=== PATIENT | male | born 1950 | race Caucasian/White ===

== ENCOUNTER 2019-10-18 08:29 | Outpatient (CLI) | payer OTHER, SELFPAY ==
[2019-10-18 09:00] LABS: Potassium 3.7 mmol/L (3.4-5.0)
[2019-10-18 09:04] LABS: Alanine Aminotransferase 17 U/L (4-50); Albumin Level 4.3 g/dL (3.5-5.1); Alkaline Phosphatase 91 U/L (38-126); Aspartate Amino Transferase 21 U/L (17-59); Bilirubin,Total 1.2 mg/dL (0.2-1.3); Blood Urea Nitrogen 16 mg/dL (9-20); Calcium 8.5 mg/dL (8.4-10.2); Carbon Dioxide 26 mmol/L (22-30); Chloride 108 mmol/L (98-107); Cholesterol 84 mg/dL (0-200); Estimated Glomerular Filt Rate > 60; Glucose 114 mg/dL (75-110); HDL Direct 27 mg/dL; Sodium 141 mmol/L (137-145); Triglycerides 66 mg/dL (<150)
[2019-10-18 09:11] LABS: LDL Cholesterol Direct 41 mg/dL
== END 2019-10-18 08:30 | disposition home or self-care (01) ==
PROVIDERS: PCP Emergency Medicine; Visit Provider Emergency Medicine
DX: E78.5 Hyperlipidemia, unspecified (principal)
CPT/HCPCS: 36415; 80053; 80061

== ENCOUNTER 2020-02-10 09:22 | Outpatient (CLI) | payer OTHER, SELFPAY ==
[2020-02-10 10:07] LABS: Alanine Aminotransferase 13 U/L (4-50); Albumin Level 4.3 g/dL (3.5-5.1); Alkaline Phosphatase 81 U/L (38-126); Anion Gap 7 mmol/L (8-16); Aspartate Amino Transferase 20 U/L (17-59); Bilirubin,Total 1.1 mg/dL (0.2-1.3); Blood Urea Nitrogen 20 mg/dL (9-20); Carbon Dioxide 28 mmol/L (22-30); Chloride 106 mmol/L (98-107); Cholesterol 96 mg/dL (0-200); Estimated Glomerular Filt Rate 60; Glucose 108 mg/dL (75-110); HDL Direct 34 mg/dL; Potassium 4.3 mmol/L (3.4-5.0); Sodium 141 mmol/L (137-145); Triglycerides 85 mg/dL (<150)
[2020-02-10 10:18] LABS: LDL Cholesterol Direct 47 mg/dL
== END 2020-02-10 09:23 | disposition home or self-care (01) ==
PROVIDERS: PCP Emergency Medicine; Visit Provider Emergency Medicine
DX: E78.5 Hyperlipidemia, unspecified (principal)
CPT/HCPCS: 36415; 80053; 80061

== ENCOUNTER 2020-05-11 09:25 | Outpatient (CLI) | payer OTHER, SELFPAY ==
[2020-05-11 09:54] LABS: Alanine Aminotransferase 14 U/L (4-50); Albumin Level 4.2 g/dL (3.5-5.1); Alkaline Phosphatase 73 U/L (38-126); Anion Gap 7 mmol/L (8-16); Aspartate Amino Transferase 18 U/L (17-59); Bilirubin,Total 0.8 mg/dL (0.2-1.3); Blood Urea Nitrogen 15 mg/dL (9-20); Calcium 8.7 mg/dL (8.4-10.2); Carbon Dioxide 30 mmol/L (22-30); Chloride 108 mmol/L (98-107); Cholesterol 78 mg/dL (0-200); Estimated Glomerular Filt Rate 60; Glucose 135 mg/dL (75-110); HDL Direct 35 mg/dL; Sodium 145 mmol/L (137-145); Triglycerides 64 mg/dL (<150)
[2020-05-11 10:31] LABS: LDL Cholesterol Direct < 30 mg/dL
== END 2020-05-11 09:26 | disposition home or self-care (01) ==
PROVIDERS: PCP Emergency Medicine; Visit Provider Emergency Medicine
DX: E78.5 Hyperlipidemia, unspecified (principal)
CPT/HCPCS: 36415; 80053; 80061

== ENCOUNTER 2020-07-20 07:28 | Outpatient (CLI) | payer OTHER, SELFPAY ==
[2020-07-20 07:52] LABS: Alanine Aminotransferase 13 U/L (4-50); Albumin Level 4.3 g/dL (3.5-5.1); Alkaline Phosphatase 73 U/L (38-126); Anion Gap 8 mmol/L (8-16); Aspartate Amino Transferase 18 U/L (17-59); Bilirubin,Total 1.2 mg/dL (0.2-1.3); Blood Urea Nitrogen 18 mg/dL (9-20); Calcium 8.8 mg/dL (8.4-10.2); Carbon Dioxide 27 mmol/L (22-30); Chloride 109 mmol/L (98-107); Cholesterol 68 mg/dL (0-200); Estimated Glomerular Filt Rate > 60; Glucose 147 mg/dL (75-110); HDL Direct 30 mg/dL; Sodium 144 mmol/L (137-145); Triglycerides 58 mg/dL (<150)
[2020-07-20 08:22] LABS: Prostate Specific Antigen 0.3 ng/mL (< OR = 4.0)
[2020-07-20 08:42] LABS: LDL Cholesterol Direct < 30 mg/dL
== END 2020-07-20 07:29 | disposition home or self-care (01) ==
PROVIDERS: PCP Emergency Medicine; Visit Provider Emergency Medicine
DX: Z12.5 Encounter for screening for malignant neoplasm of prostate (principal); E78.5 Hyperlipidemia, unspecified
CPT/HCPCS: 36415; 80053; 80061; 84153; G0103

== ENCOUNTER 2020-08-30 14:23 | Outpatient (CLI) | payer OTHER, SELFPAY ==
[2020-08-30 14:44] LABS: Hematocrit 30.7 % (42.0-52.0); Hemoglobin 10.2 g/dL (14.0-18.0); Immature Reticulocyte Fraction 3.7 % (3.0-15.9); Lymphocytes Absolute Auto 0.59 K/mm3 (0.9-3.2); Lymphocytes Percent Auto 31.7 % (18.3-44.2); Mean Corpuscular HGB Conc 33.2 g/dl (32-36); Mean Corpuscular Hemoglobin 28.3 pg (26-34); Mean Platelet Volume 10.3 fl (7.4-10.4); Monocytes Absolute Auto 0.1 K/mm3 (0.1-0.6); Monocytes Percent Auto 5.9 % (2.6-8.5); Neutrophils Absolute Auto 1.2 K/mm3 (1.3-6.7); Neutrophils Percent Auto 62.4 % (45.5-73.1); Platelet Count Result 185 k/mm3 (150-375); Red Blood Count 3.61 M/mm3 (4.6-6.20); Red Cell Distribution Width 16.5 % (11.5-14.5); Reticulocyte Hemoglobin Conten 33.7 pg (28.2-35.7); Reticulocyte Percent 0.28 % (0.7-4.3); Reticulocytes Absolute 0.01 B/L (32.2-175.7)
[2020-08-30 14:49] LABS: White Blood Count 1.9 K/mm3 (4.5-10.0)
[2020-08-30 16:48] LABS: Iron 145 ug/dL (49-181)
[2020-08-30 16:58] LABS: Percent Iron Saturation 83 % (20-50)
[2020-08-31 07:58] LABS: Alanine Aminotransferase 21 U/L (4-50); Albumin Level 4.2 g/dL (3.5-5.1); Alkaline Phosphatase 75 U/L (38-126); Anion Gap 11 mmol/L (8-16); Aspartate Amino Transferase 18 U/L (17-59); Bilirubin,Total 2.5 mg/dL (0.2-1.3); Blood Urea Nitrogen 34 mg/dL (9-20); Calcium 9.1 mg/dL (8.4-10.2); Carbon Dioxide 30 mmol/L (22-30); Chloride 103 mmol/L (98-107); Estimated Glomerular Filt Rate 55; Glucose 115 mg/dL (75-110); Lactate Dehydrogenase 372 U/L (313-618); Sodium 144 mmol/L (137-145)
[2020-08-31 08:12] LABS: Potassium 4.4 mmol/L (3.4-5.0)
[2020-08-31 09:01] LABS: Folic Acid 12.5 ng/mL (2.76->20); Vitamin B12 > 1000.0 pg/mL (239-931)
[2020-09-02 19:20] LABS: Erythropoietin (EPO) 410.8 mIU/mL (2.6-18.5)
== END 2020-08-30 14:24 | disposition home or self-care (01) ==
LOC: ANHLAB 14:25
PROVIDERS: PCP Emergency Medicine; Visit Provider Internal Medicine Hematology & Oncology
DX: D64.9 Anemia, unspecified (principal)
CPT/HCPCS: 36415; 80053; 82607; 82668; 82728; 82746; 83540; 83550; 83615; 85025; 85046

== ENCOUNTER → 2020-08-31 02:35 | Outpatient (CLI) | payer OTHER, SELFPAY ==
[2020-08-31 22:46] LABS: SARS-CoV-2 RNA PCR Negative
== END ==
PROVIDERS: PCP Emergency Medicine; Visit Provider Internal Medicine Hematology & Oncology
DX: Z01.812 Encounter for preprocedural laboratory examination (principal); Z20.822 Contact with and (suspected) exposure to COVID-19
CPT/HCPCS: C9803; U0003; U0005

== ENCOUNTER 2020-09-03 01:48 | Day surgery (SDC) | payer OTHER, SELFPAY ==
[2020-09-02 16:56] VITALS: BMI 43.4
--- NOTE | ~2020-09-03 | BM_ITS ---
EXAMINATION: CCL bone marrow asp w bx diag DATE: 09/03/2020 09:46 INDICATION: Chronic anemia. TECHNIQUE: A time-out was performed to verify the patient's name, date of , and procedure to b e performed. The procedure including the risks, benefits, and alternatives was discussed with the pat ient. Risks discussed included bleeding and infection. The patient understood the risks and agreed to proceed. The skin overlying the left ilium was prepped and draped in usual sterile fashion. Anesth etic was administered with 1% lidocaine subcutaneously. 50 mcg fentanyl IV was given for pain control . An 11 gauge needle was inserted into the ilium with fluoroscopic guidance. Bone marrow was aspirat ed. An 8 gauge needle was then inserted into the ilium with fluoroscopic guidance. A core bone marrow biopsy was obtained. There were no immediate complications. Fluoroscopy exposure time was 0.0 minute s. The total number of images was 19. FINDINGS: Real-time fluoroscopy demonstrates a marker overlying the left posterior superior iliac spi ne. IMPRESSION: 1. Fluoro-guided bone marrow aspiration. 2. Fluoro-guided bone marrow core biopsy. Reviewed, dictated and finalized at location A. [employer]
[2020-09-03 08:05] LABS: Hematocrit 25.8 % (42.0-52.0); Hemoglobin 8.6 g/dL (14.0-18.0); Mean Corpuscular HGB Conc 33.3 g/dl (32-36); Mean Corpuscular Hemoglobin 28.2 pg (26-34); Mean Corpuscular Volume 84.6 fl (80-100); Mean Platelet Volume 9.5 fl (7.4-10.4); Platelet Count Result 207 k/mm3 (150-375); Red Blood Count 3.05 M/mm3 (4.6-6.20); Red Cell Distribution Width 16.3 % (11.5-14.5)
[2020-09-03 08:09] LABS: White Blood Count 1.7 K/mm3 (4.5-10.0)
[2020-09-03 08:16] LABS: INR 1.2; Prothrombin Time 15.5 Seconds (11.1-14.7)
[2020-09-03 08:49] VITALS: BP 125/56; PULSE 69; RESP 18; TEMP 36.3; O2SAT 98; BMI 43.5
[2020-09-03 09:55] VITALS: BP 127/59; PULSE 65; RESP 15; O2SAT 98
[2020-09-03 10:10] VITALS: BP 123/61; PULSE 65; RESP 16; O2SAT 100
[2020-09-03 10:25] VITALS: BP 120/55; PULSE 68; RESP 15; O2SAT 100
--- NOTE | 2020-09-03 10:36 | SUR.PHASEII ---
Drsg remains clean dry and intact to left posterior hip. Taking po fluids without nausea or vomiting. IV d/c'd from left forearm, catheter intact. Discharge instructions reviewed with patient with stated understanding. Discharge via wheelchair to sister's car.
== END 2020-09-03 11:00 | disposition home or self-care (01) ==
PROVIDERS: PCP Emergency Medicine; Referring Provider Internal Medicine Hematology & Oncology; Visit Provider Radiology Diagnostic Radiology
DX: D64.9 Anemia, unspecified (principal); D47.09 Other mast cell neoplasms of uncertain behavior
CPT/HCPCS: 36415; 38222; 85027; 85610; 88184; 88185; 88305; 88311; 88313; 88342; 88360; 88364; 88365; C9803; J3010; J7040; U0003; U0005

== ENCOUNTER 2020-09-08 21:13 | Observation (INO) | payer OTHER, SELFPAY ==
--- NOTE | ~2020-09-08 | XR_ITS ---
XR chest 1V portable DATE: 09/08/2020 22:12 INDICATION: Dyspnea. History of hypertension. TECHNIQUE: Portable AP chest on 09/08/2020 at 2211 hours COMPARISON: 12/04/2017 two-view chest FINDINGS: Status post sternotomy. Cardiomegaly. There is pulmonary vascular congestion. There is mild prominence of the minor fissure suggesting possible subpleural edema. No pleural effusion or pneumot horax is evident. Diffuse osteopenia. IMPRESSION: Status post sternotomy Cardiomegaly Mild pulmonary vascular congestion, suggesting mild congestive heart failure Reviewed, dictated and finalized at location A.
[2020-09-08 21:16] VITALS: BP 135/54; PULSE 84; RESP 26; TEMP 37.7; O2SAT 95
[2020-09-08 21:24] VITALS: BP 135/54; PULSE 86; RESP 24; TEMP 37.7; O2SAT 96
--- NOTE | 2020-09-08 21:24 | PC.NURSE ---
Pt presents to ED from home via EMS with complaints of sob for the past 1.5 hours. Pt noted with O2 saturation of 97% on room air at this time. 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 Pt denies hx of respiratory issues. Pt admits to hx of frequent blood transfusion with the last being one week ago with an administration of 3 units. Skin and mucous membranes noted to be pale, warm and intact. Pt admits to diarrhea and denies fever. States sob increases with activity. No edema noted to extremities or face. Pt alert and oriented x4. Pt also complaining of palpitations and no cough.
[2020-09-08 21:44] LABS: Alveolar/Arterial O2 Gradient 32.2 mmHg; Base Excess ABG -0.5 mEq/l (+/-2.0); Fractional Inspired Oxygen 21 %; HCO3 ABG 23.3 mEq/l (22.0-26.0); Oxygen Content ABG 8.9 %vol (16.0-22.0); Oxygen Saturation ABG 96.1 % (95.0-100.0); Oxyhemoglobin 92.8 % THb (90.0-100.0); PCO2 ABG 33.7 mmHg (35.0-45.0); PO2 ABG 77.2 mmHg (80.0-100.0); PO2 FiO2 Ratio Arterial Blood 3.68 %; pH ABG 7.457 (7.350-7.450)
[2020-09-08 21:45] LABS: Device ROOM AIR; Site Drawn LEFT BRACHIAL; Total Hemoglobin 6.7 g/dL (12.0-18.0)
--- NOTE | 2020-09-08 21:49 | PC.NURSE ---
Pt resting on cart with call button and personal items within reach. RT completed ABG at bedside. Pt aware of need for UA and provided urinal for specimen. Lab draws completed and sent to lab. Pt remains on room at with O2 saturation of 96%. Pt sob with manipulation in bed. Advised to press call button for assistance.
[2020-09-08 22:01] LABS: Mean Corpuscular Hemoglobin 27.8 pg (26-34); Mean Corpuscular Volume 84.3 fl (80-100); Mean Platelet Volume 9.7 fl (7.4-10.4); Platelet Count Result 190 k/mm3 (150-375); Red Blood Count 2.23 M/mm3 (4.6-6.20); Red Cell Distribution Width 15.9 % (11.5-14.5)
--- NOTE | 2020-09-08 22:06 | PC.NURSE ---
CXR completed at bedside.
[2020-09-08 22:12] LABS: INR 1.2; Prothrombin Time 15.8 Seconds (11.1-14.7)
[2020-09-08 22:13] LABS: Partial Thromboplastin Time 45.6 SECONDS (22.3-36.8)
[2020-09-08 22:15] LABS: Magnesium 1.8 mg/dL (1.6-2.3)
[2020-09-08 22:16] LABS: Alanine Aminotransferase 21 U/L (4-50); Albumin Level 3.4 g/dL (3.5-5.1); Alkaline Phosphatase 62 U/L (38-126); Anion Gap 7 mmol/L (8-16); Aspartate Amino Transferase 17 U/L (17-59); Bilirubin,Total 1.5 mg/dL (0.2-1.3); Blood Urea Nitrogen 18 mg/dL (9-20); Calcium 8.2 mg/dL (8.4-10.2); Carbon Dioxide 25 mmol/L (22-30); Chloride 110 mmol/L (98-107); Estimated Glomerular Filt Rate > 60; Glucose 188 mg/dL (75-110); Hemoglobin 6.2 g/dL (14.0-18.0); Potassium 3.3 mmol/L (3.4-5.0); Sodium 142 mmol/L (137-145)
[2020-09-08 22:17] LABS: Hematocrit 18.8 % (42.0-52.0)
[2020-09-08 22:23] LABS: Lymphocytes Absolute Manual 0.26 K/mm3 (1.1-4.5); Monocytes Absolute Manual 0.02 K/mm3 (0.1-0.90); Monocytes Percent Manual 2 % (3-9); Neutrophils Percent Manual 72 % (46-73); Platelet Estimate Adequate (Adequate); Total Cells Counted 100
[2020-09-08 22:24] LABS: Anisocytosis 2+ (NORMAL); Hypochromasia 1+ (NORMAL)
[2020-09-08 22:28] LABS: NT Pro B Type Natriuretic Pept 2370 PG/ML (5-100); Troponin I < 0.012 ng/mL (0.000-0.034)
[2020-09-08 22:30] VITALS: BP 152/57; PULSE 80; RESP 31; O2SAT 96
--- NOTE | 2020-09-08 22:43 | ED.GENADULT ---
HPI - General Adult General Chief complaint: Shortness of Breath/Dyspnea Stated complaint: sob Time Seen by Provider: 09/08/20 21:22 History of Present Illness HPI narrative: Patient is a 70-year-old gentleman who presents the emergency department with chief complaint of shortness of breath. The patient reports that he has history of anemia and has required blood transfusions every couple of weeks patient states that those were done at [facility] and she just had a bone marrow biopsy done at our facility as an outpatient. The patient states that since being home he has gotten progressively weaker and progressively more short of breath. Patient states it feels as though his hemoglobin is down again Related Data Home Medications Medication Instructions Recorded Confirmed B-complex with vitamin C 1 tablet PO DAILY 06/30/19 09/02/20 cholecalciferol (vitamin D3) 50 2,000 unit PO DAILY 06/30/19 09/02/20 mcg (2,000 unit) tablet ferrous sulfate 324 mg PO DAILY 09/02/20 09/02/20 levofloxacin 500 mg PO DAILY 09/02/20 09/02/20 loratadine [Allergy Relief 10 mg PO DAILY 09/02/20 09/02/20 (loratadine)] Allergies Allergy/AdvReac Type Severity Reaction Status Date / Time Penicillins Allergy Unknown Unknown Verified 09/02/20 17:03 shellfish derived Allergy Unknown Verified 09/02/20 17:03 Review of Systems Review of Systems: Narrative: A 10 system review of systems was completed on the patient and is negative except for what is stated in the HPI. Nursing and ancillary documentation was reviewed. [facility] Past Medical History Medical History (Updated 09/08/20 @ 22:48 by Raji Ko MD) BPH (benign prostatic hyperplasia) Vitamin D deficiency disease Family History Family History Sibling Diabetes mellitus Family history of cardiovascular disease Family history of sleep apnea Familial primary pulmonary hypertension Family history of chronic obstructive pulmonary disease Father Family history of cardiovascular disease, Onset Age: 65 Family history of coronary artery disease Mother Family history of malignant neoplasm, Onset Age: 72 Diabetes mellitus Family history of liver disease Social History Social History Smoking packs per day: 0.5 Smoking cigarettes per day: 10.0 Years smoked: 40 Smoking pack-years: 20.00 Smoking status: Former smoker Tobacco type: cigarettes Second hand tobacco smoke exposure: Yes Smoking end date: 06/25/07 Alcohol intake: current Substance use: current Substance use type: marijuana Spiritual care concerns: No Exam Narrative: Exam Narrative: GENERAL: Well-appearing, well-nourished, and in no acute distress. HEAD: Normocephalic, atraumatic. EYES: PERRLA and EOMI. ENT: Nares clear, no rhinorrhea or epistaxis. Mucous membranes moist. NECK: Supple. CHEST: Clear to auscultation. No respiratory distress. HEART: Regular rate and rhythm. No murmur heard. Normal peripheral pulses. ABDOMEN: Soft, nontender, nondistended, normal active bowel sounds. EXTREMITIES: Normal range of motion. No edema. SKIN: Warm, dry, no rash. NEURO: No focal deficits. Alert and oriented x3. PSYCH: Normal mood and affect. Course Vital Signs Vital signs: Vital Signs Temperature 37.7 C H 09/08/20 21:16 Pulse Rate 84 09/08/20 21:16 Respiratory Rate 26 H 09/08/20 21:16 Blood Pressure 135/54 L 09/08/20 21:16 Pulse Oximetry 95 09/08/20 21:16 Temperature 37.7 C H 09/08/20 21:24 Pulse Rate 86 09/08/20 21:24 Respiratory Rate 24 H 09/08/20 21:24 Blood Pressure 135/54 L 09/08/20 21:24 Pulse Oximetry 96 09/08/20 21:24 Medical Decision Making Vital Signs Vital Signs: Vital Signs Temperature 37.7 C H 09/08/20 21:16 Pulse Rate 84 09/08/20 21:16 Respiratory Rate 26 H 09/08/20 21:16 Blood P
[2020-09-08 23:30] VITALS: BP 149/58; PULSE 77; RESP 32; O2SAT 98
--- NOTE | 2020-09-08 23:51 | PC.NURSE ---
Pt resting on cart in its lowest position with call button and personal items within reach. Vitals remain stable and pt is alert and oriented X4. Pt is still unable to urinated at this time. Pt advised to press call button for assistance. Pt resquesting ice water at this time.
[2020-09-09] VITALS (17 sets, daily range): BP systolic 102–167; BP diastolic 44–67; PULSE 66–78; RESP 14–31; TEMP 36.1–37; O2SAT 92–100; BMI 43.7
--- NOTE | 2020-09-09 00:40 | PC.NURSE ---
Pt resting on cart with stable vitals. Advised to press call button for assistance. Pt provided ice water. Call button and personal items within reach. Pt aware of poc and aware of bed assignment. No complaints or concerns voiced at this time.
--- NOTE | 2020-09-09 01:38 | ADMGEN ---
This patient, Shaheen Castañeda, was admitted to Medical Room 341-01. Patient/family oriented to hospital policies and general routines including ID bracelet, bed and alarms, visiting hours, pain management, procedures, bathroom and other care routines, personal items, smoking policy, room service/diet, and visiting hours. Information on how to activate the Rapid Response Team has been discussed. Patient/Family are encouraged to report perceived risks to care and to ask questions if they do not understand what they are told or what they should do.
[2020-09-09] MEDS: SODIUM CHLORIDE 0.9% IV 250 ML 30 ML IV CONT (03:40)
[2020-09-09 04:14] LABS: Appearance Urine Clear (Clear); Color Urine Yellow (Yellow); Glucose Urine UA Negative (Negative); Protein Urine Negative (Negative); Specific Grav Ur 1.025 (1.001-1.035); pH Urine 6.5 (5.0-9.0)
[2020-09-09 04:15] LABS: Add Urine Microscopic? YES; Bilirubin Urine Negative (Negative); Blood Urine Trace (Negative); Ketones Urine Negative (Negative); Leukocyte Esterase Ur Negative LEU/UL (Negative); Nitrate Urine Negative (Negative); RBC Urine 0-2 /hpf (0-2)
[2020-09-09 04:16] LABS: WBC Urine 0-3 /hpf
--- NOTE | 2020-09-09 08:16 | PM.IMHP ---
H&P: HPI History of Present Illness Date/Time: 09/09/20 08:16 This is a 70-year-old man with past medical history significant for obesity, gout, recent admission and discharge from the outside hospital in which he was admitted for anemia workup patient underwent bone marrow biopsy, he is still awaiting results and he is seeing Dr. Lopez from Hematology-Oncology service. He has received multiple blood transfusions prior to coming to our hospital 4 units during his 1st admission to the hospital on the 3 units on another occasion within the last month or so. patient is extensive GI workup as well. he has being feeling very fatigue, tired shortness of breath of breath with activity, palpitation, chest discomfort, no leg swelling, no cough, no sputum production, no claudication, no syncope or near syncope, no melena, no hematemesis, no hemoptysis, no bleeding of the gums, no weight loss, has had decreased appetite and is still sore from his bone marrow biopsy. He presented to the emergency room feeling very tired and short of breath he was found again to have a hemoglobin of 6 . He states that he lives by himself in a 3 story house and that has being gotten a lot more difficult for him to handle his house chores like laundry as he has to go up and down the stairs. He denies any fevers chills or rigors. He was also found to have an elevated BNP. He has being admitted to the hospital for for their assessment and evaluation and management and treatment. Chief Complaint: sob Review of Systems Review of Systems: Narrative: PATIENT PRESENTED TO EMERGENCY ROOM DUE TO WORSENING FATIGUE AND SHORTNESS OF BREATH Constitutional: Comments: NO FEVERS ,NO RIGORS, NO CHILLS , FEELING FATIGUED, LOW ENERGY ,TIRED Cardiovascular: Comments: precordial chest discomfort mainly with activity, shortness of breath with activity, no PND no orthopnea no leg swelling, no syncope or near syncope. Respiratory: Comments: no cough no sputum production Gastrointestinal: Comments: no nausea, no vomiting, no diarrhea, no abdominal pain Musculoskeletal: Comments: no muscle or joint pain Integumentary/Breasts: Comments: no rash Neurologic: Comments: no sensorimotor deficit Hematologic/Lymphatic: Comments: low blood count PMFSH Past Medical History Medical History (Updated 09/09/20 @ 13:44 by Gunnar Colindres MD) BPH (benign prostatic hyperplasia) Vitamin D deficiency disease Family History Family History Sibling Diabetes mellitus Family history of cardiovascular disease Family history of sleep apnea Familial primary pulmonary hypertension Family history of chronic obstructive pulmonary disease Father Family history of cardiovascular disease, Onset Age: 65 Family history of coronary artery disease Mother Family history of malignant neoplasm, Onset Age: 72 Diabetes mellitus Family history of liver disease Social History Social History Smoking packs per day: 1 Smoking cigarettes per day: 20.0 Years smoked: 40 Smoking pack-years: 40.00 Smoking status: Former smoker Tobacco type: cigarettes Second hand tobacco smoke exposure: Yes Smoking end date: 06/25/07 Alcohol intake: never Substance use: current Substance use type: marijuana Gender identity (if verbalized by the patient): Male Sexual Orientation (if Verbalized by the Patient): Straight or Heterosexual Spiritual care concerns: No Meds Home Medications and Allergies Home Medications Medication Instructions Recorded Confirmed Type B-complex with vitamin C 1 tablet PO DAILY 06/30/19 09/09/20 History cholecalciferol (vitamin D3) 50 2,000 unit PO DAILY 06/30/19 09/09/20 History mcg (2,000 unit) tablet allopurinol 100 mg tablet 100 mg PO BID #180 tablet 05/26/20 09/09/20 Rx tamsulosin 0.4 mg capsu
[2020-09-09] MEDS: diphenhydrAMINE HCl INJ 50 MG/ML VIAL IV PUSH (09:00)
[2020-09-09] MEDS: FUROSEMIDE INJ 40 MG/4 ML VIAL 10 MG IV PUSH (09:00)
[2020-09-09 11:31] LABS: Hematocrit 22.3 % (42.0-52.0); Hemoglobin 7.4 g/dL (14.0-18.0); Lymphocytes Percent Auto 38.5 % (18.3-44.2); Mean Corpuscular HGB Conc 33.2 g/dl (32-36); Mean Corpuscular Hemoglobin 28.1 pg (26-34); Mean Corpuscular Volume 84.8 fl (80-100); Mean Platelet Volume 9.5 fl (7.4-10.4); Monocytes Absolute Auto 0.1 K/mm3 (0.1-0.6); Monocytes Percent Auto 3.8 % (2.6-8.5); Neutrophils Absolute Auto 0.8 K/mm3 (1.3-6.7); Neutrophils Percent Auto 57.7 % (45.5-73.1); Platelet Count Result 181 k/mm3 (150-375); Red Blood Count 2.63 M/mm3 (4.6-6.20); Red Cell Distribution Width 15.7 % (11.5-14.5)
[2020-09-09 11:40] LABS: Ovalocytes 1+ (NORMAL); Platelet Estimate Adequate (Adequate); Poikilocytosis 1+ (NORMAL); White Blood Count 1.3 K/mm3 (4.5-10.0)
[2020-09-09 11:43] LABS: Anion Gap 4 mmol/L (8-16); Blood Urea Nitrogen 16 mg/dL (9-20); Calcium 8.1 mg/dL (8.4-10.2); Carbon Dioxide 28 mmol/L (22-30); Chloride 108 mmol/L (98-107); Estimated CRCL calculation 68 ml/min; Estimated Glomerular Filt Rate > 60; Glucose 115 mg/dL (75-110); Potassium 3.4 mmol/L (3.4-5.0); Sodium 140 mmol/L (137-145)
[2020-09-09 15:31] LABS: Troponin I < 0.012 ng/mL (0.000-0.034)
[2020-09-09 17:31] LABS: Hematocrit 21.6 % (42.0-52.0); Hemoglobin 7.2 g/dL (14.0-18.0)
--- NOTE | 2020-09-09 18:32 | PDONCCN ---
HPI - Date of Consult Date/Time: 09/09/20 18:32 Requesting Physician: Rahul Mejia MD Primary Care Provider: Brian Lara MD - Consult Narrative Reason for consult: Leukopenia and anemia Narrative: Shaheen Castañeda is a 70 year old male with history of BPH and obesity was recently seen in the office for initial consultation for leukopenia and anemia. Bone marrow aspiration and biopsy was ordered and performed on September 03 2020 that showed myelodysplastic syndrome along with systemic mastocytosis and plasma cell disorder. He has been receiving blood transfusion since July of 2020. He came into the hospital with tiredness and fatigue and found to have a hemoglobin of 6.2 with WBC of 1.0. He denies any bleeding including melena and hematochezia. He has been complaining of extremely tired and fatigued but not started feeling better after receiving the blood transfusion. Review of Systems - Review of Systems All systems reviewed & are unremarkable except as noted in HPI and [facility] Medical History: Medical History (Last Reviewed 09/08/20 @ 22:47 by Raji Ko MD) BPH (benign prostatic hyperplasia) Vitamin D deficiency disease Family History: Family History (Last Reviewed 09/08/20 @ 22:47 by Raji Ko MD) Sibling Diabetes mellitus Family history of cardiovascular disease Family history of sleep apnea Familial primary pulmonary hypertension Family history of chronic obstructive pulmonary disease Father Family history of cardiovascular disease, Onset Age: 65 Family history of coronary artery disease Mother Family history of malignant neoplasm, Onset Age: 72 Diabetes mellitus Family history of liver disease - Social History Social History: Social History (Last Reviewed 09/08/20 @ 22:47 by Raji Ko MD) Gender Identity: Gender identity (if verbalized by the patient): Male Sexual Orientation: Sexual Orientation (if Verbalized by the Patient): Straight or Heterosexual Alcohol Use: Alcohol intake: never Substance Use: Substance use: current Substance use type: marijuana Others: Spiritual care concerns: No Smoking Status: Smoking status: Former smoker Tobacco type: cigarettes Second hand tobacco smoke exposure: Yes Smoking end date: 06/25/07 Approximate Smoking End Date: 1999 Smoking Pack-years: Smoking packs per day: 1 Smoking cigarettes per day: 20.0 Years smoked: 40 Smoking pack-years: 20.00 Meds Home Medications Medication Instructions Recorded Confirmed Type B-complex with vitamin C 1 tablet PO DAILY 06/30/19 09/09/20 History cholecalciferol (vitamin D3) 50 2,000 unit PO DAILY 06/30/19 09/09/20 History mcg (2,000 unit) tablet allopurinol 100 mg tablet 100 mg PO BID #180 tablet 05/26/20 09/09/20 Rx ferrous sulfate 324 mg PO DAILY 09/02/20 09/09/20 History loratadine [Allergy Relief 10 mg PO DAILY 09/02/20 09/09/20 History (loratadine)] rivaroxaban [Xarelto] 15 mg PO DAILY 09/09/20 09/09/20 History simvastatin 20 mg PO QPM 09/09/20 09/09/20 History tamsulosin 0.4 mg PO DAILY 09/09/20 09/09/20 History Allergies Allergy/AdvReac Type Severity Reaction Status Date / Time Penicillins Allergy Unknown Unknown Verified 09/02/20 17:03 shellfish derived Allergy Unknown Verified 09/02/20 17:03 Results - Labs CBC & Chem 7: 09/09/20 17:19 09/09/20 11:22 Labs: Short CBC 09/08/20 09/09/20 09/09/20 Range/Units 21:48 11:22 17:19 WBC 1.0 L* 1.3 L* (4.5-10.0) K/mm3 Hgb 6.2 L* 7.4 L 7.2 L (14.0-18.0) g/dL Hct 18.8 L* 22.3 L 21.6 L (42.0-52.0) % Plt Count 190 181 (150-375) k/mm3 BMP 09/08/20 09/09/20 21:48 11:22 Sodium 142 140 Potassium 3.3 L 3.4 Chloride 110 H 108 H Carbon Dioxide 25 28 BUN 18 D 16 Creatinine 1.10 1.00 Glucose 188 H 115 H Calcium 8.2 L 8.1 L Cardiac Enzym
[2020-09-09] MEDS: EPOETIN ALFA-EPBX 10,000 UNITS/ML VIAL 20000 UNITS SUB-Q (20:29)
--- NOTE | 2020-09-10 | ECHO_ITS ---
Patient Info Name: Shaheen Castañeda Age: 70 years : 1950 Gender: Male Ht: 63 in Wt: 246 lbs BSA: 2.29 m2 HR: 67 bpm BP: 146 / 73 mmHg Heart Rhythm: Sinus Rhythm Technical Quality: Fair Exam Date: 09/10/2020 10:33 AM Exam Location: [facility] Pulmonary Exam Room: 341 Patient Status: Inpatient Admit Date: 09/09/2020 Staff Ordering Physician: Gunnar Colindres MD Director Information Security: Radha Reinoso RDCS Attending Provider: Rahul Mejia MD Referring Physician: Bernadine MCCARTHY; Exam Type: CA echo dop color flow w con Study Info Indications - CHF Complete two-dimensional, color flow and Doppler transthoracic echocardiogram is performed with contrast to opacify the left ventricle and to improve the deliniation of the left ventricle endocardial borders. Contrast/Agitated Saline Contrast/Ag. Saline: Definity Amount: --- ml Administered By: Kenzie Hdz RN Existing IV Access: Yes Summary 1. Technically difficult image quality, definity contrast used to improve exam quality. 2. Preserved left ventricular systolic function with grade 1 diastolic noncompliance. 3. No significant valvular lesions. 4. Mitral annular calcification. 5. Mild left atrial enlargement. Left Ventricular Outflow Tract Name Value Normal LVOT 2D LVOT Diameter 2.11 cm LVOT Doppler LVOT Peak Gradient 9 mmHg LVOT Mean Gradient 6 mmHg LVOT VTI 32.29 cm LVOT VTI/AV VTI Ratio 0.99 LVOT Stroke Volume 113.24 ml LVOT CO 24.04 l/min LVOT CI 10.50 L/min/m2 Pulmonic Valve Name Value Normal PV Doppler PV Peak Gradient 3 mmHg Mitral Valve Name Value Normal MV Doppler MV Decel Wise 609.45 cm/s2 MV PHT 0 s MV Area (PHT) 3.83 cm2 4.00-5.00 MV Diastolic Function MV E Peak Velocity 120.82 cm/s MV A Peak Velocity 106.93 cm/s MV E/A 1.13 MV Decel Time 0 s Tricuspid Valve Name Value Normal TV Regurgitation Doppler
[2020-09-10 05:24] VITALS: BP 146/73; PULSE 67; RESP 14; TEMP 36.3; O2SAT 96
[2020-09-10 10:59] LABS: Immunoglobulin A 129 mg/dL (70-400); Immunoglobulin M 42 mg/dL (40-230)
[2020-09-10] MEDS: PERFLUTREN LIPID MICROSPHERES 1.5 ML VIAL DILUTED TO 10 ML TOTAL VOLUME IV PUSH (11:10)
--- NOTE | 2020-09-10 11:34 | PM.DS ---
DS: Admitting Diagnosis Admitting Diagnosis Admitting Diagnosis: (1) Symptomatic anemia: (2) Myelodysplasia (myelodysplastic syndrome): (3) Hyperlipidemia: (4) Afib: (5) HTN (hypertension): (6) Vitamin D deficiency disease: (7) BPH (benign prostatic hyperplasia): (8) COPD (chronic obstructive pulmonary disease): (9) CHF (congestive heart failure): DS: Discharge Diagnosis Discharge Diagnosis (1) Symptomatic anemia: Code(s): D64.9 - Anemia, unspecified Status: Acute Assessment and Plan: patient is status post a blood transfusion hemoglobin has remained stable will be follow-up in the outpatient setting with Hematology-Oncology also has received Procrit. 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 follow-up in outpatient setting with Hematology-Oncology appreciate hematology oncology note (3) CHF (congestive heart failure): Code(s): I50.9 - Heart failure, unspecified Status: Acute Assessment and Plan: stable follow-up in outpatient setting (4) COPD (chronic obstructive pulmonary disease): Code(s): J44.9 - Chronic obstructive pulmonary disease, unspecified Status: Acute Assessment and Plan: stable follow-up in the outpatient setting (5) Afib: Qualifiers: Atrial fibrillation type: paroxysmal Qualified Code(s): I48.0 - Paroxysmal atrial fibrillation Code(s): I48.91 - Unspecified atrial fibrillation Status: Acute Assessment and Plan: rate control holding anticoagulation due to low blood count (6) HTN (hypertension): Qualifiers: Hypertension type: essential hypertension Qualified Code(s): I10 - Essential (primary) hypertension Code(s): I10 - Essential (primary) hypertension Status: Acute Assessment and Plan: stable restart meds as needed (7) Vitamin D deficiency disease: Code(s): E55.9 - Vitamin D deficiency, unspecified Status: Acute Assessment and Plan: continue vitamin-D supplement (8) BPH (benign prostatic hyperplasia): Qualifiers: Lower urinary tract symptom presence: symptoms absent Qualified Code(s): N40.0 - Benign prostatic hyperplasia without lower urinary tract symptoms Code(s): N40.0 - Benign prostatic hyperplasia without lower urinary tract symptoms Status: Acute Assessment and Plan: continue Flomax DS: Summary Hospital Course Reason for hospitalization: SOB. Hospital Course: This is a 70-year-old man with past medical history significant for obesity, gout, recent admission and discharge from the outside hospital in which he was admitted for anemia workup patient underwent bone marrow biopsy, he is still awaiting results and he is seeing Dr. Lopez from Hematology-Oncology service. He has received multiple blood transfusions prior to coming to our hospital 4 units during his 1st admission to the hospital on the 3 units on another occasion within the last month or so. patient has had extensive GI workup as well. he has being feeling very fatigue, tired, shortness of breath of breath with activity, palpitation, chest discomfort, no leg swelling, no cough, no sputum production, no claudication, no syncope or near syncope, no melena, no hematemesis, no hemoptysis, no bleeding of the gums, no weight loss, has had decreased appetite and is still sore from his bone marrow biopsy. He presented to the emergency room feeling very tired and short of breath he was found again to have a hemoglobin of 6 . He states that he lives by himself in a 3 story house and that has being gotten a lot more difficult for him
[2020-09-10 14:50] VITALS: BP 134/59; PULSE 67; RESP 16; TEMP 36.2; O2SAT 98
[2020-09-10 15:21] LABS: Hematocrit 21.3 % (42.0-52.0); Hemoglobin 7.2 g/dL (14.0-18.0)
[2020-09-13 12:20] LABS: Kappa\\Lambda Light Chains 1.49 (0.26-1.65); Lambda Light Chain 21.8 mg/L (5.7-26.3)
[2020-09-13 20:54] LABS: Albumin 3.4 g/dL (3.8-4.8); Alpha 1 Globulin 0.3 g/dL (0.2-0.3); Alpha 2 Globulin 0.5 g/dL (0.5-0.9); Beta 1 Globulin 0.3 g/dL (0.4-0.6); Gamma Globulin 0.9 g/dL (0.8-1.7); Protein, Total 5.6 g/dL (6.1-8.1)
[2020-09-22 13:42] LABS: Immunoglobulin G 1016 mg/dL (700-1600)
== END 2020-09-10 17:03 | disposition home or self-care (01) ==
LOC: ANHED 21:31 → ANH3MED 09-09 01:47 → ANH3MEDSUR 09-14 07:42
PROVIDERS: Internal Medicine Hematology & Oncology; Admitting Provider Family Medicine; Emergency Provider Emergency Medicine; PCP Emergency Medicine; Visit Provider Internal Medicine
DX: D46.9 Myelodysplastic syndrome, unspecified (principal); E78.5 Hyperlipidemia, unspecified; E66.9 Obesity, unspecified; E55.9 Vitamin D deficiency, unspecified; I50.9 Heart failure, unspecified; I48.91 Unspecified atrial fibrillation; I11.0 Hypertensive heart disease with heart failure; J44.9 Chronic obstructive pulmonary disease, unspecified; N40.0 Benign prostatic hyperplasia without lower urinary tract symptoms; R06.02 Shortness of breath; Z87.891 Personal history of nicotine dependence; Z68.41 Body mass index [BMI] 40.0-44.9, adult
CPT/HCPCS: 36415; 36430; 36600; 71045; 80048; 80053; 81001; 82784; 82805; 83735; 83880; 83883; 84155; 84165; 84484; 85014; 85018; 85025; 85610; 85730; 86334; 86850; 86900; 86901; 86923; 96372; 96374; 96375; 99285; C8929; G0378; J1200; J1940; J7050; P9016; Q5106; Q9957

== ENCOUNTER 2020-09-17 21:34 | Observation (INO) | payer OTHER, SELFPAY ==
--- NOTE | ~2020-09-17 | XR_ITS ---
EXAMINATION: XR chest 1V portable EXAM DATE: 09/17/2020 22:27 INDICATION: Weakness, dizziness and shortness of breath. TECHNIQUE: Portable AP frontal chest x-ray was obtained. Comparison is made to prior examination from 09/08/2020. FINDINGS: Sternotomy wires are present without findings to suggest sternal dehiscence. The cardiac si lhouette is enlarged. There is pulmonary vascular congestion. No confluent consolidation, pneumothora x or pleural effusion suspected. There are bony degenerative changes. There is no significant interva l change. IMPRESSION: Cardiomegaly, congestive changes. Reviewed, dictated and finalized at location G.
[2020-09-17 21:43] VITALS: BP 149/64; PULSE 76; RESP 22; TEMP 35.9; O2SAT 100
--- NOTE | 2020-09-17 22:07 | ECG_ITS ---
Measurements Intervals [place] Rate: 72 P: 41 AL: 321 QRS: 38 QRSD: 117 T: 55 QT: 409 QTc: 450 Interpretive Statements SINUS RHYTHM WITH FIRST DEGREE AV BLOCK LOW QRS VOLTAGE IN PRECORDIAL LEADS INTRAVENTRICULAR CONDUCTION DELAY CONSIDER INFERIOR INFARCT, AGE INDETERMINATE BORDERLINE T WAVE ABNORMALITY- ANTERIOR LEADS ABNORMAL ECG Electronically Signed On 09-18-2020 7:47:59 CDT by Will Hernandez D.O.
[2020-09-17 22:13] VITALS: BP 137/51; PULSE 77; RESP 24; O2SAT 98
[2020-09-17 22:25] LABS: Immature Granulocyte Absolute 0.01 K/mm3 (0.00-0.031); Immature Granulocyte Percent A 0.9 % (0-0.5); Lymphocytes Absolute Auto 0.42 K/mm3 (0.9-3.2); Lymphocytes Percent Auto 36.2 % (18.3-44.2); Mean Corpuscular HGB Conc 32.6 g/dl (32-36); Mean Corpuscular Hemoglobin 28.7 pg (26-34); Mean Corpuscular Volume 87.8 fl (80-100); Mean Platelet Volume 9.9 fl (7.4-10.4); Monocytes Absolute Auto 0.1 K/mm3 (0.1-0.6); Monocytes Percent Auto 4.3 % (2.6-8.5); Neutrophils Absolute Auto 0.7 K/mm3 (1.3-6.7); Neutrophils Percent Auto 58.6 % (45.5-73.1); Platelet Count Result 274 k/mm3 (150-375); Red Blood Count 1.64 M/mm3 (4.6-6.20); Red Cell Distribution Width 14.7 % (11.5-14.5)
[2020-09-17 22:36] LABS: White Blood Count 1.2 K/mm3 (4.5-10.0)
[2020-09-17 22:37] LABS: Alanine Aminotransferase 24 U/L (4-50); Alkaline Phosphatase 68 U/L (38-126); Anion Gap 8 mmol/L (8-16); Aspartate Amino Transferase 24 U/L (17-59); Bilirubin,Total 1.3 mg/dL (0.2-1.3); Blood Urea Nitrogen 21 mg/dL (9-20); Calcium 8.7 mg/dL (8.4-10.2); Carbon Dioxide 26 mmol/L (22-30); Chloride 108 mmol/L (98-107); Estimated CRCL calculation 67 ml/min; Estimated Glomerular Filt Rate > 60; Glucose 115 mg/dL (75-110); Hematocrit 14.4 % (42.0-52.0); Hemoglobin 4.7 g/dL (14.0-18.0); Potassium 3.9 mmol/L (3.4-5.0); Sodium 142 mmol/L (137-145)
[2020-09-17 22:48] LABS: Troponin I < 0.012 ng/mL (0.000-0.034)
--- NOTE | 2020-09-17 22:57 | ED.GENADULT ---
HPI - General Adult General Chief complaint: Dizziness Stated complaint: lightheaded/dizzy/weakness Time Seen by Provider: 09/17/20 22:09 History of Present Illness HPI narrative: Patient is a 70-year-old gentleman with history of myelodysplasia syndrome the presents to the emergency department with chief complaint of generalized weakness. The patient reports he was recently admitted to the hospital after his hemoglobin was down to 6 and he received a blood transfusion. Patient states that he has gone home and started progressively getting weaker he was treated with Procrit prior to leaving the hospital on his last admission. The patient states that days had a little bit of discomfort in his chest particular whenever he is ambulating and states that he feels short of breath whenever he gets up and walks around. The patient states this feels similar to whenever he is needed blood in the past. Related Data Home Medications Medication Instructions Recorded Confirmed B-complex with vitamin C 1 tablet PO DAILY 06/30/19 09/09/20 cholecalciferol (vitamin D3) 50 2,000 unit PO DAILY 06/30/19 09/09/20 mcg (2,000 unit) tablet ferrous sulfate 324 mg PO DAILY 09/02/20 09/09/20 loratadine [Allergy Relief 10 mg PO DAILY 09/02/20 09/09/20 (loratadine)] Xarelto 15 mg PO DAILY 09/09/20 09/09/20 simvastatin 20 mg PO QPM 09/09/20 09/09/20 tamsulosin 0.4 mg PO DAILY 09/09/20 09/09/20 Allergies Allergy/AdvReac Type Severity Reaction Status Date / Time Penicillins Allergy Unknown Unknown Verified 09/02/20 17:03 shellfish derived Allergy Unknown Verified 09/02/20 17:03 Review of Systems Review of Systems: Narrative: A 10 system review of systems was completed on the patient and is negative except for what is stated in the HPI. Nursing and ancillary documentation was reviewed. [facility] Past Medical History Medical History (Updated 09/17/20 @ 22:58 by Raji Ko MD) BPH (benign prostatic hyperplasia) Vitamin D deficiency disease Family History Family History Sibling Diabetes mellitus Family history of cardiovascular disease Family history of sleep apnea Familial primary pulmonary hypertension Family history of chronic obstructive pulmonary disease Father Family history of cardiovascular disease, Onset Age: 65 Family history of coronary artery disease Mother Family history of malignant neoplasm, Onset Age: 72 Diabetes mellitus Family history of liver disease Social History Social History Smoking packs per day: 1 Smoking cigarettes per day: 20.0 Years smoked: 40 Smoking pack-years: 40.00 Smoking status: Former smoker Tobacco type: cigarettes Second hand tobacco smoke exposure: Yes Smoking end date: 06/25/07 Alcohol intake: never Substance use: current Substance use type: marijuana Gender identity (if verbalized by the patient): Male Spiritual care concerns: No Comments Past medical history significant for myelodysplasia syndrome Exam Narrative: Exam Narrative: GENERAL: Well-appearing, well-nourished, and in no acute distress. HEAD: Normocephalic, atraumatic. EYES: PERRLA and EOMI. ENT: Nares clear, no rhinorrhea or epistaxis. Mucous membranes moist. NECK: Supple. CHEST: Clear to auscultation. No respiratory distress. HEART: Regular rate and rhythm. No murmur heard. Normal peripheral pulses. ABDOMEN: Soft, nontender, nondistended, normal active bowel sounds. EXTREMITIES: Normal range of motion. No edema. SKIN: Warm, dry, no rash. NEURO: No focal deficits. Alert and oriented x3. PSYCH: Normal mood and affect. Course Vital Signs Vital signs: Vital Signs Temperature 35.9 C L 09/17/20 21:43 Pulse Rate 76 09/17/20 21:43 Respiratory Rate 22 H 09/17/20 21:43 Blood Pressure 149/64 H 09/17/20 21:43 Pulse Oximetry 100 09/17/20 21:43
[2020-09-17 23:51] VITALS: BP 134/47; PULSE 70; RESP 28; TEMP 36.9; O2SAT 100
[2020-09-18] VITALS (20 sets, daily range): BP systolic 111–142; BP diastolic 50–61; PULSE 58–72; RESP 16–24; TEMP 36.1–37.1; O2SAT 96–100; BMI 44.1
[2020-09-18] MEDS: TUBING, BLOOD PLUM PUMP TUBING 1 EACH XX (00:29)
[2020-09-18] MEDS: SODIUM CHLORIDE 0.9% IV 250 ML 30 ML IV CONT (00:29)
--- NOTE | 2020-09-18 00:55 | ADMGEN ---
This patient, Shaheen Castañeda, was admitted to 2 Medical Room [facility]- @0055. Patient/family oriented to hospital policies and general routines including ID bracelet, bed and alarms, visiting hours, pain management, procedures, bathroom and other care routines, personal items, smoking policy, room service/diet, and visiting hours. Information on how to activate the Rapid Response Team has been discussed. Patient/Family are encouraged to report perceived risks to care and to ask questions if they do not understand what they are told or what they should do.
[2020-09-18 02:13] LABS: Troponin I < 0.012 ng/mL (0.000-0.034)
[2020-09-18 05:39] LABS: Troponin I < 0.012 ng/mL (0.000-0.034)
[2020-09-18] MEDS: SODIUM CHLORIDE 0.9% IV 1,000 ML 125 ML IV CONT (06:14)
--- NOTE | 2020-09-18 09:04 | PM.IMHP ---
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 He was discharged from [facility] on September 10 after receiving 2 units of packed cells for symptomatic anemia. His hemoglobin at that time was 6.2. At discharge it was 7.2. He presented to the emergency department on September 17 complaining of increased fatigue and exertional dyspnea with vague mild nonspecific and poorly localized chest discomfort during exertion. He was able to climb a flight of steps to the 2nd floor of his home with difficulty. He uses a cane for ambulation. No syncope presyncope or palpitations. No falls. No shortness of breath at rest. Upon presentation to emergency department he was found to have a hemoglobin of 4.7. 2 units of packed red cells were transfused overnight. He is feeling much better but still fatigued. He denied any history of indigestion melena hematochezia dysuria or hematuria. He denied any other abnormal bleeding such as nosebleeds gum bleeds or easy bruising. Review of Systems Review of Systems: All systems reviewed & are unremarkable except as noted in HPI and below PMFSH Past Medical History Medical History (Updated 09/18/20 @ 09:32 by Nolan Lobo MD) Afib BPH (benign prostatic hyperplasia) CHF (congestive heart failure) COPD (chronic obstructive pulmonary disease) Coronary artery disease HTN (hypertension) Myelodysplasia (myelodysplastic syndrome) Vitamin D deficiency disease Surgical History Surgical History (Updated 09/18/20 @ 09:30 by Nolan Lobo MD) History of coronary angioplasty with insertion of stent 1996 Hx of CABG approximately 2010 Family History Family History Sibling Diabetes mellitus Family history of cardiovascular disease Family history of sleep apnea Familial primary pulmonary hypertension Family history of chronic obstructive pulmonary disease Father Family history of cardiovascular disease, Onset Age: 65 Family history of coronary artery disease Mother Family history of malignant neoplasm, Onset Age: 72 Diabetes mellitus Family history of liver disease Social History Social History (Updated 09/18/20 @ 09:05 by Nolan Lobo MD) Smoking packs per day: 1 Smoking cigarettes per day: 20.0 Years smoked: 40 Smoking pack-years: 40.00 Smoking status: Former smoker Tobacco type: cigarettes Second hand tobacco smoke exposure: Yes Smoking end date: 06/25/07 Alcohol intake: current Substance use: current Substance use type: marijuana Other substance usage details: Years ago he used hallucinogens, mushrooms Gender identity (if verbalized by the patient): Male Spiritual care concerns: No Meds Home Medications and Allergies Home Medications Medication Instructions Recorded Confirmed Type B-complex with vitamin C 1 tablet PO DAILY 06/30/19 09/18/20 History cholecalciferol (vitamin D3) 50 2,000 unit PO DAILY 06/30/19 09/18/20 History mcg (2,000 unit) tablet allopurinol 100 mg tablet 100 mg PO BID #180 tablet 05/26/20 09/18/20 Rx ferrous sulfate 324 mg PO DAILY 09/02/20 09/18/20 History loratadine [Allergy Relief 10 mg PO DAILY 09/02/20 09/18/20 History (loratadine)] simvastatin 20 mg PO QPM 09/09/20 09/18/20 History tamsulosin 0.4 mg PO DAILY 09/09/20 09/18/20 History Allergies Allergy/AdvReac Type Severity Reaction Status Date / Time Penicillins Allergy Unknown Unknown Verified 09/18/20 01:49 shellfish derived Allergy Unknown Verified 09/18/20 01:49 Vital Signs Vital Signs - 24 hr 09/17/20 21:43 09/17/20 22:13 09/17/20 23:51 Temperature 96.7 F L 98.5 F Pulse Rate 76 77 70 Respiratory Rate 22 H 24 H 28 H Blood
[2020-09-18] MEDS: VITAMIN B COMPLEX/VIT C CAPSULE 1 EACH PO (09:19)
[2020-09-18] MEDS: LORATADINE 10 MG TABLET PO (09:19)
[2020-09-18] MEDS: CHOLECALCIFEROL 1,000 UNITS TABLET 2000 UNITS PO (09:19)
[2020-09-18] MEDS: allopurinoL 100 MG TABLET PO ×2 (09:19→17:22)
[2020-09-18] MEDS: TAMSULOSIN HCL 0.4 MG CAPSULE PO (09:20)
[2020-09-18] MEDS: FERROUS SULFATE 324 MG TABLET PO (09:20)
[2020-09-18 09:28] LABS: Mean Corpuscular HGB Conc 33.5 g/dl (32-36); Mean Corpuscular Volume 86.6 fl (80-100); Mean Platelet Volume 9.6 fl (7.4-10.4); Platelet Count Result 249 k/mm3 (150-375); Red Blood Count 2.17 M/mm3 (4.6-6.20); Red Cell Distribution Width 14.6 % (11.5-14.5)
[2020-09-18 09:32] LABS: Hematocrit 18.8 % (42.0-52.0); Hemoglobin 6.3 g/dL (14.0-18.0); White Blood Count 1.3 K/mm3 (4.5-10.0)
--- NOTE | 2020-09-18 10:55 | PC.NURSE ---
I spoke with Zehra from blood bank. The expiration date and time would not scan for this patient. Everything matched on the bag and on the computer. The expiration date matched, but stated that the expiration date did not scan. Zehra requested that since everything matches to override the expiration date and administer the blood. She stated she would put in a work order for IT since this is happening frequently.
[2020-09-18] MEDS: SIMVASTATIN 20 MG TABLET PO (17:22)
[2020-09-18 19:27] LABS: Hematocrit 24.5 % (42.0-52.0); Hemoglobin 8.2 g/dL (14.0-18.0); Mean Corpuscular HGB Conc 33.5 g/dl (32-36); Mean Corpuscular Hemoglobin 29.4 pg (26-34); Mean Corpuscular Volume 87.8 fl (80-100); Mean Platelet Volume 9.6 fl (7.4-10.4); Platelet Count Result 243 k/mm3 (150-375); Red Blood Count 2.79 M/mm3 (4.6-6.20); Red Cell Distribution Width 14.4 % (11.5-14.5)
[2020-09-18 19:32] LABS: White Blood Count 1.3 K/mm3 (4.5-10.0)
[2020-09-19 04:44] VITALS: BP 126/53; PULSE 62; RESP 20; TEMP 36.3; O2SAT 98
[2020-09-19 05:20] LABS: Basophils Percent Auto 0.8 % (0.2-1.2); Hematocrit 22.3 % (42.0-52.0); Hemoglobin 7.5 g/dL (14.0-18.0); Immature Granulocyte Absolute 0.01 K/mm3 (0.00-0.031); Immature Granulocyte Percent A 0.8 % (0-0.5); Lymphocytes Absolute Auto 0.55 K/mm3 (0.9-3.2); Mean Corpuscular HGB Conc 33.6 g/dl (32-36); Mean Corpuscular Volume 86.1 fl (80-100); Mean Platelet Volume 9.8 fl (7.4-10.4); Monocytes Percent Auto 3.1 % (2.6-8.5); Neutrophils Absolute Auto 0.7 K/mm3 (1.3-6.7); Neutrophils Percent Auto 52.3 % (45.5-73.1); Platelet Count Result 240 k/mm3 (150-375); Red Blood Count 2.59 M/mm3 (4.6-6.20); Red Cell Distribution Width 14.5 % (11.5-14.5)
[2020-09-19 05:35] LABS: Anion Gap 4 mmol/L (8-16); Blood Urea Nitrogen 21 mg/dL (9-20); Calcium 8.3 mg/dL (8.4-10.2); Carbon Dioxide 27 mmol/L (22-30); Chloride 108 mmol/L (98-107); Estimated CRCL calculation 73 ml/min; Estimated Glomerular Filt Rate > 60; Glucose 98 mg/dL (75-110); Potassium 4.5 mmol/L (3.4-5.0); Sodium 139 mmol/L (137-145)
[2020-09-19 05:44] LABS: White Blood Count 1.3 K/mm3 (4.5-10.0)
[2020-09-19] MEDS: VITAMIN B COMPLEX/VIT C CAPSULE 1 EACH PO (09:08)
[2020-09-19] MEDS: allopurinoL 100 MG TABLET PO (09:08)
[2020-09-19] MEDS: CHOLECALCIFEROL 1,000 UNITS TABLET 2000 UNITS PO (09:08)
[2020-09-19] MEDS: LORATADINE 10 MG TABLET PO (09:08)
[2020-09-19] MEDS: FERROUS SULFATE 324 MG TABLET PO (09:08)
[2020-09-19] MEDS: TAMSULOSIN HCL 0.4 MG CAPSULE PO (09:08)
[2020-09-19 09:11] VITALS: O2SAT 98
--- NOTE | 2020-09-19 09:51 | PM.DS ---
DS: Admitting Diagnosis Admitting Diagnosis Admitting Diagnosis: severe, symptomatic anemia DS: Discharge Diagnosis Discharge Diagnosis (1) Symptomatic anemia: Code(s): D64.9 - Anemia, unspecified Status: Acute Assessment and Plan: He received 2 units of packed red cells overnight 09/17- and 2 addiontional units 09/18 with improvement in symptoms Follow-up hemoglobin and hematocrit 09/18 AM revealed hemoglobin of 6.3 with hematocrit of 18.8, white cells 1.3, platelets 249 09/18 PM Hgb 8.2 09/19 AM hgb 7.5 F/u h/h in 4 days (2) Myelodysplasia (myelodysplastic syndrome): Code(s): D46.9 - Myelodysplastic syndrome, unspecified Status: Acute Assessment and Plan: Outpatient follow-up with oncology & Dr. Lara (3) Coronary artery disease: Qualifiers: Coronary Disease-Associated Artery/Lesion type: [place] artery [place] vs. transplanted heart: [place] heart Associated angina: with unspecified angina Qualified Code(s): I25.119 - Atherosclerotic heart disease of [place] coronary artery with unspecified angina pectoris Code(s): I25.10 - Atherosclerotic heart disease of [place] coronary artery without angina pectoris Status: Acute Assessment and Plan: Symptomatic when severely anemic, currently asymptomatic (4) CHF (congestive heart failure): Qualifiers: Heart failure type: unspecified Heart failure chronicity: chronic Qualified Code(s): I50.9 - Heart failure, unspecified Code(s): I50.9 - Heart failure, unspecified Status: Acute Assessment and Plan: Clinically stable (5) COPD (chronic obstructive pulmonary disease): Qualifiers: COPD type: unspecified COPD Qualified Code(s): J44.9 - Chronic obstructive pulmonary disease, unspecified Code(s): J44.9 - Chronic obstructive pulmonary disease, unspecified Status: Acute Assessment and Plan: Symptomatic when severely anemic, currently asymptomatic at rest (6) Afib: Qualifiers: Atrial fibrillation type: paroxysmal Qualified Code(s): I48.0 - Paroxysmal atrial fibrillation Code(s): I48.91 - Unspecified atrial fibrillation Status: Acute Assessment and Plan: Currently asymptomatic (7) HTN (hypertension): Qualifiers: Hypertension type: essential hypertension Qualified Code(s): I10 - Essential (primary) hypertension Code(s): I10 - Essential (primary) hypertension Status: Acute Assessment and Plan: Currently normotensive DS: Summary Hospital Course Reason for hospitalization: Chest discomfort and dyspnea on exertion Hospital Course: 70-year-old gentleman with recently diagnosed myelodysplastic syndrome and 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 He was found to have a hemoglobin is 4.7 and after transfusion of 4 units packed red cells hemoglobin was 7.5. Symptoms had resolved. He was tolerating his diet and wished to go home. He had some left shoulder discomfort on the morning of discharge that was reproducible with manipulation of the left shoulder. This was mild in nature and totally different than the chest discomfort for which she initially presented. Status at Discharge Functional status at discharge: uses cane/walker Overall status at discharge: patient is back to baseline Time Spent with Patient Time attestation: Total time spent providing and/or coordinating discharge services: Time spent: Greater than 30 minutes Exam Narrative: Exam Narrative: Morbidly obese elderly gentleman in no acute distress HEENT: PERRL, sclerae nonicteric, pharyngeal mucosa pink and intact NECK: No JVD CHEST: Clear to auscultation. Normal effort. HEART: NL S1/S2, regular, no murmur ABDOMEN: BS+, soft, nontender, no mass, no bruits EXTREMITIES: No cyanosis, edema, or clubbing NEUROLOGIC: CN intact and symmetric to inspection.
[2020-09-19] MEDS: DOCUSATE SODIUM 100 MG CAPSULE PO (10:06)
== END 2020-09-19 11:51 | disposition home or self-care (01) ==
LOC: ANHED 09-18 00:03 → ANH2MED 09-18 01:40
PROVIDERS: Admitting Provider Internal Medicine; Emergency Provider Emergency Medicine; PCP Emergency Medicine; Visit Provider Internal Medicine
DX: D46.9 Myelodysplastic syndrome, unspecified (principal); I25.119 Atherosclerotic heart disease of native coronary artery with unspecified angina pectoris; I50.9 Heart failure, unspecified; I11.0 Hypertensive heart disease with heart failure; J44.9 Chronic obstructive pulmonary disease, unspecified; I48.91 Unspecified atrial fibrillation; M25.512 Pain in left shoulder; Z87.891 Personal history of nicotine dependence
CPT/HCPCS: 36415; 36430; 71045; 80048; 80053; 84484; 85025; 85027; 86850; 86900; 86901; 86923; 93005; 96360; 96361; 97161; 97165; 99285; A9270; G0378; J7030; J7050; P9016

== ENCOUNTER 2020-09-24 11:56 | Outpatient (RCR) | payer OTHER, SELFPAY ==
[2020-09-24 12:28] LABS: Basophils Percent Auto 0.8 % (0.2-1.2); Lymphocytes Absolute Auto 0.45 K/mm3 (0.9-3.2); Lymphocytes Percent Auto 34.6 % (18.3-44.2); Mean Corpuscular HGB Conc 33.2 g/dl (32-36); Mean Corpuscular Hemoglobin 29.3 pg (26-34); Mean Corpuscular Volume 88.4 fl (80-100); Mean Platelet Volume 9.9 fl (7.4-10.4); Monocytes Percent Auto 3.1 % (2.6-8.5); Neutrophils Absolute Auto 0.8 K/mm3 (1.3-6.7); Neutrophils Percent Auto 61.5 % (45.5-73.1); Platelet Count Result 206 k/mm3 (150-375); Red Blood Count 2.25 M/mm3 (4.6-6.20); Red Cell Distribution Width 14.3 % (11.5-14.5)
[2020-09-24 13:40] LABS: White Blood Count 1.3 K/mm3 (4.5-10.0)
[2020-09-24 13:41] LABS: Hematocrit 19.9 % (42.0-52.0); Hemoglobin 6.6 g/dL (14.0-18.0)
[2020-09-24 13:42] LABS: Microcytosis 1+ (NORMAL); Ovalocytes 1+ (NORMAL); Platelet Estimate Adequate (Adequate)
--- NOTE | 2020-09-24 14:13 | PC.NURSE ---
Notified by lab registration that patient was here for a blood transfusion. Patient brought to [facility] room 1 via wheelchair. Patient noted to be visibly pale, short of breath, and stated he was feeling lightheaded and dizzy. VS: HR 66, BP 137/69, SP02 100% on room air. Nursing Lease Broker, Aminata, notified of patient's condition. Patient taken to ED 2 via wheelchair and was agreeable to plan of care. Report given at bedside to ED RN Lissy.
== END 2020-09-24 13:41 | disposition home or self-care (01) ==
LOC: ANHLAB 11:56
PROVIDERS: PCP Emergency Medicine; Visit Provider Emergency Medicine
DX: D64.9 Anemia, unspecified (principal)
CPT/HCPCS: 85025

== ENCOUNTER 2020-09-24 13:35 | Observation (INO) | payer OTHER, SELFPAY ==
[2020-09-24] VITALS (14 sets, daily range): BP systolic 108–154; BP diastolic 46–71; PULSE 61–66; RESP 16–25; TEMP 36.3–37; O2SAT 96–100; BMI 42.3
--- NOTE | 2020-09-24 13:39 | ECG_ITS ---
Measurements Intervals [place] Rate: 68 P: NH: 0 QRS: 47 QRSD: 96 T: 43 QT: 402 QTc: 428 Interpretive Statements SINUS RHYTHM WITH MARKED FIRST DEGREE AV BLOCK LOW QRS VOLTAGE IN PRECORDIAL LEADS BORDERLINE R WAVE PROGRESSION, ANTERIOR LEADS CONSIDER INFERIOR INFARCT, AGE INDETERMINATE BORDERLINE ST-T WAVE ABNORMALITY- ANTERIOR LEADS BASELINE ARTIFACT- I, III, AVR, AVL, AVF, V1-V6 ABNORMAL ECG Electronically Signed On 09-24-2020 15:08:11 CDT by Will Hernandez D.O.
--- NOTE | 2020-09-24 13:51 | ED.GENADULT ---
HPI - General Adult General Chief complaint: Recheck/Abnormal Lab/Rx Stated complaint: abn labs Time Seen by Provider: 09/24/20 13:40 Source: patient Mode of arrival: ambulatory Limitations: no limitations History of Present Illness HPI narrative: Patient is 70 years old white male referred to our emergency room from his family physician office to receive blood transfusion because he hemoglobin today is 6.6. Patient had history of myelodysplastic syndrome, last blood transfusion was 1 week ago. Patient is status post bone marrow biopsy 2 weeks ago. Currently patient complaining of progression of shortness of breath and general weakness. Patient denies any fever, chills, nausea, vomiting, chest pain, back pain or abdominal pain. Patient is not taking any blood thinners, denies vomiting blood or passing blood per rectum. Related Data Home Medications Medication Instructions Recorded Confirmed B-complex with vitamin C 1 tablet PO DAILY 06/30/19 09/18/20 cholecalciferol (vitamin D3) 50 2,000 unit PO DAILY 06/30/19 09/18/20 mcg (2,000 unit) tablet ferrous sulfate 324 mg PO DAILY 09/02/20 09/18/20 loratadine [Allergy Relief 10 mg PO DAILY 09/02/20 09/18/20 (loratadine)] tamsulosin 0.4 mg PO DAILY 09/09/20 09/18/20 Allergies Allergy/AdvReac Type Severity Reaction Status Date / Time Penicillins Allergy Unknown Unknown Verified 09/18/20 01:49 shellfish derived Allergy Unknown Verified 09/18/20 01:49 Review of Systems Review of Systems: Narrative: CONSTITUTIONAL: Denies fever, chills, or sweats. EYES: Denies visual changes, redness, or discharge. ENT: Denies rhinorrhea, congestion, sore throat, or otalgia. CARDIOVASCULAR: Denies chest pain, palpitations, or edema. RESPIRATORY: Denies cough or dyspnea. GASTROINTESTINAL: Denies abdominal pain, nausea, vomiting, or diarrhea. GENITOURINARY: Denies dysuria or hematuria. SKIN: Denies rash or itching. MUSCULOSKELETAL: Denies back pain, joint pain, or myalgia. NEUROLOGIC: Denies headache, numbness, or weakness. PSYCHIATRIC: Denies anxiety or depression. [facility] Past Medical History Medical History Afib BPH (benign prostatic hyperplasia) CHF (congestive heart failure) COPD (chronic obstructive pulmonary disease) Coronary artery disease HTN (hypertension) Myelodysplasia (myelodysplastic syndrome) Vitamin D deficiency disease Surgical History Surgical History History of coronary angioplasty with insertion of stent 1996 Hx of CABG approximately 2010 Family History Family History Sibling Diabetes mellitus Family history of cardiovascular disease Family history of sleep apnea Familial primary pulmonary hypertension Family history of chronic obstructive pulmonary disease Father Family history of cardiovascular disease, Onset Age: 65 Family history of coronary artery disease Mother Family history of malignant neoplasm, Onset Age: 72 Diabetes mellitus Family history of liver disease Social History Social History Smoking packs per day: 1 Smoking cigarettes per day: 20.0 Years smoked: 40 Smoking pack-years: 40.00 Smoking status: Former smoker Tobacco type: cigarettes Second hand tobacco smoke exposure: Yes Smoking end date: 06/25/07 Alcohol intake: current Substance use: current Substance use type: marijuana Other substance usage details: Years ago he used hallucinogens, mushrooms Gender identity (if verbalized by the patient): Male Spiritual care concerns: No Exam Narrative: Exam Narrative: General appearance: Well-developed, well-nourished Skin: Pale Head: Normocephalic, nontraumatic Eyes: Clear conjunctiva ENT: Oropharynx normal, ears normal, nose normal Neck: Supple, nontender Chest and respiratory: Airway patent, no
[2020-09-24] MEDS: diphenhydrAMINE HCl CAP 25 MG CAPSULE PO (14:35)
[2020-09-24] MEDS: SODIUM CHLORIDE 0.9% IV 250 ML 30 ML IV CONT (14:55)
[2020-09-24] MEDS: TUBING, BLOOD PLUM PUMP TUBING 1 EACH XX (14:55)
--- NOTE | 2020-09-24 15:02 | PC.NURSE ---
Blood transfusion initiated at 75ml/hr.
--- NOTE | 2020-09-24 15:10 | PC.NURSE ---
Infusion rate increased to 200ml/hr. Pt tolerating well. No suspected reaction.
[2020-09-24] MEDS: FUROSEMIDE INJ 40 MG/4 ML VIAL 20 MG IV PUSH ×2 (16:49→22:08)
--- NOTE | 2020-09-24 17:00 | PM.IMHP ---
H&P: HPI History of Present Illness Date/Time: 09/24/20 17:00 Chief Complaint: Needs blood transfusion. Narrative: This is a 70-year-old male who was fairly recently diagnosed with myelodysplastic syndrome who presented to the emergency department earlier today from the outpatient infusion center with reports that he is in need of a blood transfusion. 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 Since that time he is being followed by Dr. Lopez and is receiving Procrit injections as well as intermittent transfusions. His last blood transfusion was 1 week ago and he had follow-up labs today which showed hemoglobin of 6.6. Initially he was given and order for 2 units of packed red blood cells to be transfused as an outpatient however he was brought to the emergency department before receiving his infusions ?because he was having symptomatic anemia.? The patient admits that he has been more fatigued and will get short of breath with activity, occasionally lightheaded, but he denies syncope and near-syncope. He has not had chest pain or resting shortness of breath. No epistaxis, gingival bleeding, hematemesis, melena, hematochezia, or hematuria. Review of Systems Review of Systems: Narrative: Twelve systems were reviewed with pertinent positives and negatives as per HPI. No fever, chills, or sweats. No recent cold or flu symptoms. He denies chest pain pleuritic pain. No cough. Occasional heartburn. No nausea or vomiting. He denies diarrhea and constipation. Stools are occasionally a bit dark but he attributes that to iron supplementation, and these are unchanged. Except as documented, all other systems were reviewed and are negative. [facility] Past Medical History Medical History (Updated 09/24/20 @ 20:58 by Sandhya Hunt PA-C) Benign prostatic hyperplasia Chronic obstructive pulmonary disease Congestive heart failure Echo on 09/09/2020 showed normal left ventricular systolic function and grade 1 diastolic dysfunction. 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 Followed by Dr. Lopez. Obstructive sleep apnea Patient does not use CPAP. Osteoarthritis Paroxysmal atrial fibrillation Vitamin D deficiency disease Surgical History Surgical History (Updated 09/24/20 @ 20:55 by Sandhya Hunt PA-C) History of coronary angioplasty with insertion of stent (~1996) History of coronary artery bypass graft (~2010) Family History Family History Sibling Diabetes mellitus Family history of cardiovascular disease Family history of sleep apnea Familial primary pulmonary hypertension Family history of chronic obstructive pulmonary disease Father Family history of cardiovascular disease, Onset Age: 65 Family history of coronary artery disease Mother Family history of malignant neoplasm, Onset Age: 72 Diabetes mellitus Family history of liver disease Social History Social History (Updated 09/24/20 @ 20:56 by Sandhya Hunt PA-C) Social History: Surrogate decision maker: Aminata Arteaga, sister. Code status: Full code. Smoking packs per day: 1 Smoking cigarettes per day: 20.0 Years smoked: 40 Smoking pack-years: 40.00 Smoking status: Former smoker Tobacco type: cigarettes Second hand tobacco smoke exposure: No Smoking end date: 09/25/99 Alcohol intake: current Drinks per week: 1 Substance use: former Substance use type: marijuana Other substance usage details: Years ago he used hallucinogens, mushrooms. Additional living arrangements comments: The patient lives in [facility] [place]
--- NOTE | 2020-09-24 17:10 | ADMGEN ---
This patient, Shaheen Castañeda, was admitted to 3 [facility] Surg Room 316-01. Patient/family oriented to hospital policies and general routines including ID bracelet, bed and alarms, visiting hours, pain management, procedures, bathroom and other care routines, personal items, smoking policy, room service/diet, and visiting hours. Information on how to activate the Rapid Response Team has been discussed. Patient/Family are encouraged to report perceived risks to care and to ask questions if they do not understand what they are told or what they should do.
[2020-09-24] MEDS: SODIUM CHLORIDE 0.9% IV 250 ML 30 ML (18:19)
--- NOTE | 2020-09-24 21:39 | PC.NURSE ---
RN misread orders for units of blood products to be given, 3 ordered in the TAR, but physician to nurse communication saying only to give 2 and then recheck H&H. Blood received from lab and spiked, and ready to go with verification from 2nd RN Tammi. Clicked begin and went to start the blood and realized that I missed the physician to nurse communication. Blood Not Given to the patient. Immediately taken down and verified with Tammi CHERY, that the blood was not given. Will recheck H&H. JAMES Hunt, called at [phone] to notify of the waste of the blood product did not answer. Will call again.
[2020-09-24 21:47] LABS: Hematocrit 21.1 % (42.0-52.0); Hemoglobin 7.2 g/dL (14.0-18.0)
[2020-09-24] MEDS: SIMVASTATIN 20 MG TABLET PO (22:08)
[2020-09-25] VITALS (8 sets, daily range): BP systolic 110–127; BP diastolic 46–62; PULSE 61–64; RESP 18–20; TEMP 35.9–37.1; O2SAT 95–98
[2020-09-25 07:04] LABS: Hematocrit 23.3 % (42.0-52.0); Hemoglobin 7.9 g/dL (14.0-18.0); Mean Corpuscular HGB Conc 33.9 g/dl (32-36); Mean Corpuscular Hemoglobin 29.5 pg (26-34); Mean Corpuscular Volume 86.9 fl (80-100); Platelet Count Result 201 k/mm3 (150-375); Red Blood Count 2.68 M/mm3 (4.6-6.20); Red Cell Distribution Width 14.2 % (11.5-14.5)
[2020-09-25 07:07] LABS: White Blood Count 1.4 K/mm3 (4.5-10.0)
[2020-09-25 07:12] LABS: Alanine Aminotransferase 26 U/L (4-50); Albumin Level 3.8 g/dL (3.5-5.1); Alkaline Phosphatase 71 U/L (38-126); Anion Gap 4 mmol/L (8-16); Aspartate Amino Transferase 23 U/L (17-59); Bilirubin,Total 2.7 mg/dL (0.2-1.3); Blood Urea Nitrogen 22 mg/dL (9-20); Calcium 8.1 mg/dL (8.4-10.2); Carbon Dioxide 29 mmol/L (22-30); Chloride 106 mmol/L (98-107); Estimated CRCL calculation 61 ml/min; Estimated Glomerular Filt Rate > 60; Glucose 106 mg/dL (75-110); Magnesium 1.8 mg/dL (1.6-2.3); Potassium 4.2 mmol/L (3.4-5.0); Sodium 139 mmol/L (137-145)
[2020-09-25] MEDS: VITAMIN B COMPLEX/VIT C CAPSULE 1 EACH PO (08:50)
[2020-09-25] MEDS: TAMSULOSIN HCL 0.4 MG CAPSULE PO (08:50)
[2020-09-25] MEDS: allopurinoL 100 MG TABLET PO (08:50)
[2020-09-25] MEDS: CHOLECALCIFEROL 1,000 UNITS TABLET 2000 UNITS PO (08:51)
[2020-09-25] MEDS: LORATADINE 10 MG TABLET PO (08:51)
[2020-09-25] MEDS: FERROUS SULFATE 324 MG TABLET PO (08:51)
--- NOTE | 2020-09-25 11:15 | PM.DS ---
DS: Admitting Diagnosis Admitting Diagnosis Admitting Diagnosis: Symptomatic Anemia DS: Discharge Diagnosis Discharge Diagnosis (1) Symptomatic anemia: Code(s): D64.9 - Anemia, unspecified Status: Acute Assessment and Plan: An ongoing issue with the patient secondary to myelodysplastic syndrome. He was transfused 3 units packed red blood cells total during stay. Hgb up to 7.9 this morning. He feels better today; less fatigued and less SOB. He is comfortable with discharge with repeat CBC this afternoon. If stable, will discharge today with CBC to be done next week for monitoring Will need close follow-up with his career center advisor. Instructed him to contact Dr. Lopez's office Sunday, 09/27 for further instructions (2) Myelodysplastic syndrome: Code(s): D46.9 - Myelodysplastic syndrome, unspecified Status: Acute Assessment and Plan: Plan is as detailed above. Encouraged to call Dr. Lopez on Sunday, hopefully we can prevent readmissions for transfusions. (3) Congestive heart failure: Code(s): I50.9 - Heart failure, unspecified Status: Inactive Assessment and Plan: Diastolic dysfunction noted on recent echocardiogram. He appears euvolemic. (4) Benign prostatic hyperplasia: Code(s): N40.0 - Benign prostatic hyperplasia without lower urinary tract symptoms Status: Inactive Assessment and Plan: No acute issues. Continue tamsulosin. DS: Summary Hospital Course Reason for hospitalization: symptomatic anemia, myelodysplastic syndrome Hospital Course: Date of arrival: 09/24/20 Date of discharge: 09/25/20 Patient is a 70-year-old male who was fairly recently diagnosed with myelodysplastic syndrome who presented to the emergency department on 09/24 from the outpatient infusion center with reports that he is in need of a blood transfusion. While in the ED, he was found to have a Hgb of 6.6. He was transfused 2 u pRBC. There were reports that he was symptomatic prior to arrival. Patient admitted to the hospitalist service under this setting for further management/treatment. Please see H&P for further details. After admission, He receieved another unit of pRBC (3 units total during hospital visit). By the following day, his H&H was stable and his symptoms had improved. He had no signs/symptoms of acute blood loss. Plan was for him to follow up with Dr. Lopez in 1 week after discharge and to complete a CBC on 09/28. Patient agreeable and comfortable with plan for discharge. Patient hemodynamically stable and in improved condition for discharge on 09/25 Status at Discharge Overall status at discharge: patient is progressing back to baseline Time Spent with Patient Time attestation: Total time spent providing and/or coordinating discharge services: Time spent: Greater than 30 minutes Exam Narrative: Exam Narrative: General: Patient resting in semi-recumbent position in bed in no acute distress. Pallor appreciated on skin HEENT: Normocephalic, EOMI, oral mucosa moist, edentulous Cardiovascular: Rate and rhythm are regular. No notable murmur, rub, or gallop. Respiratory: Minimal crackles in b/l lung bases. Non-labored breathing. Abdomen: Soft, obese abdomen, non-tender, non-distended, bowel sounds present. Extremities: Peripheral pulses intact. No edema. NTTP b/l calves Neuro: No focal neurological deficits. Speech is clear. DS: Data Data Completed and Pending Labs on day of discharge: Laboratory Tests 09/25/20 06:26 09/25/20 06:26 Initial Vital Signs Temp Pulse Resp BP Pulse Ox 97.4 F L 66 25 H 127/53 L 100 09/24/20 13:42 09/24/20 13:42 09/24/20 13:42 09/24/20 13:42 09/24/20 13:42 Last Vital Signs Temp 96.6 F L 09/25/20 05:49 Pulse 63
[2020-09-25] MEDS: polyethylene glycoL 3350 17 GM POWD.PACK PO (11:53)
[2020-09-25 12:55] LABS: Hemoglobin 7.7 g/dL (14.0-18.0); Mean Corpuscular HGB Conc 33.5 g/dl (32-36); Mean Corpuscular Hemoglobin 29.1 pg (26-34); Mean Corpuscular Volume 86.8 fl (80-100); Mean Platelet Volume 9.7 fl (7.4-10.4); Platelet Count Result 188 k/mm3 (150-375); Red Blood Count 2.65 M/mm3 (4.6-6.20); Red Cell Distribution Width 14.2 % (11.5-14.5)
[2020-09-25 12:56] LABS: White Blood Count 1.2 K/mm3 (4.5-10.0)
== END 2020-09-25 15:10 | disposition home or self-care (01) ==
LOC: ANHED 14:02 → ANH3MEDSUR 16:10
PROVIDERS: Physician Assistant; Admitting Provider Internal Medicine; Emergency Provider Emergency Medicine; PCP Emergency Medicine; Visit Provider Internal Medicine
DX: D46.9 Myelodysplastic syndrome, unspecified (principal); I11.0 Hypertensive heart disease with heart failure; I50.9 Heart failure, unspecified; N40.0 Benign prostatic hyperplasia without lower urinary tract symptoms; R06.02 Shortness of breath; Z87.891 Personal history of nicotine dependence
CPT/HCPCS: 36415; 36430; 80053; 83735; 85014; 85018; 85025; 85027; 86850; 86900; 86901; 86923; 93005; 96361; 96365; 96375; 96376; 99285; A9270; G0378; J0131; J1940; J7050; P9016

== ENCOUNTER 2020-09-27 14:52 | Outpatient (CLI) | payer OTHER, SELFPAY ==
[2020-09-27 15:11] LABS: Hematocrit 22.6 % (42.0-52.0); Hemoglobin 7.4 g/dL (14.0-18.0); Lymphocytes Absolute Auto 0.49 K/mm3 (0.9-3.2); Lymphocytes Percent Auto 35.8 % (18.3-44.2); Mean Corpuscular HGB Conc 32.7 g/dl (32-36); Mean Corpuscular Hemoglobin 28.7 pg (26-34); Mean Corpuscular Volume 87.6 fl (80-100); Mean Platelet Volume 9.2 fl (7.4-10.4); Monocytes Percent Auto 2.9 % (2.6-8.5); Neutrophils Absolute Auto 0.8 K/mm3 (1.3-6.7); Neutrophils Percent Auto 61.3 % (45.5-73.1); Platelet Count Result 179 k/mm3 (150-375); Red Blood Count 2.58 M/mm3 (4.6-6.20); Red Cell Distribution Width 13.8 % (11.5-14.5); Reticulocyte Hemoglobin Conten 31.4 pg (28.2-35.7); Reticulocyte Percent 0.14 % (0.7-4.3)
[2020-09-27 15:15] LABS: Blood Urea Nitrogen 21 mg/dL (8-26); Carbon Dioxide 29 mmol/L (22-30); Chloride 105 mmol/L (98-109); Estimated Glomerular Filt Rate 60; Glucose 120 mg/dL (70-105); Potassium 4.2 mmol/L (3.5-4.9); Sodium 143 mmol/L (138-146)
[2020-09-27 15:16] LABS: White Blood Count 1.4 K/mm3 (4.5-10.0)
[2020-09-27 16:27] LABS: Iron 137 ug/dL (49-181)
[2020-09-27 16:38] LABS: Percent Iron Saturation 88 % (20-50)
[2020-09-27 18:04] LABS: Alanine Aminotransferase 29 U/L (4-50); Alkaline Phosphatase 71 U/L (38-126); Anion Gap 8 mmol/L (8-16); Aspartate Amino Transferase 19 U/L (17-59); Bilirubin,Total 1.4 mg/dL (0.2-1.3); Blood Urea Nitrogen 22 mg/dL (9-20); Calcium 8.8 mg/dL (8.4-10.2); Carbon Dioxide 27 mmol/L (22-30); Chloride 107 mmol/L (98-107); Estimated CRCL calculation 61 ml/min; Estimated Glomerular Filt Rate > 60; Glucose 123 mg/dL (75-110); Lactate Dehydrogenase 267 U/L (313-618); Potassium 4.1 mmol/L (3.4-5.0); Sodium 142 mmol/L (137-145)
[2020-09-27 19:37] LABS: Folic Acid 11.1 ng/mL (2.76->20); Vitamin B12 > 1000.0 pg/mL (239-931)
== END 2020-09-27 14:53 | disposition home or self-care (01) ==
LOC: ANHLAB 14:53
PROVIDERS: PCP Emergency Medicine; Visit Provider Internal Medicine Hematology & Oncology
DX: D64.9 Anemia, unspecified (principal)
CPT/HCPCS: 36415; 80048; 80053; 82607; 82728; 82746; 83540; 83550; 83615; 85025; 85046

== ENCOUNTER 2020-10-10 09:43 | Inpatient (IN) | payer OTHER, SELFPAY ==
[2020-10-10] VITALS (20 sets, daily range): BP systolic 103–130; BP diastolic 39–68; PULSE 53–77; RESP 22–40; TEMP 36.2–37.4; O2SAT 96–100; BMI 41.9
--- NOTE | ~2020-10-10 | XR_ITS ---
EXAMINATION: XR chest 1V portable DATE: 10/12/2020 09:07 INDICATION: Shortness of breath. TECHNIQUE: A single frontal view of the chest was obtained on 2 radiographs. COMPARISON: Chest 2 views 10/10/2020, CT abdomen and pelvis 10/10/2020 FINDINGS: The patient is rotated to his left. There are airspace opacities in the lower lung zones, l eft worse than right. No pleural effusion or pneumothorax. Cardiomegaly is noted. Median sternotomy w ires and mediastinal surgical clips are seen, likely from prior coronary artery bypass grafting. Ther e is a right internal jugular port with tip in superior vena cava. IMPRESSION: 1. Airspace opacities in the lower lung zones with worsening on the left, consistent with atelectasis versus pneumonia. 2. Cardiomegaly. Reviewed, dictated and finalized at location B. IMPRESSION: 1. Airspace opacities in the lower lung zones with worsening on the left, consi stent with atelectasis versus pneumonia. 2. Cardiomegaly.
--- NOTE | ~2020-10-10 | US_ITS ---
EXAMINATION: US renal BI DATE: 10/11/2020 11:55 INDICATION: Acute kidney injury. TECHNIQUE: Multiple ultrasound grayscale images of the kidneys were obtained. COMPARISON: CT abdomen and pelvis 10/10/2020 FINDINGS: The right kidney measures 10.6 x 5.3 x 6.6 cm. The left kidney measures 9.9 x 4.5 x 4.2 cm. The kidne ys demonstrate normal parenchymal echogenicity. There is cortical thinning of left kidney. There are cysts in left kidney measuring up to 2.8 cm. There is no hydronephrosis. The bladder is decompressed by a Shaw catheter. IMPRESSION: 1. Mild atrophy of left kidney. No hydronephrosis. Reviewed, dictated and finalized at location B.
--- NOTE | ~2020-10-10 | CT_ITS ---
EXAMINATION: CT brain wo con DATE: 10/10/2020 12:57 INDICATION: Confusion TECHNIQUE: Computed tomography (CT) of the head was performed without intravenous contrast. Sagittal and coronal reconstructions were performed. The mA was adjusted according to patient size. Iterative reconstruction technique was employed. The dose-length product was 605.33 mGy-cm. COMPARISON: None FINDINGS: Encephalomalacia in the left occipital lobe consistent with chronic infarct. No acute intracranial he morrhage, acute infarction or abnormal extra axial fluid collection. There is moderate scattered whit e matter hypoattenuation consistent with chronic small vessel ischemic disease. There is mild ex vacu o dilation at the occipital horn of the left lateral ventricle. Ventricles are otherwise normal and s ymmetric. No mass/mass effect. Small mucous retention cyst in the right maxillary sinus. The orbits a nd mastoid air cells are normal. IMPRESSION: 1. 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 No acute intracranial process. 2. Moderate scattered white matter hypoattenuation consistent with chronic small vessel ischemic dise ase. Reviewed, dictated and finalized at location A. IMPRESSION: 1. 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 No acute intracranial process. 2. Moderate scattered white matter hypoattenuation consistent with chronic smal l vessel ischemic disease.
--- NOTE | ~2020-10-10 | XR_ITS ---
EXAMINATION: XR chest 2V DATE: 10/10/2020 11:37 INDICATION: Shortness of breath and weakness TECHNIQUE: frontal and lateral views of the chest were obtained. COMPARISON: Chest radiograph dated 09/17/2020 FINDINGS: Right internal jugular central venous port catheter with distal tip in the midsuperior vena cava. Mil d elevation of the left hemidiaphragm. Mild bibasilar opacities. No pleural effusion or pneumothorax. Cardiomegaly. Median sternotomy wires and mediastinal surgical clips are seen, likely from prior cor onary artery bypass grafting. Moderate bilateral glenohumeral osteoarthritis. IMPRESSION: 1. Mild bibasilar opacities which could represent atelectasis, pulmonary edema or pneumonia. 2. Cardiomegaly. Reviewed, dictated and finalized at location A.
--- NOTE | ~2020-10-10 | US_ITS ---
EXAMINATION: US venous doppler [facility] DATE: 10/11/2020 11:54 INDICATION: Lower limb edema. TECHNIQUE: Grayscale ultrasound images without and with compression and Doppler ultrasound images of the bilateral lower extremity veins were obtained. COMPARISON: Ultrasound 12/05/2017 FINDINGS: The visualized portions of right common femoral vein, profunda (deep) femoral vein, femoral vein, pop liteal vein, peroneal veins, posterior tibial veins, and greater saphenous vein outflow are patent. The visualized portions of left common femoral vein, profunda femoral vein, femoral vein, popliteal v ein, peroneal veins, posterior tibial veins, and greater saphenous vein outflow are patent. IMPRESSION: 1. No deep venous thrombosis. Reviewed, dictated and finalized at location B.
--- NOTE | ~2020-10-10 | CT_ITS ---
EXAMINATION: CT abdomen pelvis wo con DATE: 10/10/2020 23:57 INDICATION: Abdominal pain, diarrhea TECHNIQUE: Computed tomography (CT) of the abdomen and pelvis was performed without intravenous contr ast. Automated exposure control and iterative reconstruction technique were employed. Exam dose: 143 3.36 mGy-cm total exam DLP. COMPARISON: None. FINDINGS: Bilateral lower lobe infiltrate and/atelectasis. Status post sternotomy. Cardiomegaly. Coronary artery calcification. No pericardial or pleural effusion. Approximately 5 mm gallstone is noted in the dependent aspect of the gallbladder lumen. No pericholec ystic fluid or fat stranding. No hepatic space-occupying mass lesion. No bile duct or pancreatic duct dilatation. No pancreatic mas s lesion or calcification. There is splenomegaly. The spleen measures up to 18.7 cm vertical dimension. Normal morphology of the adrenal glands. Bilateral renal atrophy, left greater than right. Bilateral nonspecific perinephric stranding. Bilate ral nonobstructive nephrolithiasis. No ureteral calculus or hydroureteronephrosis. Up to approximately 1.6 cm left renal cortical cysts and approximately 2.7 cm exophytic anterior prob able left renal cyst. The urinary bladder is unremarkable. Moderate prostate enlargement. There is atherosclerotic calcification of the abdominal aorta and origins of the celiac, superior mes enteric and renal arteries as well as bilateral iliac and femoral artery calcifications. No abdominal aortic aneurysm. No intraperitoneal or retroperitoneal or pelvic mass lesion or adenopathy or ascites. There is thickening of the wall of the distal esophagus which may represent esophagitis. Recommend cl inical correlation and perhaps endoscopic correlation as clinically appropriate. Small sliding hiatal hernia. Normal appendix. There are some fluid levels in the colon, which is abnormal in the absence of any enemas. No bowel ob struction, bowel wall thickening, pneumatosis or intraperitoneal free air is evident. Diffuse idiopathic skeletal hyperostosis of the thoracic spine. Moderate degenerative change of the l umbar spine. Bilateral hip osteoarthritis. No suspicious osteolytic or osteoblastic lesions are noted. IMPRESSION: Colonic air fluid levels, consistent with clinical presentation of diarrhea; no bowel ob struction Normal appendix Nonspecific thickening of the distal esophageal wall Small sliding hiatal hernia Bilateral lower lobe infiltrate and/atelectasis Cardiomegaly, coronary artery calcification Cholelithiasis Splenomegaly Bilateral renal atrophy Bilateral nonobstructive nephrolithiasis Left renal cyst Reviewed, dictated and finalized at Location A. Reviewed, dictated and finalized at location A. IMPRESSION: Colonic air fluid levels, consistent with clinical presentation of diarrhea; no bowel obstruction Normal appendix Nonspecific thickening of the distal esophageal wall Small sliding hiatal hernia Bilateral lower lobe infiltrate and/atelectasis Cardiomegaly, coronary artery calcification Cholelithiasis Splenomegaly Bilateral renal atrophy Bilateral nonobstructive nephrolithiasis Left renal cyst
--- NOTE | ~2020-10-10 | CT_ITS ---
EXAMINATION: CT brain wo con DATE: 10/14/2020 13:47 INDICATION: Encephalopathy. TECHNIQUE: Computed tomography (CT) of the head was performed without intravenous contrast. The mA wa s adjusted according to patient size. Iterative reconstruction technique was employed. The dose-lengt h product was 605.33 mGy-cm. COMPARISON: Head CT 10/10/2020 FINDINGS: There are old infarcts in left occipital lobe. There are scattered areas of low attenuation in the cerebral white matter. There is no intracranial hemorrhage, acute infarction, or abnormal int racranial mass lesion. There is ex vacuo dilatation of occipital horn of left lateral ventricle. The orbits are normal. There is mild mucosal thickening in the paranasal sinuses. The mastoid air cells a re normal. IMPRESSION: 1. 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 2. Stable moderate nonspecific cerebral white matter disease, which likely represents chronic small v essel ischemic disease. Reviewed, dictated and finalized at location B. IMPRESSION: 1. 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 2. Stable moderate nonspecific cerebral white matter disease, which likely repr esents chronic small vessel ischemic disease.
--- NOTE | ~2020-10-10 | US_ITS ---
EXAMINATION: US abdomen limited DATE: 10/12/2020 12:00 INDICATION: Right upper quadrant abdominal pain. Abnormal liver function tests. TECHNIQUE: Multiple grayscale and Doppler ultrasound images of the abdomen were obtained. COMPARISON: CT abdomen and pelvis 10/10/2020 FINDINGS: The visualized portions of the head and body of the pancreas are normal. There is diffuse h epatic steatosis. The gallbladder is normal in size and contains a gallstone. No gallbladder wall thi ckening. The common duct is normal and measures 6 mm. IMPRESSION: 1. Diffuse hepatic steatosis. 2. Cholelithiasis. No evidence of acute cholecystitis. Reviewed, dictated and finalized at location B.
--- NOTE | 2020-10-10 10:44 | ED.NAVMDI ---
HPI - Nausea/Vomiting/Diarrhea General Chief complaint: Nausea/Vomiting/Diarrhea Stated complaint: WEAKNESS,N,V Time Seen by Provider: 10/10/20 10:02 Source: patient Mode of arrival: EMS Limitations: no limitations History of Present Illness HPI Narrative: Patient is a 70-year-old male who presents complaining of nausea, vomiting and diarrhea starting last p.m. He reports that emesis is bile like and diarrhea is brown and watery . He reports incontinence this am. Patient reported to EMS intermittent upper abdominal pain, denies abdominal pain to this provider. He denies chest pain. Reports mild shortness of breath. Patient reports having Port-A-Cath placed last week for chemo and chemo last week. Patient has a history of myelodysplastic syndrome and has had multiple ED visits in the past. Patient appears pale and weak, confused at times. He denies pain. MD elicited complaint: nausea, vomiting and diarrhea Related Data Home Medications Medication Instructions Recorded Confirmed B-complex with vitamin C 1 tablet PO DAILY 06/30/19 09/24/20 cholecalciferol (vitamin D3) 50 2,000 unit PO DAILY 06/30/19 09/24/20 mcg (2,000 unit) tablet ferrous sulfate 324 mg PO DAILY 09/02/20 09/24/20 loratadine [Allergy Relief 10 mg PO DAILY 09/02/20 09/24/20 (loratadine)] tamsulosin 0.4 mg PO DAILY 09/09/20 09/24/20 glucosamine sulfate [Glucosamine] 500 mg PO DAILY 09/24/20 09/24/20 Allergies Allergy/AdvReac Type Severity Reaction Status Date / Time Penicillins Allergy Unknown Unknown Verified 10/10/20 09:54 shellfish derived Allergy Unknown Verified 10/10/20 09:54 Review of Systems Review of Systems: Narrative: CONSTITUTIONAL: Denies fever, chills, or sweats. Reports generalized weakness. EYES: Denies visual changes, redness, or discharge. ENT: Denies rhinorrhea, congestion, sore throat, or otalgia. CARDIOVASCULAR: Denies chest pain, palpitations, or edema. RESPIRATORY: Denies cough or dyspnea. GASTROINTESTINAL: Reports abdominal pain, nausea, vomiting, or diarrhea. GENITOURINARY: Denies dysuria or hematuria. SKIN: Denies rash or itching. MUSCULOSKELETAL: Denies back pain, joint pain, or myalgia. NEUROLOGIC: Denies headache, numbness, dizziness, or weakness. PSYCHIATRIC: Denies anxiety or depression. [facility] Past Medical History Medical History Benign prostatic hyperplasia Chronic obstructive pulmonary disease Congestive heart failure Echo on 09/09/2020 showed normal left ventricular systolic function and grade 1 diastolic dysfunction. 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 Followed by Dr. Lopez. Obstructive sleep apnea Patient does not use CPAP. Osteoarthritis Paroxysmal atrial fibrillation Vitamin D deficiency disease Surgical History Surgical History History of coronary angioplasty with insertion of stent (~1996) History of coronary artery bypass graft (~2010) Family History Family History Sibling Diabetes mellitus Family history of cardiovascular disease Family history of sleep apnea Familial primary pulmonary hypertension Family history of chronic obstructive pulmonary disease Father Family history of cardiovascular disease, Onset Age: 65 Family history of coronary artery disease Mother Family history of malignant neoplasm, Onset Age: 72 Diabetes mellitus Family history of liver disease Social History Social History Social History: Surrogate decision maker: Aminata Arteaga, sister. Code status: Full code. Smoking packs per day: 1 Smoking cigarettes per day: 20.0 Years smoked: 40
[2020-10-10 11:05] LABS: Alanine Aminotransferase 40 U/L (4-50); Albumin Level 3.6 g/dL (3.5-5.1); Alkaline Phosphatase 80 U/L (38-126); Anion Gap 7 mmol/L (8-16); Aspartate Amino Transferase 25 U/L (17-59); Bilirubin,Total 1.9 mg/dL (0.2-1.3); Blood Urea Nitrogen 23 mg/dL (9-20); Calcium 8.4 mg/dL (8.4-10.2); Carbon Dioxide 26 mmol/L (22-30); Chloride 110 mmol/L (98-107); Estimated Glomerular Filt Rate 50; Glucose 133 mg/dL (75-110); Lipase 11 U/L (23-300); Potassium 3.4 mmol/L (3.4-5.0); Sodium 143 mmol/L (137-145)
[2020-10-10 11:17] LABS: Immature Granulocyte Absolute 0.01 K/mm3 (0.00-0.031); Immature Granulocyte Percent A 1.1 % (0-0.5); Lymphocytes Absolute Auto 0.32 K/mm3 (0.9-3.2); Lymphocytes Percent Auto 35.6 % (18.3-44.2); Mean Corpuscular HGB Conc 32.8 g/dl (32-36); Mean Corpuscular Hemoglobin 28.5 pg (26-34); Mean Platelet Volume 10.9 fl (7.4-10.4); Monocytes Percent Auto 3.3 % (2.6-8.5); Neutrophils Absolute Auto 0.5 K/mm3 (1.3-6.7); Platelet Count Result 99 k/mm3 (150-375); Red Blood Count 2.07 M/mm3 (4.6-6.20); Red Cell Distribution Width 13.8 % (11.5-14.5)
[2020-10-10 11:59] LABS: Hemoglobin 5.9 g/dL (14.0-18.0); White Blood Count 0.9 K/mm3 (4.5-10.0)
[2020-10-10 12:02] LABS: Platelet Estimate Adequate (Adequate)
[2020-10-10 12:03] LABS: Microcytosis 3+ (NORMAL); Rouleaux 1+ (NORMAL)
[2020-10-10 12:07] LABS: Troponin I < 0.012 ng/mL (0.000-0.034)
[2020-10-10 12:14] LABS: CRP 13.8 mg/dL (<1.0)
[2020-10-10 12:26] LABS: Lactic Acid Reflex 1.5 mmol/L (0.7-2.1)
[2020-10-10 12:31] LABS: Add Urine Microscopic? YES; Appearance Urine Cloudy (Clear); Bacteria Urine Trace /hpf; Bilirubin Urine Negative (Negative); Blood Urine Negative (Negative); Color Urine Amber (Yellow); Glucose Urine UA Negative (Negative); Ketones Urine Negative (Negative); Leukocyte Esterase Ur Negative LEU/UL (Negative); Mucus Urine Rare /lpf; Nitrate Urine Negative (Negative); Protein Urine 1+ mg/dL (Negative); RBC Urine 0-2 /hpf (0-2); Specific Grav Ur 1.019 (1.001-1.035); WBC Urine 0-3 /hpf
[2020-10-10 12:35] LABS: INR 1.4; Prothrombin Time 18.1 Seconds (11.1-14.7)
[2020-10-10 12:36] LABS: Partial Thromboplastin Time 63.8 SECONDS (22.3-36.8)
[2020-10-10] MEDS: ONDANSETRON INJ 4 MG/2 ML VIAL IV PUSH (13:41)
--- NOTE | 2020-10-10 13:41 | PC.NURSE ---
Pt had emesis all over room, RN cleaned emesis and received order for Zofran. Administered med.
--- NOTE | 2020-10-10 14:56 | ADMGEN ---
This patient, Shaheen Castañeda, was admitted to Medical Room 247-. Patient/family oriented to hospital policies and general routines including ID bracelet, bed and alarms, visiting hours, pain management, procedures, bathroom and other care routines, personal items, smoking policy, room service/diet, and visiting hours. Information on how to activate the Rapid Response Team has been discussed. Patient/Family are encouraged to report perceived risks to care and to ask questions if they do not understand what they are told or what they should do.
[2020-10-10] MEDS: AZTREONAM 2 GM in DEXTROSE 5% 100 ML 200 ML IVPB (15:42)
--- NOTE | 2020-10-10 16:30 | PM.IMHP ---
H&P: HPI History of Present Illness Date/Time: 10/10/20 16:30 Chief Complaint: Weakness, nausea, vomiting, and diarrhea. Narrative: This is a 70-year-old male who was fairly recently diagnosed with myelodysplastic syndrome, coronary artery disease, congestive heart failure, benign prostatic hyperplasia, hypertension, paroxysmal atrial fibrillation, and sleep apnea who presented to the emergency department earlier today via EMS from home with complaints of weakness, nausea, vomiting, and diarrhea. 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 Since that time he has been followed by Dr. Lopez (hematology/oncology) and is receiving Procrit injections as well as intermittent transfusions. More recently had a Port-A-Cath inserted at [facility] and it sounds as though he had his 1st round of chemotherapy about a week ago. Over the last several days he has not felt well with progressive weakness, nausea, vomiting, and diarrhea. He has also had non distinct, intermittent and self-limiting upper abdominal discomfort that he has a difficult time describing. Unfortunately he is not the greatest historian and seems a bit confused at this time however is alert and oriented. I admitted the patient to the hospital a couple of weeks ago and he was not at all confused at that time. In any event he was noted to be profoundly anemic and neutropenic on labs drawn on arrival to the emergency department and he is being admitted for blood transfusion. Dr. Lopez (his care worker/oncologist) also requests that he be started on broad-spectrum antibiotics pending cultures. At the time my evaluation the patient is frustrated due to his mild confusion tells me ?I am not short of breath but I am short of brains.? He has not had fever, chills, or sweats. No headache or neck ache. He denies cold and flu symptoms. No sore throat or rash. He is not having any chest pain or significant shortness of breath. Denies cough. No hematemesis, melena, or hematochezia. He has not noticed a change in urine output and denies dysuria. Review of Systems Review of Systems: Narrative: Twelve systems are reviewed with pertinent positives and negatives as per HPI. No known exposure to those positive for COVID-19. He denies lightheadedness and dizziness. No syncope or near syncope. Reports profound weakness, but no focal findings. Denies paresthesias. No chest pain or pleuritic pain. He has mild lower extremity edema which is unchanged. No history of venous thromboembolism. Except as documented, all other systems were reviewed and are negative. [facility] Past Medical History Medical History Benign prostatic hyperplasia Cerebrovascular accident Old left occipital lobe infarct noted on brain CT on 10/10/2020. Chronic obstructive pulmonary disease Congestive heart failure Echo on 09/09/2020 showed normal left ventricular systolic function and grade 1 diastolic dysfunction. Coronary artery disease Status post CABG in 2010. 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 Followed by Dr. Lopez. Obstructive sleep apnea Patient does not use CPAP. Osteoarthritis Paroxysmal atrial fibrillation Vitamin D deficiency disease Surgical History Surgical History History of coronary angioplasty with insertion of stent (~1996) History of coronary artery bypass graft (~2010) Family History Family History Sibling Diabetes mellitus Family history of cardiovascular disease
--- NOTE | 2020-10-10 16:59 | PC.NURSE ---
call to pt's sister per his request to review home med list with her, call placed to Aminata and confirmed meds and dosages, sister was uncertain about Flomax and Simvastatin, others confirmed in chart
[2020-10-10] MEDS: FILGRASTIM 480 MCG/1.6 ML VIAL SUB-Q (18:42)
[2020-10-10 19:19] LABS: Alveolar/Arterial O2 Gradient 55.8 mmHg; Base Excess ABG 0.6 mEq/l (+/-2.0); Carboxyhemoglobin 0.3 % THb (0-2.0); Fractional Inspired Oxygen 28 %; HCO3 ABG 24.5 mEq/l (22.0-26.0); Methemoglobin ABG 0.4 %THb (0-1.5); Oxygen Content ABG 9.2 %vol (16.0-22.0); Oxygen Saturation ABG 97.9 % (95.0-100.0); Oxyhemoglobin 95.5 % THb (90.0-100.0); PCO2 ABG 35.8 mmHg (35.0-45.0); PO2 ABG 101.6 mmHg (80.0-100.0); PO2 FiO2 Ratio Arterial Blood 3.63 %; Reduced Hemoglobin 3.8 %THb (0-5.0); pH ABG 7.453 (7.350-7.450)
--- NOTE | 2020-10-10 19:20 | ECG_ITS ---
Measurements Intervals [place] Rate: 71 P: 84 PA: 298 QRS: 55 QRSD: 100 T: 123 QT: 387 QTc: 421 Interpretive Statements SINUS RHYTHM WITH FIRST DEGREE AV BLOCK ATRIAL PREMATURE COMPLEXES DELAYED PRECORDIAL R/S TRANSITION LOW QRS VOLTAGE IN PRECORDIAL LEADS CONSIDER INFERIOR INFARCT, AGE INDETERMINATE BORDERLINE ST-T WAVE ABNORMALITY- ANTEROLAT/HIGH LAT LEADS BASELINE ARTIFACT- V1-V2 ABNORMAL ECG Electronically Signed On 10-10-2020 22:00:57 CDT by Will Hernandez D.O.
[2020-10-10 19:22] LABS: Device NASAL CANNULA; Modified Allen's Test Pass; Site Drawn RIGHT RADIAL; Total Hemoglobin 6.7 g/dL (12.0-18.0)
--- NOTE | 2020-10-10 19:45 | PC.NURSE ---
Sandhya Hunt notified of pt c/o chest pressure and apparent worsening dyspnea. Orders received.
[2020-10-10 19:53] LABS: Immature Platelet Fraction Pct 6.7 % (0.9-11.2); Mean Corpuscular HGB Conc 33.3 g/dl (32-36); Mean Corpuscular Hemoglobin 28.8 pg (26-34); Mean Corpuscular Volume 86.3 fl (80-100); Mean Platelet Volume 10.4 fl (7.4-10.4); Platelet Count Result 95 k/mm3 (150-375); Red Blood Count 2.05 M/mm3 (4.6-6.20); Red Cell Distribution Width 13.6 % (11.5-14.5)
[2020-10-10 19:58] LABS: White Blood Count 0.8 K/mm3 (4.5-10.0)
[2020-10-10 19:59] LABS: Hemoglobin 5.9 g/dL (14.0-18.0)
[2020-10-10 20:00] LABS: Hematocrit 17.7 % (42.0-52.0)
--- NOTE | 2020-10-10 20:10 | ECG_ITS ---
Measurements Intervals [place] Rate: 72 P: 56 NM: 289 QRS: 54 QRSD: 101 T: 124 QT: 394 QTc: 432 Interpretive Statements SINUS RHYTHM WITH FIRST DEGREE AV BLOCK ATRIAL PREMATURE COMPLEXES DELAYED PRECORDIAL R/S TRANSITION LOW QRS VOLTAGE IN PRECORDIAL LEADS CONSIDER INFERIOR INFARCT, AGE INDETERMINATE BORDERLINE ST-T WAVE ABNORMALITY- ANTEROLAT/HIGH LAT LEADS BASELINE ARTIFACT- V4 ABNORMAL ECG Electronically Signed On 10-10-2020 22:01:46 CDT by Will Hernandez D.O.
[2020-10-10 20:13] LABS: Troponin I < 0.012 ng/mL (0.000-0.034)
[2020-10-10 20:43] LABS: IFOB Positive Control Positive; Immunochemical Fecal Occult Bl Negative (N)
--- NOTE | 2020-10-10 21:00 | PC.NURSE ---
Blood transfusion restarted at 2029. is aware blood currently running at 70ml with 2 hours remaining of 4 hour limit. Transfusion rate will be increased as patient is able to tolerate. Pt has been educated on transfusion speed and fluid overload/pulm edema, and verbalized that he will call if dyspnea or chest pressure worsens.
[2020-10-10 22:03] LABS: NT Pro B Type Natriuretic Pept 6380 PG/ML (5-100)
[2020-10-10 22:45] LABS: Troponin I < 0.012 ng/mL (0.000-0.034)
[2020-10-11] VITALS (13 sets, daily range): BP systolic 102–130; BP diastolic 44–56; PULSE 68–88; RESP 18–34; TEMP 36.1–36.9; O2SAT 92–99
[2020-10-11 00:36] LABS: Hematocrit 20.7 % (42.0-52.0); Hemoglobin 6.8 g/dL (14.0-18.0)
[2020-10-11] MEDS: FUROSEMIDE INJ 40 MG/4 ML VIAL 20 MG IV PUSH (01:00)
[2020-10-11] MEDS: SODIUM CHLORIDE 0.9% IV 250 ML 30 ML IV CONT (01:58)
[2020-10-11 02:06] LABS: Troponin I < 0.012 ng/mL (0.000-0.034)
--- NOTE | 2020-10-11 02:08 | PC.NURSE ---
3rd unit of blood now transfusing after incomplete transfusion of 2nd unit. Pt still has c/o dyspnea and chest pain/pressure which he states has not worsened and only minimally improved since first onset at the start of 2nd unit transfusion. Dr Nolen is aware of persisting chest pain. Pt has been given one 20mg dose of IV lasix prior to 3rd unit transfusion and verbalized he will notify staff immediately if dyspnea or chest pain/pressure worsens.
[2020-10-11 07:02] LABS: Alanine Aminotransferase 35 U/L (4-50); Albumin Level 3.2 g/dL (3.5-5.1); Alkaline Phosphatase 67 U/L (38-126); Anion Gap 7 mmol/L (8-16); Aspartate Amino Transferase 19 U/L (17-59); Bilirubin,Total 3.1 mg/dL (0.2-1.3); Blood Urea Nitrogen 29 mg/dL (9-20); Carbon Dioxide 23 mmol/L (22-30); Chloride 112 mmol/L (98-107); Estimated CRCL calculation 36 ml/min; Estimated Glomerular Filt Rate 35; Glucose 124 mg/dL (75-110); Magnesium 1.4 mg/dL (1.6-2.3); Potassium 3.2 mmol/L (3.4-5.0); Sodium 142 mmol/L (137-145)
[2020-10-11 07:17] LABS: Basophils Percent Auto 1.2 % (0.2-1.2); Hematocrit 22.4 % (42.0-52.0); Hemoglobin 7.6 g/dL (14.0-18.0); Immature Granulocyte Absolute 0.07 K/mm3 (0.00-0.031); Immature Granulocyte Percent A 8.4 % (0-0.5); Immature Platelet Fraction Pct 7.5 % (0.9-11.2); Lymphocytes Absolute Auto 0.25 K/mm3 (0.9-3.2); Lymphocytes Percent Auto 30.1 % (18.3-44.2); Mean Corpuscular HGB Conc 33.9 g/dl (32-36); Mean Corpuscular Hemoglobin 29.6 pg (26-34); Mean Corpuscular Volume 87.2 fl (80-100); Monocytes Absolute Auto 0.1 K/mm3 (0.1-0.6); Neutrophils Absolute Auto 0.5 K/mm3 (1.3-6.7); Neutrophils Percent Auto 54.3 % (45.5-73.1); Platelet Count Result 84 k/mm3 (150-375); Red Blood Count 2.57 M/mm3 (4.6-6.20); Red Cell Distribution Width 14.1 % (11.5-14.5)
[2020-10-11 07:51] LABS: Hypochromasia 2+ (NORMAL); Microcytosis 1+ (NORMAL); Platelet Estimate Decreased (Adequate); Rouleaux 1+ (NORMAL); White Blood Count 0.8 K/mm3 (4.5-10.0)
[2020-10-11] MEDS: FILGRASTIM 480 MCG/1.6 ML VIAL SUB-Q (08:52)
[2020-10-11] MEDS: POTASSIUM CHLORIDE 20 MEQ TABLET 40 MEQ PO (08:53)
[2020-10-11] MEDS: MAGNESIUM SULFATE 3GM/D5W100ML 3 GM/100 ML BAG IVPB (08:53)
[2020-10-11] MEDS: allopurinoL 300 MG TABLET PO (08:54)
[2020-10-11] MEDS: TAMSULOSIN HCL 0.4 MG CAPSULE PO (08:54)
[2020-10-11] MEDS: valACYclovir HCL 500 MG TABLET PO (08:54)
[2020-10-11] MEDS: LORATADINE 10 MG TABLET PO (08:54)
--- NOTE | 2020-10-11 10:00 | PM.IMPN ---
Progress Note: A&P Assessment and Plan (1) Abdominal pain: Code(s): R10.9 - Unspecified abdominal pain Status: Acute Assessment and Plan: Patient reports vague upper abdominal discomfort without significant findings on exam. CT of the abdomen and pelvis showed Colonic air fluid levels, consistent with clinical presentation of diarrhea (Check Stool cultures to rule out C diff). No bowel obstruction. Nonspecific thickening of the distal esophageal wall. (Continue PPI) Having RUQ and epigastric pain, elevated Tbili this morning and CT Abd showed Cholelithiasis. Continue monitoring. (2) DONNY (acute kidney injury): Code(s): N17.9 - Acute kidney failure, unspecified Status: Acute Assessment and Plan: DONNY. Baseline around 1.0 from prior labs. Could be from severe anemia and lack of circulation vs the patient getting a dose of IV Lasix 20 mg at 0046 last evening, which could have contributed to the elevation this morning. Elevated this morning to 1.9. We are monitoring fluid status due to diastolic dysfunction. BP has been stable, continue monitoring to keep above 100 systolic to allow good perfusion. On broad spectrum antibiotics which could cause some renal impairment, will make sure this is renally dosed. Continue monitoring. (3) Anemia: Qualifiers: Anemia type: unspecified type Qualified Code(s): D64.9 - Anemia, unspecified Code(s): D64.9 - Anemia, unspecified Status: Acute Assessment and Plan: Acute on chronic anemia. Patient is once again profoundly anemic, secondary to blood dyscrasia and possibly as result of his recent chemotherapy. H&H improved this morning with a hemoglobin of 7.6. Since after 2 Units of PRBCs were transfused. Stable today. Talked to Dr. Lopez who recommended to continue giving filgrastim and check H&H Q12hrs. Continue monitoring H&H. Transfuse as needed if less than 7. Appreciate hematology is input. (4) Neutropenia: Qualifiers: Neutropenia type: secondary to cancer chemotherapy Qualified Code(s): D70.1 - Agranulocytosis secondary to cancer chemotherapy; T45.1X5A - Adverse effect of antineoplastic and immunosuppressive drugs, initial encounter Code(s): D70.9 - Neutropenia, unspecified Status: Acute Assessment and Plan: Moderate neutropenia. Empiric antibiotics at the request of Dr. Lopez. CT Abdomen showed Bilateral lower lobe infiltrate and/atelectasis. Could have Pneumonia as the cause of symptoms, but he is not having a cough. Blood, urine, stool and sputum cultures pending. Dr. Lopez who recommended to continue giving filgrastim. Continue monitoring. Tailor antibiotics based on infection. (5) Congestive heart failure: Code(s): I50.9 - Heart failure, unspecified Status: Chronic Assessment and Plan: Echocardiogram last month demonstrated diastolic dysfunction. He has trace lower extremity edema. Monitor volume status closely well transfusing. Euvolemic at this time. Continue monitoring. (6) Confusion: Code(s): R41.0 - Disorientation, unspecified Status: Acute Assessment and Plan: Patient appears confused compared to when I saw him a couple of weeks ago, possible toxic encephalopathy related to his underlying illnesses. Brain CT was unremarkable. CT abdomen showed possible pneumonia. Continue broad-spectrum antibiotics. Pending blood cultures, sputum culture, stool cultures, urine cultures. Continue to monitor with neurologic checks q.4 hours. (7) Hypomagnesemia: Code(s): E83.42 - Hypomagnesemia Status: Acute Assessment and Plan: Will sup
--- NOTE | 2020-10-11 10:20 | PCOTNOTE ---
Attempted OT evaluation, patient currently undergoing tests, will follow and attempt at later time. RN aware.
--- NOTE | 2020-10-11 10:39 | PCPTNOTE ---
Attempted PT evaluation, patient currently undergoing tests, will follow and attempt at later time. RN aware. STEVO PierreT
[2020-10-11 11:00] LABS: Alveolar/Arterial O2 Gradient 79.2 mmHg; Base Excess ABG -3.5 mEq/l (+/-2.0); Carboxyhemoglobin 0.6 % THb (0-2.0); Fractional Inspired Oxygen 28 %; HCO3 ABG 20.7 mEq/l (22.0-26.0); Methemoglobin ABG 0.4 %THb (0-1.5); Oxygen Content ABG 10.8 %vol (16.0-22.0); Oxygen Saturation ABG 96.1 % (95.0-100.0); Oxyhemoglobin 93.6 % THb (90.0-100.0); PCO2 ABG 33.7 mmHg (35.0-45.0); PO2 ABG 80.7 mmHg (80.0-100.0); PO2 FiO2 Ratio Arterial Blood 2.88 %; Reduced Hemoglobin 5.4 %THb (0-5.0); Total Hemoglobin 8.1 g/dL (12.0-18.0); pH ABG 7.407 (7.350-7.450)
[2020-10-11 11:03] LABS: Device NASAL CANNULA; Site Drawn LEFT BRACHIAL
[2020-10-11] MEDS: PANTOPRAZOLE SODIUM IV 40 MG VIAL IV PUSH ×2 (12:23→22:01)
[2020-10-11 13:39] LABS: Alanine Aminotransferase 34 U/L (4-50); Albumin Level 3.7 g/dL (3.5-5.1); Alkaline Phosphatase 74 U/L (38-126); Anion Gap 10 mmol/L (8-16); Aspartate Amino Transferase 19 U/L (17-59); Bilirubin,Total 2.9 mg/dL (0.2-1.3); Blood Urea Nitrogen 33 mg/dL (9-20); Calcium 8.3 mg/dL (8.4-10.2); Carbon Dioxide 22 mmol/L (22-30); Chloride 109 mmol/L (98-107); Estimated CRCL calculation 38 ml/min; Estimated Glomerular Filt Rate 37; Glucose 129 mg/dL (75-110); Potassium 3.3 mmol/L (3.4-5.0); Sodium 141 mmol/L (137-145)
[2020-10-11 13:45] LABS: Magnesium 2.2 mg/dL (1.6-2.3)
--- NOTE | 2020-10-11 15:59 | PM.CNNEP ---
Assessment and Plan Assessment and plan (1) DONNY (acute kidney injury): Code(s): N17.9 - Acute kidney failure, unspecified Status: Acute Assessment and Plan: Shaheen has acute kidney injury. His creatinine was normal before this. Now his risen to 1.9. He has received some IV fluids and his blood pressure is okay so if this were purely dehydration I would think he would be turning around a little bit by now. Obstruction is ruled out because he has a Shaw catheter in and his renal ultrasound does not show obstruction. Interstitial nephritis is a possibility because he is on Levaquin now. He does not have any rash or fever however. ATN is a possibility if he was dehydrated severely enough but is blood pressure was pretty well controlled. He does not look toxic from an infectious disease standpoint. Other causes include glomerulonephritis which is unlikely in this setting but we will check some labs for this. (2) HTN (hypertension): Qualifiers: Hypertension type: essential hypertension Qualified Code(s): I10 - Essential (primary) hypertension Code(s): I10 - Essential (primary) hypertension Status: Acute Assessment and Plan: Blood pressure is well controlled right now. He is not on any antihypertensives right now. (3) Confusion: Code(s): R41.0 - Disorientation, unspecified Status: Acute Assessment and Plan: Nursing says that he waxes and wanes. (4) Congestive heart failure: Code(s): I50.9 - Heart failure, unspecified Status: Chronic Assessment and Plan: His ejection fraction is good. He does have some diastolic dysfunction. He has sleep apnea but does not seem to have pulmonary hypertension according to his echo. So I do not think this is playing a role in his renal failure. (5) Myelodysplastic syndrome: Code(s): D46.9 - Myelodysplastic syndrome, unspecified Status: Acute Assessment and Plan: His counts are low. Dr. Lopez is looking in on this and adjusting medications. (6) COPD (chronic obstructive pulmonary disease): Qualifiers: COPD type: unspecified COPD Qualified Code(s): J44.9 - Chronic obstructive pulmonary disease, unspecified Code(s): J44.9 - Chronic obstructive pulmonary disease, unspecified Status: Acute (7) Coronary artery disease: Qualifiers: Coronary Disease-Associated Artery/Lesion type: [place] artery [place] vs. transplanted heart: [place] heart Associated angina: with unspecified angina Qualified Code(s): I25.119 - Atherosclerotic heart disease of [place] coronary artery with unspecified angina pectoris Code(s): I25.10 - Atherosclerotic heart disease of [place] coronary artery without angina pectoris Status: Acute Assessment and Plan: No chest pain or shortness of breath (8) Hyperlipidemia: Qualifiers: Hyperlipidemia type: mixed hyperlipidemia Qualified Code(s): E78.2 - Mixed hyperlipidemia Code(s): E78.5 - Hyperlipidemia, unspecified Status: Acute Assessment and Plan: he is on simvastatin History of Present Illness Reason for Consult Consult date: 10/11/20 Chief Complaint Chief complaint: Anemia, neutropenia History of Present Illness Narrative: Shaheen is a very pleasant gentleman who has multiple medical problems including recently diagnosed myelodysplastic syndrome, coronary disease, congestive heart failure, hypertension, paroxysmal atrial fibrillation, benign prostatic hypertrophy, and sleep apnea. The patient came in the hospital because of nausea vomiting and diarrhea. This is been going on for a few days before admission. He was seen in the emergency room. There his blood pressure was a little bit low but not severely low. His creatinine was normal. He looked a little dehydrated. He was given IV fluids. His creatinine stefano a little bit. IV fluids were continued. However
[2020-10-11 17:00] LABS: Add Urine Microscopic? YES; Appearance Urine Cloudy (Clear); Bacteria Urine Trace /hpf; Bilirubin Urine Negative (Negative); Blood Urine 2+ (Negative); Color Urine Amber (Yellow); Glucose Urine UA Negative (Negative); Ketones Urine Negative (Negative); Leukocyte Esterase Ur Negative LEU/UL (NEGATIVE); Mucus Urine Rare /lpf; Nitrate Urine Negative (Negative); Protein Urine 1+ mg/dL (Negative); RBC Urine 21-50 /hpf (0-2); Squamous Epithelial Cell Urine Occasional /hpf (Few)
[2020-10-11 17:02] LABS: Hematocrit 22.1 % (42.0-52.0); Hemoglobin 7.3 g/dL (14.0-18.0)
[2020-10-11 17:12] LABS: Creatine Kinase < 20 U/L (55-170)
[2020-10-11 17:13] LABS: Creatinine Urine 172.7 mg/dL; Total Protein Urine Random 33 mg/dL; Ur Ttl Prot Creatinine Ratio 0.19 mg/mg (0-0.20)
[2020-10-11 17:15] LABS: Sodium Urine Random 7 meq/L
[2020-10-11 17:19] LABS: Complement C3 81 mg/dL (88-165)
[2020-10-11] MEDS: SIMVASTATIN 20 MG TABLET PO (17:25)
[2020-10-11 17:36] LABS: Erythrocyte Sedimentation Rate > 140 mm/hr (0-20)
--- NOTE | 2020-10-11 17:41 | PDONCCN ---
HPI - Date of Consult Date/Time: 10/11/20 17:41 Requesting Physician: Fiordaliza Dekcer PA-C Primary Care Provider: Brian Lara MD - Consult Narrative Reason for consult: Myelodysplastic syndrome. Narrative: Shaheen Castañeda is a 70 year old male with recent diagnosis of myelodysplastic syndrome and received 1st round of chemotherapy with Dacogen on October 01, 2020 at [facility]. Patient came into the hospital with generalized weakness along with nausea vomiting and diarrhea. Patient labs showed WBC count is 0.8 [place] hemoglobin [place] 6[place] [address]. He denies any bleeding but remains quite tired and fatigued. His creatinine risen up to 1.9. Nephrology service was consulted. CTA abdomen was performed due to unspecified abdominal pain that showed colonic air-fluid level consistent with diarrhea. No bowel obstruction. C diff testing was ordered. Review of Systems - Review of Systems All systems reviewed & are unremarkable except as noted in [facility] and [facility] Medical History: Medical History (Last Reviewed 10/11/20 @ 16:05 by Vitaly Capps MD) Benign prostatic hyperplasia Cerebrovascular accident Old left occipital lobe infarct noted on brain CT on 10/10/2020. Chronic obstructive pulmonary disease Congestive heart failure Echo on 09/09/2020 showed normal left ventricular systolic function and grade 1 diastolic dysfunction. Coronary artery disease Status post CABG in 2010. 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 Followed by Dr. Lopez. Obstructive sleep apnea Patient does not use CPAP. Osteoarthritis Paroxysmal atrial fibrillation Vitamin D deficiency disease Surgical History: Surgical History (Last Reviewed 10/11/20 @ 16:05 by Vitaly Capps MD) History of coronary angioplasty with insertion of stent Onset Date: ~1996 History of coronary artery bypass graft Onset Date: ~2010 Family History: Family History (Last Reviewed 10/11/20 @ 16:05 by Vitaly Capps MD) Sibling Diabetes mellitus Family history of cardiovascular disease Family history of sleep apnea Familial primary pulmonary hypertension Family history of chronic obstructive pulmonary disease Father Family history of cardiovascular disease, Onset Age: 65 Family history of coronary artery disease Mother Family history of malignant neoplasm, Onset Age: 72 Diabetes mellitus Family history of liver disease - Social History Social History: Social History (Last Reviewed 10/11/20 @ 16:05 by Vitaly Capps MD) Gender Identity: Gender identity (if verbalized by the patient): Male Alcohol Use: Alcohol intake: current Drinks per week: 1 Substance Use: Substance use: former Substance use type: marijuana Other substance usage details: Years ago he used hallucinogens, mushrooms. Others: Spiritual care concerns: No Smoking Status: Smoking status: Former smoker Second hand tobacco smoke exposure: No Smoking Pack-years: Smoking packs per day: 1 Smoking cigarettes per day: 20.0 Years smoked: 40 Smoking pack-years: 40.00 Meds Home Medications Medication Instructions Recorded Confirmed Type loratadine [Allergy Relief 10 mg PO DAILY 09/02/20 10/10/20 History (loratadine)] tamsulosin 0.4 mg PO DAILY 09/09/20 10/10/20 History simvastatin 20 mg tablet 20 mg PO QPM #90 tablet 09/24/20 10/10/20 Rx allopurinol 300 mg PO DAILY 10/10/20 10/10/20 History aspirin 81 mg PO DAILY 10/10/20 10/10/20 History levofloxacin 500 mg PO DAILY 10/10/20 10/10/20 History posaconazole 300 mg PO TID 10/10/20 10/10/20 History valacyclovir 500 mg PO DAILY 10/10/20 10/10/20 History Allergies Allergy/AdvReac Type Severity Reaction Status Date / Time Penicillins Allergy U
[2020-10-11 17:45] LABS: Eosinophil Urine None Seen % (None Seen)
[2020-10-12] VITALS (20 sets, daily range): BP systolic 88–110; BP diastolic 33–48; PULSE 62–88; RESP 18–40; TEMP 36.6–38.7; O2SAT 90–99
--- NOTE | 2020-10-12 03:53 | PM.EVENT ---
Event Note Event Note Event Note: 10/12/2020 at 4:00 a.m. Nursing staff called Hahn as patient was more altered than baseline. The patient would not start a sentence and then stop. The patient was also having recurrence of tachypnea. The nursing staff reported the patient was tachypneic while awake but his respiratory rate would improve when he was asleep. The patient would answer questions in 1 word responses. His responses were significantly delayed but were correct. He would follow simple commands. A stat ABG was performed and was stable when compared to previous values. Upon review of the patient's chart is noted the patient had spiked a fever change in his status. I suspect the patient's symptoms are related to fever and his underlying infectious process. Exam: Patient is obese, chronically ill-appearing, tachypneic with respiratory rate around 30, regular pulse rate, alert and oriented times 2-3, speech is clear but delayed, generalized pallor, non jaundice, warm to touch Assessment and plan: Metabolic encephalopathy: Continue antibiotic therapy with cefepime and vancomycin. Blood cultures and stool studies are pending. Patient is having desaturations with sleep. He is on 2 L nasal cannula satting 97%.
[2020-10-12 04:14] LABS: Alveolar/Arterial O2 Gradient 63.3 mmHg; Base Excess ABG -3.4 mEq/l (+/-2.0); Carboxyhemoglobin 1.3 % THb (0-2.0); Fractional Inspired Oxygen 28 %; HCO3 ABG 20.7 mEq/l (22.0-26.0); Methemoglobin ABG 0.3 %THb (0-1.5); Modified Allen's Test Unable to perform; Oxygen Content ABG 9.9 %vol (16.0-22.0); Oxygen Saturation ABG 97.6 % (95.0-100.0); Oxyhemoglobin 94.9 % THb (90.0-100.0); PCO2 ABG 32.9 mmHg (35.0-45.0); PO2 ABG 97.5 mmHg (80.0-100.0); PO2 FiO2 Ratio Arterial Blood 3.48 %; Reduced Hemoglobin 3.5 %THb (0-5.0); Site Drawn RIGHT RADIAL; Total Hemoglobin 7.3 g/dL (12.0-18.0); pH ABG 7.417 (7.350-7.450)
[2020-10-12 04:15] LABS: Device NASAL CANNULA
[2020-10-12 05:34] LABS: Immature Platelet Fraction Pct 9.8 % (0.9-11.2); Mean Corpuscular HGB Conc 33.3 g/dl (32-36); Mean Corpuscular Hemoglobin 29.1 pg (26-34); Mean Corpuscular Volume 87.4 fl (80-100); Mean Platelet Volume 11.4 fl (7.4-10.4); Platelet Count Result 53 k/mm3 (150-375); Red Cell Distribution Width 14.4 % (11.5-14.5)
[2020-10-12 05:40] LABS: White Blood Count 0.8 K/mm3 (4.5-10.0)
[2020-10-12 05:41] LABS: Hematocrit 20.1 % (42.0-52.0); Hemoglobin 6.7 g/dL (14.0-18.0)
[2020-10-12 05:51] LABS: Alanine Aminotransferase 27 U/L (4-50); Albumin Level 2.9 g/dL (3.5-5.1); Alkaline Phosphatase 61 U/L (38-126); Anion Gap 7 mmol/L (8-16); Aspartate Amino Transferase 16 U/L (17-59); Bilirubin,Total 1.5 mg/dL (0.2-1.3); Blood Urea Nitrogen 40 mg/dL (9-20); Calcium 7.8 mg/dL (8.4-10.2); Carbon Dioxide 21 mmol/L (22-30); Chloride 109 mmol/L (98-107); Estimated CRCL calculation 35 ml/min; Estimated Glomerular Filt Rate 33; Glucose 150 mg/dL (75-110); Potassium 3.6 mmol/L (3.4-5.0); Sodium 137 mmol/L (137-145)
[2020-10-12] MEDS: SODIUM CHLORIDE 0.9% IV 250 ML 30 ML IV CONT (08:00)
--- NOTE | 2020-10-12 08:00 | PCOTNOTE ---
The OT treatment was held this morning per nursing due to change in medical condition. Will continue per Plan of Care frequency and duration.
--- NOTE | 2020-10-12 08:19 | PM.PNNEP ---
Progress Note: A&P Assessment and Plan (1) DONNY (acute kidney injury): Code(s): N17.9 - Acute kidney failure, unspecified Status: Acute Assessment and Plan: Shaheen has acute kidney injury. His creatinine was normal before this. Creatinine stefano to 1.4 then 1.9 and now is 2.0. Renal ultrasound shows 1 smallish kidney compared to the other. Urine electrolytes look pre renal. Last evening the patient became short of breath so IV fluids were discontinued. Although he denies shortness of breath now, will get a chest x-ray just to be sure there is nothing going on. He had an echocardiogram done which showed good LV function. It is unlikely that the patient would have pre renal azotemia plus good heart function and be fluid overloaded. I wonder if there might be another reason for the shortness of breath such as aspiration or pneumonia? Reduced GFR will reduce allopurinol to 150 (2) HTN (hypertension): Qualifiers: Hypertension type: essential hypertension Qualified Code(s): I10 - Essential (primary) hypertension Code(s): I10 - Essential (primary) hypertension Status: Acute Assessment and Plan: Blood pressure is well controlled right now. He is not on any antihypertensives right now. (3) Confusion: Code(s): R41.0 - Disorientation, unspecified Status: Acute Assessment and Plan: Nursing says that he waxes and wanes. He seems a little worse today than yesterday. Could this be a valacyclovir side effect? I did not stop this because I am unclear as to why he is on this. He was on it on admission. On admission however his creatinine was normal and now it is elevated so he could have had a little retention of the valacyclovir leading to some side effects. I do not think that this is too high a dose, as 500 mg a day is a renal dose for the valacyclovir. (4) Congestive heart failure: Code(s): I50.9 - Heart failure, unspecified Status: Chronic Assessment and Plan: His ejection fraction is good. He does have some diastolic dysfunction. He has sleep apnea but does not seem to have pulmonary hypertension according to his echo. So I do not think this is playing a role in his renal failure. (5) Myelodysplastic syndrome: Code(s): D46.9 - Myelodysplastic syndrome, unspecified Status: Acute Assessment and Plan: His counts are low. Dr. Lopez is looking in on this and adjusting medications. He is getting Neupogen (6) COPD (chronic obstructive pulmonary disease): Qualifiers: COPD type: unspecified COPD Qualified Code(s): J44.9 - Chronic obstructive pulmonary disease, unspecified Code(s): J44.9 - Chronic obstructive pulmonary disease, unspecified Status: Acute Assessment and Plan: Comfortable lying flat in bed on oxygen (7) Coronary artery disease: Qualifiers: Coronary Disease-Associated Artery/Lesion type: [place] artery [place] vs. transplanted heart: [place] heart Associated angina: with unspecified angina Qualified Code(s): I25.119 - Atherosclerotic heart disease of [place] coronary artery with unspecified angina pectoris Code(s): I25.10 - Atherosclerotic heart disease of [place] coronary artery without angina pectoris Status: Acute Assessment and Plan: No chest pain or shortness of breath (8) Hyperlipidemia: Qualifiers: Hyperlipidemia type: mixed hyperlipidemia Qualified Code(s): E78.2 - Mixed hyperlipidemia Code(s): E78.5 - Hyperlipidemia, unspecified Status: Acute Assessment and Plan: he is on simvastatin Subjective Date/time seen: 10/12/20 08:19 Interval history: Shaheen is confused today. He has delayed responses. He denies pain or shortness of breath. Review of Systems Cardiovascular: Cardiovascular: Reports no additional cardiovascular complaints Respiratory: Respiratory: Reports no additional respiratory com
--- NOTE | 2020-10-12 08:44 | PCPTNOTE ---
The PT treatment was held this morning per RN due to change in medical condition. Will continue per Plan of Care frequency and duration.
--- NOTE | 2020-10-12 08:57 | PM.IMPN ---
Progress Note: A&P Assessment and Plan (1) Neutropenia: Qualifiers: Neutropenia type: secondary to cancer chemotherapy Qualified Code(s): D70.1 - Agranulocytosis secondary to cancer chemotherapy; T45.1X5A - Adverse effect of antineoplastic and immunosuppressive drugs, initial encounter Code(s): D70.9 - Neutropenia, unspecified Status: Acute Assessment and Plan: Fever in setting of neutropenia. Empiric antibiotics initiated at the request of Dr. Lopez (vanc and cefepime day #3). Possible pneumonia given CXR and CT results and exam today. BCx NGTD x 2; repeat BCx pending. Dr. Lopez consulted and appreciate recommendations Continue filgrastim per Dr. Lopez rec Continue Vanc and cefepime for now ID consultation Transfer to IMU due to decline in clinical status Tailor antibiotics based on infection. Continue to monitor (2) Sepsis: Code(s): A41.9 - Sepsis, unspecified organism Status: Acute Assessment and Plan: Met Sepsis Criteria with temp of 101.7, tachypnea, leukopenia; in setting of neutropenia/pancytopenia. BCx NGTD x 2. Unclear source although possible pneumonia vs less likely GI (c. diff negative) vs urinary (UCx negative). Continue broad spectrum abx as above ID consultation monitor cultures Monitor volume status given CHF (3) DONNY (acute kidney injury): Code(s): N17.9 - Acute kidney failure, unspecified Status: Acute Assessment and Plan: DONNY. Baseline around 1.0 from prior labs. Cr today is 2.00. Could be from severe anemia vs dehydration as he appears dry on exam vs medication induced (Lasix, vanc) vs other. Nephrology consulted and appreciate recommendations Monitor fluid status particularly with transfusion today and respiratory status Monitor renal function Continue broad spectrum abx for now pending ID input, monitor closely with vanc Renally dose meds; avoid nephrotoxic agents if possible (4) Anemia: Qualifiers: Anemia type: unspecified type Qualified Code(s): D64.9 - Anemia, unspecified Code(s): D64.9 - Anemia, unspecified Status: Acute Assessment and Plan: Chronic anemia. No s/sx of acute blood loss. Patient is once again profoundly anemic, secondary to blood dyscrasia and possibly as result of his recent chemotherapy. Hgb 6.7 today; 1 u pRBC transfusing currently Appreciate Dr. Lopez rec Continue Filgrastim Q12 hr H&H H&H (5) Abdominal pain: Code(s): R10.9 - Unspecified abdominal pain Status: Acute Assessment and Plan: Patient reported vague upper abdominal discomfort. RUQ ttp today on exam. CT of the abdomen and pelvis revealed cholelithiasis without evidence of acute cholecystitis; Diarrhea on CT. C. diff negative. Bili decreasing to 1.5 today; LFTs WNL Continue PPI RUQ US today Continue monitoring. (6) Congestive heart failure: Code(s): I50.9 - Heart failure, unspecified Status: Chronic Assessment and Plan: Echocardiogram last month demonstrated diastolic dysfunction. He has trace lower extremity edema. Tachypneic today but MM appear dry Monitor volume status closely well transfusing. Continue monitoring. (7) Confusion: Code(s): R41.0 - Disorientation, unspecified Status: Acute Assessment and Plan: Patient appears confused compared to last hospital visit a couple of weeks ago when I saw him; possible toxic encephalopathy related to his underlying illnesses. Brain CT was unremarkable. CT abdomen showed possible pneumonia. Continue broad-spectrum antibiotics. Appreciate ID recommendations Follow cultures Continue to monitor with neurologic checks q.4
[2020-10-12 09:14] LABS: Alveolar/Arterial O2 Gradient 65.2 mmHg; Base Excess ABG -5.7 mEq/l (+/-2.0); Carboxyhemoglobin 0.3 % THb (0-2.0); Fractional Inspired Oxygen 28 %; HCO3 ABG 18.8 mEq/l (22.0-26.0); Methemoglobin ABG 0.5 %THb (0-1.5); Oxygen Content ABG 9.7 %vol (16.0-22.0); Oxygen Saturation ABG 97.3 % (95.0-100.0); Oxyhemoglobin 94.9 % THb (90.0-100.0); PCO2 ABG 32.2 mmHg (35.0-45.0); PO2 ABG 96.4 mmHg (80.0-100.0); PO2 FiO2 Ratio Arterial Blood 3.44 %; Reduced Hemoglobin 4.3 %THb (0-5.0); pH ABG 7.384 (7.350-7.450)
[2020-10-12 09:17] LABS: Device NASAL CANNULA; Site Drawn LEFT BRACHIAL; Total Hemoglobin 7.1 g/dL (12.0-18.0)
--- NOTE | 2020-10-12 10:10 | PC.NURSE ---
Report call to Joel CHERY in IMU and patient was transferred via bed to IMU /. Shaw draining and blood infusing.
--- NOTE | 2020-10-12 11:18 | PC.NURSE ---
This patient, Shaheen Castañeda, was received from [ [id number] ] on 10/12/20 at 1015. Patient/family oriented to unit policies and routines.
[2020-10-12] MEDS: allopurinoL 300 MG TABLET PO (12:08)
[2020-10-12] MEDS: LORATADINE 10 MG TABLET PO (12:08)
[2020-10-12] MEDS: PANTOPRAZOLE SODIUM IV 40 MG VIAL IV PUSH ×2 (12:09→20:05)
[2020-10-12] MEDS: valACYclovir HCL 500 MG TABLET PO (12:09)
[2020-10-12] MEDS: SODIUM CHLORIDE 0.9% IV 1,000 ML 70 ML IV CONT (12:09)
[2020-10-12] MEDS: TAMSULOSIN HCL 0.4 MG CAPSULE PO (12:09)
[2020-10-12] MEDS: FILGRASTIM 480 MCG/1.6 ML VIAL SUB-Q (12:12)
[2020-10-12 13:05] LABS: Hematocrit 21.2 % (42.0-52.0); Hemoglobin 7.1 g/dL (14.0-18.0)
--- NOTE | 2020-10-12 13:14 | WPDONCPN ---
Progress Note: A/P - Additional Plan Myelodysplastic syndrome. Patient is due to have 2nd round of chemotherapy with decitibine on October 25. Pancytopenia. Secondary to MDS and chemotherapy. Continue Neupogen. WBC count stable. We will avoid blood transfusion unless hemoglobin is in low 6. Antimicrobial prophylaxis. Continue Valtrex and posconazole. Acute renal insufficiency. Secondary to dehydration and ATN. Nephrology is following. - Time Spent With Patient Total time spent is greater than 50% in coordination of care (as documented) at patient's floor/unit and/or counseling patient: 15 - 25 minutes Subjective Interval history: Myelodysplastic syndrome Pancytopenia Review of Systems - Review of Systems Patient remains tired and fatigued. He denies any bleeding and bruising. No fevers and chills. He has some constipation. Complain of some abdominal bloating. No other new complaints. Exam Vital signs: Temp Pulse Resp BP Pulse Ox 36.6 C 64 24 H 102/40 L 98 10/12/20 11:15 10/12/20 11:15 10/12/20 11:15 10/12/20 11:15 10/12/20 10:52 Narrative: Lungs are clear to auscultation bilaterally Cardiovascular regular rate rhythm no murmurs Abdomen slightly distended bowel sounds are diminished Extremities no edema PN: Objective Data - Labs CBC & Chem 7: 10/12/20 12:59 10/12/20 04:49 Labs: Laboratory Results - last 24 hr 10/10/20 10/11/20 10/11/20 12:08 13:20 13:20 WBC RBC Hgb Hct MCV MCH MCHC RDW Plt Count MPV % Immature Plt Fraction ESR Puncture Site ABG pH ABG pCO2 ABG pO2 ABG PO2/FiO2 Ratio ABG HCO3 ABG O2 Saturation ABG O2 Content ABG Base Excess A-a Gradient Oxyhemoglobin Carboxyhemoglobin Methemoglobin Reduced Hemoglobin Total Hemoglobin O2 Delivery Device O2 Liters/Min FiO2 Sodium 141 Potassium 3.3 L Chloride 109 H Carbon Dioxide 22 Anion Gap 10 BUN 33 H Creatinine 1.80 H Estim Creat Clear Calc 38 Estimated GFR 37 L Glucose 129 H Calcium 8.3 L Phosphorus Magnesium 2.2 Total Bilirubin 2.9 H AST 19 ALT 34 Alkaline Phosphatase 74 Total Creatine Kinase Total Protein 7.0 Albumin 3.7 Urine Color Urine Appearance Urine pH Ur Specific [place] Urine Protein Urine Glucose (UA) Urine Ketones Ur Blood (Man) Urine Nitrate Urine Bilirubin Urine Urobilinogen Ur Leukocyte Esterase Urine RBC Urine WBC Ur Squamous Epith Cells Urine Bacteria Hyaline Casts Urine Mucus Urine Eosinophils U Random Total Protein Ur Random Sodium Urine Creatinine Protein/Creat Ratio 2 Complement C3 Complement C4 Blood Type A Positive Antibody Screen Negative Crossmatch See Detail 10/11/20 10/11/20 10/11/20 16:36 16:36 16:36 WBC RBC Hgb 7.3 L Hct 22.1 L MCV MCH MCHC RDW Plt Count MPV % Immature Plt Fraction ESR Puncture Site ABG pH ABG pCO2 ABG pO2 ABG PO2/FiO2 Ratio ABG HCO3 ABG O2 Saturation ABG O2 Content ABG Base Excess A-a Gradient Oxyhemoglobin Carboxyhemoglobin Methemoglobin Reduced Hemoglobin Total Hemoglobin O2 Delivery Device O2 Liters/Min FiO2 Sodium Potassium Chloride Carbon Dioxide Anion Gap BUN Creatinine Estim Creat Clear Calc Estimated GFR Glucose Calcium Phosphorus Magnesium Total Bilirubin AST ALT Alkaline Phosphatase Total Creatine Kinase < 20 L Total Protein Albumin Urine Color Urine Appearance Urine pH Ur Specific [place] Urine Protein Urine Glucose (UA) Urine Ketones Ur Blood (Man) Urine Nitrate Urine Bilirubin Urine Urobilinogen Ur Leukocyte Esterase Urine RBC Urine WBC U
--- NOTE | 2020-10-12 15:02 | PC.NURSE ---
On 10/12/20, the student, [MORELIA MAXWELL], provided care and completed [facility] documentation on this patient. I have reviewed the student's documentation and agree with the findings.
[2020-10-12 17:10] LABS: Hematocrit 20.2 % (42.0-52.0); Hemoglobin 6.8 g/dL (14.0-18.0)
[2020-10-12] MEDS: FUROSEMIDE 40 MG TABLET PO (18:07)
[2020-10-12] MEDS: SIMVASTATIN 20 MG TABLET PO (18:07)
--- NOTE | 2020-10-12 20:19 | PC.NURSE ---
Pt noted to be breathing heavy and with coarse lung sounds. Pt offered and encouraged the BIPAP, pt refused. Provided education on BIPAP and JERROD and pt condition. Pt again refused BIPAP at this time. Will continue to moniter.
[2020-10-13] VITALS (13 sets, daily range): BP systolic 89–117; BP diastolic 21–74; PULSE 66–104; RESP 20–32; TEMP 36.3–37.1; O2SAT 93–98
[2020-10-13 05:32] LABS: Immature Granulocyte Absolute 0.03 K/mm3 (0.00-0.031); Immature Platelet Fraction Pct 10.9 % (0.9-11.2); Lymphocytes Absolute Auto 0.25 K/mm3 (0.9-3.2); Mean Corpuscular HGB Conc 32.8 g/dl (32-36); Mean Corpuscular Volume 88.3 fl (80-100); Mean Platelet Volume 11.8 fl (7.4-10.4); Neutrophils Absolute Auto 0.2 K/mm3 (1.3-6.7); Platelet Count Result 39 k/mm3 (150-375); Red Blood Count 2.31 M/mm3 (4.6-6.20); Red Cell Distribution Width 14.3 % (11.5-14.5)
[2020-10-13 06:05] LABS: Alanine Aminotransferase 29 U/L (4-50); Albumin Level 2.7 g/dL (3.5-5.1); Alkaline Phosphatase 60 U/L (38-126); Anion Gap 6 mmol/L (8-16); Aspartate Amino Transferase 22 U/L (17-59); Bilirubin,Total 1.1 mg/dL (0.2-1.3); Blood Urea Nitrogen 52 mg/dL (9-20); Calcium 7.8 mg/dL (8.4-10.2); Carbon Dioxide 22 mmol/L (22-30); Chloride 110 mmol/L (98-107); Estimated CRCL calculation 28 ml/min; Estimated Glomerular Filt Rate 26; Glucose 106 mg/dL (75-110); Hemoglobin 6.7 g/dL (14.0-18.0); Magnesium 1.9 mg/dL (1.6-2.3); Phosphorus 3.8 mg/dL (2.5-4.5); Potassium 3.6 mmol/L (3.4-5.0); Sodium 138 mmol/L (137-145); White Blood Count 0.5 K/mm3 (4.5-10.0)
[2020-10-13 06:06] LABS: Hematocrit 20.4 % (42.0-52.0)
[2020-10-13] MEDS: PANTOPRAZOLE SODIUM IV 40 MG VIAL IV PUSH ×2 (08:39→20:31)
[2020-10-13] MEDS: TAMSULOSIN HCL 0.4 MG CAPSULE PO (08:39)
[2020-10-13] MEDS: FLUCONAZOLE 150 MG TABLET PO (08:39)
[2020-10-13] MEDS: valACYclovir HCL 500 MG TABLET PO (08:39)
[2020-10-13] MEDS: FUROSEMIDE 20 MG TABLET PO (08:39)
[2020-10-13] MEDS: FILGRASTIM 480 MCG/1.6 ML VIAL SUB-Q (08:39)
[2020-10-13] MEDS: LORATADINE 10 MG TABLET PO (08:39)
[2020-10-13] MEDS: allopurinoL 300 MG TABLET PO (08:40)
--- NOTE | 2020-10-13 10:24 | PCOTNOTE ---
Spoke with physician this date as patient went to IMU from [address] [place] [address] for closer monitoring. Per Physician, no change in medical status and patient is okay to continue skilled therapy services per plan of care. Patient currently Medical floor status and planned to move out of IMU to 2nd or 3rd [facility] surgical unit.
--- NOTE | 2020-10-13 12:52 | WPDONCPN ---
Progress Note: A/P - Additional Plan Myelodysplastic syndrome. Continue antimicrobial prophylaxis. Patient will receive 2nd round of chemotherapy as an outpatient. Bone marrow biopsy will be done after 2nd round of chemotherapy at [facility]. Pancytopenia. Hemoglobin is stable with WBC count has dropped. Continue Neupogen. Antimicrobial prophylaxis. Continue Valtrex. Diflucan was added. Acute renal insufficiency. Creatinine has increased. Could be secondary to dehydration and diarrhea. Diarrhea. C diff negative. I will add Imodium as needed. - Time Spent With Patient Total time spent is greater than 50% in coordination of care (as documented) at patient's floor/unit and/or counseling patient: 15 - 25 minutes Subjective Interval history: Myelodysplastic syndrome Pancytopenia Review of Systems - Review of Systems Patient is complaining of diarrhea. He remains tired and fatigued. No bleeding and bruising. No fevers and chills. Exam Vital signs: Ricardo Gonzalez. Assessment of coma and impaired consciousness. A practical scale. Lancet 1974; 2:81-4. Narrative: Lungs are clear to auscultation bilaterally Cardiovascular regular rate rhythm no murmurs Abdomen soft nontender nondistended bowel sounds are positive Extremities no edema PN: Objective Data - Labs CBC & Chem 7: 10/13/20 04:55 10/13/20 04:55 Labs: Laboratory Results - last 24 hr 10/10/20 10/12/20 10/12/20 12:08 12:59 16:59 WBC RBC Hgb 7.1 L 6.8 L* Hct 21.2 L 20.2 L* MCV MCH MCHC RDW Plt Count MPV Immature Gran % (Auto) Neut % (Auto) Lymph % (Auto) Bee % (Auto) Eos % (Auto) Baso % (Auto) Lymph # (Auto) Bee # (Auto) Eos # (Auto) Baso # (Auto) Abs Immat Gran (auto) Absolute Neuts (auto) Absolute Nucleated RBC Nucleated RBC % % Immature Plt Fraction Sodium Potassium Chloride Carbon Dioxide Anion Gap BUN Creatinine Estim Creat Clear Calc Estimated GFR Glucose Calcium Phosphorus Magnesium Total Bilirubin Direct Bilirubin AST ALT Alkaline Phosphatase Total Protein Albumin Blood Type A Positive Antibody Screen Negative Crossmatch See Detail 10/13/20 10/13/20 04:55 04:55 WBC 0.5 L* RBC 2.31 L Hgb 6.7 L* Hct 20.4 L* MCV 88.3 MCH 29.0 MCHC 32.8 RDW 14.3 Plt Count 39 L MPV 11.8 H Immature Gran % (Auto) 6.0 H Neut % (Auto) 36.0 L Lymph % (Auto) 50.0 H Bee % (Auto) 6.0 Eos % (Auto) 2.0 Baso % (Auto) 0.0 L Lymph # (Auto) 0.25 L Bee # (Auto) 0.0 L Eos # (Auto) 0.0 Baso # (Auto) 0.0 Abs Immat Gran (auto) 0.03 Absolute Neuts (auto) 0.2 L Absolute Nucleated RBC 0.0 Nucleated RBC % 0.0 % Immature Plt Fraction 10.9 Sodium 138 Potassium 3.6 Chloride 110 H Carbon Dioxide 22 Anion Gap 6 L BUN 52 H D Creatinine 2.50 H Estim Creat Clear Calc 28 Estimated GFR 26 L Glucose 106 Calcium 7.8 L Phosphorus 3.8 Magnesium 1.9 Total Bilirubin 1.1 Direct Bilirubin 0.0 AST 22 ALT 29 Alkaline Phosphatase 60 Total Protein 6.0 L Albumin 2.7 L Blood Type Antibody Screen Crossmatch
[2020-10-13] MEDS: LOPERAMIDE HCL 2 MG CAPSULE PO (13:13)
--- NOTE | 2020-10-13 14:19 | PM.IMPN ---
Progress Note: A&P Assessment and Plan (1) Neutropenia: Qualifiers: Neutropenia type: secondary to cancer chemotherapy Qualified Code(s): D70.1 - Agranulocytosis secondary to cancer chemotherapy; T45.1X5A - Adverse effect of antineoplastic and immunosuppressive drugs, initial encounter Code(s): D70.9 - Neutropenia, unspecified Status: Acute Assessment and Plan: Fever in setting of neutropenia. Empiric antibiotics initiated at the request of Dr. Lopez (vanc and cefepime day #4). Pneumonia given CXR and CT results and exam today (2) Sepsis: Code(s): A41.9 - Sepsis, unspecified organism Status: Acute Assessment and Plan: Met Sepsis Criteria with high temperatures (3) DONNY (acute kidney injury): Code(s): N17.9 - Acute kidney failure, unspecified Status: Acute Assessment and Plan: DONNY. Baseline around 1.0 from prior labs. Cr today is 2.5 (4) Anemia: Qualifiers: Anemia type: unspecified type Qualified Code(s): D64.9 - Anemia, unspecified Code(s): D64.9 - Anemia, unspecified Status: Acute Assessment and Plan: Chronic anemia. (5) Abdominal pain: Code(s): R10.9 - Unspecified abdominal pain Status: Acute Assessment and Plan: Patient reported vague upper abdominal discomfort. RUQ ttp today on exam. CT of the abdomen and pelvis revealed cholelithiasis without evidence of acute cholecystitis; Diarrhea on CT. C. diff negative. (6) Congestive heart failure: Code(s): I50.9 - Heart failure, unspecified Status: Chronic Assessment and Plan: Echocardiogram last month demonstrated diastolic dysfunction. (7) Confusion: Code(s): R41.0 - Disorientation, unspecified Status: Acute Assessment and Plan: Patient appears confused compared to last hospital visit a couple of weeks ago when I saw him; possible toxic encephalopathy related to his underlying illnesses. Brain CT was unremarkable. CT abdomen showed possible pneumonia. (8) Hypomagnesemia: Code(s): E83.42 - Hypomagnesemia Status: Acute Assessment and Plan: 1.9 (9) Hypokalemia: Code(s): E87.6 - Hypokalemia Status: Acute Assessment and Plan: K 3.6 (10) Elevated bilirubin: Code(s): R17 - Unspecified jaundice Status: Acute Assessment and Plan: Elevated Subjective Date/time seen: 10/13/20 14:19 Interval history: Patient is a 70 yo M with history of myelodysplastic syndrome, BPH, COPD, CHF, CAD, JERROD, paroxysmal a fib among other comorbid conditions who is seen in follow up for multiple issues including pancytopenia, DONNY, fever in setting of neutropenia and confusion. Sp blood transfusion Sp antibiotics patient appears more stable ok to transfer to [facility] HEM/ ONC services. I am discussing with transfer line presently. Transfer for second round of chemotherapy of MDS, DR Lopez to discuss with transfer line, chemo is not due until 3 october Review of Systems Review of Systems: All systems reviewed & are unremarkable except as noted in HPI and below Exam Narrative: Exam Narrative: General: Patient resting supine in bed Cardiovascular: irregular rhythm, normal rate. Respiratory: diffuse rhonchi appreciated Abdomen: Soft, obese abd, TTP RUQ, non-distended, bowel sounds present. Extremities: Peripheral pulses intact. Neuro: No focal neurological deficits to casual conversation Objective Data
--- NOTE | 2020-10-13 14:39 | PCPTNOTE ---
Attempted to see patient at 14:35 for PT treatment, however patient unable to stay awake long enough for participate in therapy. Despite moderate verbal and tactile cues, patient continued to fall back asleep. When awake, patient replied no when asked to participate with therapy. Will continue per plan of care as appropriate. Raissa Sandhu, [employer]
--- NOTE | 2020-10-13 14:51 | WPDINFPN2 ---
Progress Note: A&P Assessment and Plan (1) Neutropenic fever: Code(s): D70.9 - Neutropenia, unspecified; R50.81 - Fever presenting with conditions classified elsewhere Status: Acute Assessment and Plan: Neutropenic fever, no source apparent REC BCs in process, Cefepime and Vanc #3. Subjective Date/time seen: 10/13/20 14:51 Objective Data Vital Signs Vital Signs: Vital Signs - 24 hr 10/12/20 16:00 10/12/20 18:00 10/12/20 20:00 Temperature 36.6 C 36.6 C Pulse Rate 62 64 66 Respiratory Rate 20 20 Blood Pressure 110/48 L 96/40 L Pulse Oximetry 96 90 10/12/20 22:00 10/12/20 23:30 10/12/20 23:37 Temperature 36.8 C Pulse Rate 80 85 68 Respiratory Rate 18 22 H Blood Pressure 106/40 L Pulse Oximetry 96 93 10/12/20 23:55 10/13/20 00:00 10/13/20 02:00 Temperature Pulse Rate 69 68 66 Respiratory Rate 29 H Blood Pressure Pulse Oximetry 94 96 10/13/20 04:00 10/13/20 06:00 10/13/20 08:00 Temperature 36.9 C 36.4 C Pulse Rate 67 70 69 Respiratory Rate 22 H 32 H Blood Pressure 109/39 L 108/42 L Pulse Oximetry 97 97 10/13/20 08:41 10/13/20 08:58 10/13/20 12:00 Temperature 36.3 C L Pulse Rate 104 H Respiratory Rate 28 H Blood Pressure 116/74 Pulse Oximetry 98 93 97 Intake/Output Intake/Output: Intake & Output 10/10/20 10/11/20 10/12/20 10/13/20 23:59 23:59 23:59 23:59 Intake Total 1527 2350 2651 50 Output Total 320 2530 600 300 Balance 1207 -180 2051 -250 Meds/Results Medications: Active Medications Generic Name Dose Route Start Last Admin Trade Name Freq PRN Reason Stop Dose Admin Allopurinol 300 mg 10/11/20 09:00 10/13/20 08:40 Allopurinol 300 Mg Tablet PO 300 mg DAILY LANG Administration Filgrastim 480 mcg 10/10/20 17:27 10/13/20 08:39 Filgrastim 480 Mcg/1.6 Ml Vial SUB-Q 480 mcg QAM LANG Administration Fluconazole 150 mg 10/13/20 09:00 10/13/20 08:39 Fluconazole 150 Mg Tablet PO 10/18/20 00:00 150 mg DAILY LANG Administration Furosemide 40 mg 10/13/20 17:00 Furosemide 40 Mg Tablet PO BID LANG Cefepime HCl 1 gm in 50 mls @ 100 mls/hr 10/11/20 21:00 10/13/20 00:12 Maxipime 1 Gm/D5w 50 Ml IVPB Infused Q24H LANG Infusion Vancomycin HCl 1,500 mg in 500 mls @ 333.333 mls/hr 10/12/20 03:00 10/12/20 05:50 Vancomycin 1,500 Mg/D5w 500 Ml IVPB Infused Q36H LANG Infusion Loperamide HCl 2 mg 10/13/20 12:41 10/13/20 13:13 Loperamide Hcl 2 Mg Capsule PO 2 mg PRN PRN Administration Diarrhea Loratadine 10 mg 10/11/20 09:00 10/13/20 08:39 Loratadine 10 Mg Tablet PO 10 mg DAILY LANG Administration Pantoprazole Sodium 40 mg 10/11/20 09:00 10/13/20 08:39 Pantoprazole Sodium Iv 40 Mg Vial IV PUSH 40 mg Q12HR LANG Administration Simvastatin 20 mg 10/10/20 21:40 10/12/20 18:07 Simvastatin 20 Mg Tablet PO 20 mg QPM LANG Administration Tamsulosin HCl 0.4 mg 10/11/20 09:00 10/13/20 08:39 Tamsulosin Hcl 0.4 Mg Capsule PO 0.4 mg DAILY LANG Administration Valacyclovir HCl 500 mg 10/11/20 09:00 10/13/20 08:39 Valacyclovir Hcl 500 Mg Tablet PO 500 mg DAILY LANG Administration Radiology Results: ITS Impressions Head CT 10/10/20 13:03 IMPRESSION: 1. 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 No acute intracranial process. 2. Moderate scattered white matter hypoattenuation consistent with chronic small vessel ischemic disease. Abdomen/Pelvis CT 10/11/20 07:17 IMPRESSION: Colonic air fluid levels, consistent with clinical presentation of diarrhea; no bowel obstruction Normal appendix Nonspecific thickening of the distal esophageal wall Small sliding hiatal hernia Bilateral lower lobe infiltrate and/atelectasis Cardiomegaly, coronary artery calcification Cholelithiasis Splenomegaly Bilateral renal atrophy Bilateral nonobstructive nephrolithiasis Left renal cyst Venous Doppler Study 10/11/20 12:04
[2020-10-13 14:58] LABS: Vancomycin Trough 8.7 ug/mL (10.0-20.0)
--- NOTE | 2020-10-13 15:15 | PCOTNOTE ---
Attempted to see Patient for afternoon session. Upon entering the room, Patient was sleeping. Patient was awoke and refused to participate with any functional activity. Per RN, Patient had been up earlier to and from the commode and was worn out. Patient will be checked back on for a treatment session tomorrow.
--- NOTE | 2020-10-13 17:10 | PM.PNNEP ---
Progress Note: A&P Assessment and Plan (1) DONNY (acute kidney injury): Code(s): N17.9 - Acute kidney failure, unspecified Status: Acute Assessment and Plan: Shaheen has acute kidney injury. His creatinine was normal before this. Creatinine stefano to 1.4 then 1.9 and now is 2.5. Renal ultrasound shows 1 smallish kidney compared to the other. Urine electrolytes look pre renal. Urinalysis shows protein plus a little blood. Patient is not taking anything in. His creatinine is worse. His urine electrolytes are pre renal. His echo shows normal heart function. I think we need to give him some IV fluids. Repeat renal function panel tomorrow. (2) HTN (hypertension): Qualifiers: Hypertension type: essential hypertension Qualified Code(s): I10 - Essential (primary) hypertension Code(s): I10 - Essential (primary) hypertension Status: Acute Assessment and Plan: Blood pressure is well controlled right now. He is not on any antihypertensives right now. (3) Confusion: Code(s): R41.0 - Disorientation, unspecified Status: Acute Assessment and Plan: Nursing says that he waxes and wanes. Head CT was okay. Electrolytes look okay. Blood gases look okay. Will check an ammonia level, TSH, B12, folate. Possibly this is due to his neutropenic fever. (4) Congestive heart failure: Code(s): I50.9 - Heart failure, unspecified Status: Chronic Assessment and Plan: His ejection fraction is good. He does have some diastolic dysfunction. He has sleep apnea but does not seem to have pulmonary hypertension according to his echo. So I do not think this is playing a role in his renal failure. (5) Myelodysplastic syndrome: Code(s): D46.9 - Myelodysplastic syndrome, unspecified Status: Acute Assessment and Plan: His counts are low. Dr. Lopez is looking in on this and adjusting medications. He is getting Neupogen (6) COPD (chronic obstructive pulmonary disease): Qualifiers: COPD type: unspecified COPD Qualified Code(s): J44.9 - Chronic obstructive pulmonary disease, unspecified Code(s): J44.9 - Chronic obstructive pulmonary disease, unspecified Status: Acute Assessment and Plan: Comfortable lying flat in bed on oxygen (7) Coronary artery disease: Qualifiers: Coronary Disease-Associated Artery/Lesion type: [place] artery [place] vs. transplanted heart: [place] heart Associated angina: with unspecified angina Qualified Code(s): I25.119 - Atherosclerotic heart disease of [place] coronary artery with unspecified angina pectoris Code(s): I25.10 - Atherosclerotic heart disease of [place] coronary artery without angina pectoris Status: Acute Assessment and Plan: No chest pain or shortness of breath (8) Hyperlipidemia: Qualifiers: Hyperlipidemia type: mixed hyperlipidemia Qualified Code(s): E78.2 - Mixed hyperlipidemia Code(s): E78.5 - Hyperlipidemia, unspecified Status: Acute Assessment and Plan: he is on simvastatin Subjective Date/time seen: 10/13/20 17:10 Interval history: Shaheen is still confused. Delayed responses. He denies pain or shortness of breath. Lying flat in bed without shortness of breath. Exam Narrative: Exam Narrative: WDWN in NAD skin no rash head ncat lungs clear bilaterally cor reg no rub abd BS+ nontender and soft ext 1+ edema. Objective Data Vital Signs Vital Signs: Vital Signs - 24 hr 10/12/20 18:00 10/12/20 20:00 10/12/20 22:00 Temperature 36.6 C Pulse Rate 64 66 80 Respiratory Rate 20 Blood Pressure 96/40 L Pulse Oximetry 90 10/12/20 23:30 10/12/20 23:37 10/12/20 23:55 Temperature 36.8 C Pulse Rate 85 68 69 Respiratory Rate 18 22 H 29 H Blood Pressure 106/40 L Pulse Oximetry 96 93 94 10/13/20 00:00 10/13/20 02:00 10/13/20 04:00 Temperature 36.9 C Pu
[2020-10-13] MEDS: SIMVASTATIN 20 MG TABLET PO (17:39)
[2020-10-13] MEDS: FUROSEMIDE 40 MG TABLET PO (17:39)
[2020-10-13 18:01] LABS: Hematocrit 19.8 % (42.0-52.0); Hemoglobin 6.6 g/dL (14.0-18.0)
[2020-10-13 18:06] LABS: Ammonia 13 umol/L (9-30)
--- NOTE | 2020-10-13 18:39 | CONS_ITS ---
DATE OF CONSULTATION: 10/13/2020 REASON FOR CONSULTATION: Neutropenic fever. HISTORY OF PRESENT ILLNESS: A 70-year-old male, who can provide limited history. 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 He has been receiving chemotherapy and has a Port-A-Cath in the right upper chest, which is not currently accessed. He was admitted to the hospital on October 10 with weakness, nausea, vomiting, and diarrhea. While here, he has been noted to have renal insufficiency, multiple electrolyte abnormalities, anemia, confusion, abdominal pain, elevated bilirubin. He has also developed fever and has been on cefepime and vancomycin day #3. ALLERGIES: PENICILLIN, UNKNOWN REACTION. HE TOLERATES CEPHALOSPORINS WITHOUT DIFFICULTY. HOME MEDICATIONS: Include: 1. Levofloxacin. 2. Posaconazole. 3. Valacyclovir. HABITS: Ex-smoker. No alcohol to excess. FAMILY HISTORY: Heart disease, diabetes, hypertension. SOCIAL HISTORY: He is , retired, lives locally. No family at the bedside. PAST MEDICAL HISTORY: CABG, previous angioplasties, PAF, osteoarthritis, JERROD, hypertension, colon polyp, gout, stroke, COPD, and BPH. REVIEW OF SYSTEMS: Limited by the patient's level of alertness. 14-point review otherwise negative. PHYSICAL EXAMINATION: GENERAL: Elderly male, who appears actual age. No acute distress. VITAL SIGNS: Afebrile currently, 116/74. T-max on the morning of the up to 38.7, respirations 28, 116/74, 97% on room air. SKIN: Warm and dry. No rashes. He has several purplish macules over the coccyx area. No skin breakdown. He has no evidence of perirectal abscess and no ulcerations elsewhere noted. NODES: He has no axillary or cervical adenopathy. EENT: The oral mucosa is dry. No thrush. Pupils equal, round. Conjunctivae are normal. NECK: No masses, thyromegaly. LUNGS: Clear to auscultation and percussion. Chest Port-A-Cath is above, equal expansion. CARDIAC: Tachycardic, regular. No murmurs. ABDOMEN: Nontender, soft. No organomegaly. No masses. No evidence of ascites. Morbidly obese. EXTREMITIES: 1+ edema at the ankles. LABORATORY DATA: Blood cultures, no growth so far, 6 sets total. His white blood cell count is 500, was 1.0 on arrival, hemoglobin 6.7, which is down, platelets of 39. Differential shows 36% PMNs for ANC of 200. His blood gases 7.38, 32, 96. His BUN 52, creatinine 2.5, up from 23 and 1.4, glucose normal, calcium 7.8, bilirubin down to normal. Other liver function tests normal except for an albumin 2.7. Urinalysis 21-50 red cells, 7-9 white cells. Abdominal ultrasound performed yesterday, hepatic steatosis and gallstones. Chest x-ray, bibasilar lung opacities, cardiomegaly. Renal ultrasound, atrophied left kidney and abdomen pelvic CT on arrival suggestive of diarrhea. Normal appendix, hiatal hernia, atelectasis or infiltrate, cardiomegaly, splenomegaly, renal atrophy, renal cysts. ASSESSMENT: 1. Neutropenic fever. Uncertain etiology. Considerations include cholecystitis, community-acquired pneumonia, infectious diarrhea, less likely skin soft tissue, bone and joint, central nervous system, biliary otherwise or intraabdominal infections. Noninfectious causes of fever are unlikely. 2. Myelodysplastic syndrome with progression. 3. Morbid obesity. 4. Benign prostatic hypertrophy, Shaw catheter in place currently, but not chronically. RECOMMENDATIONS: 1. Vancomycin, cefepime, appropriate date 3. Pharmacist dosing vancomycin, target trough 15-20. 2. Follow up on above blood cultures as well as clinical course. 3. Length of antibiotics to be determined. 4. Also on his suppressive antiviral and antifungal.
[2020-10-13] MEDS: SODIUM BICARBONATE 8.4% 150 MEQ in WATER, STERILE FOR INJECTION 950 ML 50 MEQ IV CONT (19:49)
[2020-10-14] VITALS (13 sets, daily range): BP systolic 83–103; BP diastolic 35–42; PULSE 59–92; RESP 12–32; TEMP 36.4–38.4; O2SAT 91–99
[2020-10-14 05:18] LABS: Immature Platelet Fraction Pct 11.3 % (0.9-11.2); Mean Corpuscular HGB Conc 32.8 g/dl (32-36); Mean Corpuscular Hemoglobin 29.2 pg (26-34); Mean Corpuscular Volume 88.9 fl (80-100); Mean Platelet Volume 11.5 fl (7.4-10.4); Platelet Count Result 33 k/mm3 (150-375); Red Blood Count 2.26 M/mm3 (4.6-6.20); Red Cell Distribution Width 14.3 % (11.5-14.5)
[2020-10-14 05:29] LABS: Albumin Level 2.6 g/dL (3.5-5.1); Anion Gap 8 mmol/L (8-16); Blood Urea Nitrogen 61 mg/dL (9-20); Calcium 7.9 mg/dL (8.4-10.2); Carbon Dioxide 22 mmol/L (22-30); Chloride 109 mmol/L (98-107); Estimated CRCL calculation 24 ml/min; Estimated Glomerular Filt Rate 22; Glucose 111 mg/dL (75-110); Phosphorus 3.6 mg/dL (2.5-4.5); Potassium 3.4 mmol/L (3.4-5.0); Sodium 139 mmol/L (137-145)
[2020-10-14 05:46] LABS: Hemoglobin 6.6 g/dL (14.0-18.0); White Blood Count 0.5 K/mm3 (4.5-10.0)
[2020-10-14 05:47] LABS: Hematocrit 20.1 % (42.0-52.0)
[2020-10-14] MEDS: LORATADINE 10 MG TABLET PO (08:12)
[2020-10-14] MEDS: FUROSEMIDE 40 MG TABLET PO ×2 (08:12→17:12)
[2020-10-14] MEDS: FLUCONAZOLE 150 MG TABLET PO (08:12)
[2020-10-14] MEDS: valACYclovir HCL 500 MG TABLET PO (08:12)
[2020-10-14] MEDS: TAMSULOSIN HCL 0.4 MG CAPSULE PO (08:12)
[2020-10-14] MEDS: PANTOPRAZOLE SODIUM IV 40 MG VIAL IV PUSH ×2 (08:13→20:29)
[2020-10-14] MEDS: allopurinoL 150 MG TABLET PO (08:13)
[2020-10-14] MEDS: FILGRASTIM 480 MCG/1.6 ML VIAL SUB-Q (08:17)
--- NOTE | 2020-10-14 10:31 | PCOTNOTE ---
Attempted to see patient this date for skilled OT session. Patient was lying in bed with difficulty vocalizing and keeping eyes open, appearing sleepy. Per RN and Physician Primary Care Sports Medicine, patient is not doing well this date with low counts, SAUL advised to hold therapy this date. Will plan to continue treatment per plan of care.
--- NOTE | 2020-10-14 11:18 | PCPTNOTE ---
Per RN the PT treatment was held today. Will continue per Plan of Care frequency and duration.
--- NOTE | 2020-10-14 12:28 | PM.PNNEP ---
Progress Note: A&P Assessment and Plan (1) DONNY (acute kidney injury): Code(s): N17.9 - Acute kidney failure, unspecified Status: Acute Assessment and Plan: Shaheen has acute kidney injury. His creatinine was normal before this. Creatinine stefano to 1.4 then 1.9 then 2.5 and now 2.9 Renal ultrasound shows 1 smallish kidney compared to the other. Urine electrolytes look pre renal. Urinalysis shows protein plus a little blood. Patient is not taking anything in. His creatinine is worse. His urine electrolytes are pre renal. His echo shows normal heart function. He was getting some IV fluids overnight at a slow rate so may not have taken effect. Repeat renal function panel tomorrow. (2) HTN (hypertension): Qualifiers: Hypertension type: essential hypertension Qualified Code(s): I10 - Essential (primary) hypertension Code(s): I10 - Essential (primary) hypertension Status: Acute Assessment and Plan: Blood pressure is well controlled right now. He is not on any antihypertensives right now. (3) Confusion: Code(s): R41.0 - Disorientation, unspecified Status: Acute Assessment and Plan: Nursing says that he waxes and wanes. Head CT was okay. Electrolytes look okay. Blood gases look okay. Will check an ammonia level, TSH, B12, folate. Possibly this is due to his neutropenic fever? He is very encephalopathic. could he have a [employer] infection such as Toxo or crypto? I talked with Dr Lazo who is ordering a neuro consult and checking a ct scan. I also talked with Dr Gusman who is going to see the patient today. (4) Congestive heart failure: Code(s): I50.9 - Heart failure, unspecified Status: Chronic Assessment and Plan: His ejection fraction is good. He does have some diastolic dysfunction. He has sleep apnea but does not seem to have pulmonary hypertension according to his echo. So I do not think this is playing a role in his renal failure. (5) Myelodysplastic syndrome: Code(s): D46.9 - Myelodysplastic syndrome, unspecified Status: Acute Assessment and Plan: His counts are low. Dr. Lopez is looking in on this and adjusting medications. He is getting Neupogen (6) COPD (chronic obstructive pulmonary disease): Qualifiers: COPD type: unspecified COPD Qualified Code(s): J44.9 - Chronic obstructive pulmonary disease, unspecified Code(s): J44.9 - Chronic obstructive pulmonary disease, unspecified Status: Acute Assessment and Plan: Comfortable lying flat in bed on oxygen (7) Coronary artery disease: Qualifiers: Coronary Disease-Associated Artery/Lesion type: [place] artery [place] vs. transplanted heart: [place] heart Associated angina: with unspecified angina Qualified Code(s): I25.119 - Atherosclerotic heart disease of [place] coronary artery with unspecified angina pectoris Code(s): I25.10 - Atherosclerotic heart disease of [place] coronary artery without angina pectoris Status: Acute Assessment and Plan: No chest pain or shortness of breath (8) Hyperlipidemia: Qualifiers: Hyperlipidemia type: mixed hyperlipidemia Qualified Code(s): E78.2 - Mixed hyperlipidemia Code(s): E78.5 - Hyperlipidemia, unspecified Status: Acute Assessment and Plan: he is on simvastatin Subjective Date/time seen: 10/14/20 12:28 Interval history: Shaheen is still confused. Delayed responses. Review of Systems Review of Systems: ROS unobtainable: Yes unobtainable due to medical condition Exam Narrative: Exam Narrative: WDWN in NAD skin no rash head ncat lungs clear bilaterally cor reg no rub abd BS+ nontender and soft ext 1+ edema. neck supple, not stiff Objective Data Vital Signs Vital Signs: Vital Signs - 24 hr 10/13/20 16:00 10/13/20 19:32 10/13/20 20:00 Temperature 36.4 C 36.6 C Pulse Rate 7
--- NOTE | 2020-10-14 12:57 | P.PNONC_ITS ---
Progress Note: A/P - Additional Plan Myelodysplastic syndrome. CBC noted. Continue Neupogen 480 mcg daily. I tried contacting physician at [facility] and left my phone number for call back. Pancytopenia. Id input noted. Continue broad-spectrum antimicrobial coverage. Patient is currently on fluconazole, Valtrex and cefepime. C diff negative diarrhea. Diarrhea is under control with Imodium. Acute renal insufficiency. Nephrology services on the board. Input noted. - Time Spent With Patient Total time spent is greater than 50% in coordination of care (as documented) at patient's floor/unit and/or counseling patient: 15 - 25 minutes Subjective Interval history: Myelodysplastic syndrome Pancytopenia Review of Systems - Review of Systems Patient denies any fevers and chills. He also denies any diarrhea. Denies any abdominal pain. He remains tired and has some sweating. No other new complaints. Exam Vital signs: Ricardo Gonzalez. Assessment of coma and impaired consciousness. A practical scale. Lancet 1974; 2:81-4. Narrative: Lungs are clear to auscultation bilaterally Cardiovascular regular rate rhythm no murmurs Abdomen soft nontender nondistended bowel sounds are positive Extremities no edema PN: Objective Data - Labs CBC & Chem 7: 10/14/20 04:43 10/14/20 04:43 Labs: Laboratory Results - last 24 hr 10/10/20 10/13/20 10/13/20 12:08 14:10 17:50 WBC RBC Hgb 6.6 L* Hct 19.8 L* MCV MCH MCHC RDW Plt Count MPV % Immature Plt Fraction Sodium Potassium Chloride Carbon Dioxide Anion Gap BUN Creatinine Estim Creat Clear Calc Estimated GFR Glucose Calcium Phosphorus Ammonia Albumin Vancomycin Trough 8.7 L Crossmatch See Detail 10/13/20 10/14/20 10/14/20 17:50 04:43 04:43 WBC 0.5 L* RBC 2.26 L Hgb 6.6 L* Hct 20.1 L* MCV 88.9 MCH 29.2 MCHC 32.8 RDW 14.3 Plt Count 33 L MPV 11.5 H % Immature Plt Fraction 11.3 H Sodium 139 Potassium 3.4 Chloride 109 H Carbon Dioxide 22 Anion Gap 8 BUN 61 H Creatinine 2.90 H Estim Creat Clear Calc 24 Estimated GFR 22 L Glucose 111 H Calcium 7.9 L Phosphorus 3.6 Ammonia 13 Albumin 2.6 L Vancomycin Trough Crossmatch
[2020-10-14] MEDS: SODIUM CHLORIDE 0.9% IV 1,000 ML 100 ML IV CONT (13:29)
--- NOTE | 2020-10-14 15:38 | PM.IMPN ---
Progress Note: A&P Assessment and Plan (1) Neutropenia: Qualifiers: Neutropenia type: secondary to cancer chemotherapy Qualified Code(s): D70.1 - Agranulocytosis secondary to cancer chemotherapy; T45.1X5A - Adverse effect of antineoplastic and immunosuppressive drugs, initial encounter Code(s): D70.9 - Neutropenia, unspecified Status: Acute Assessment and Plan: Fever in setting of neutropenia. Empiric antibiotics initiated at the request of Dr. Lopez (vancomycin and cefepime day #5). (2) Sepsis: Code(s): A41.9 - Sepsis, unspecified organism Status: Acute Assessment and Plan: Met Sepsis Criteria with high temperatures, id consulted (3) DONNY (acute kidney injury): Code(s): N17.9 - Acute kidney failure, unspecified Status: Acute Assessment and Plan: DONNY. Baseline around 1.0 from prior labs. Cr today is 2.9 pt seeing nephrology (4) Anemia: Qualifiers: Anemia type: unspecified type Qualified Code(s): D64.9 - Anemia, unspecified Code(s): D64.9 - Anemia, unspecified Status: Acute Assessment and Plan: Chronic anemia. (5) Abdominal pain: Code(s): R10.9 - Unspecified abdominal pain Status: Acute Assessment and Plan: Patient reported vague upper abdominal discomfort. RUQ ttp today on exam. CT of the abdomen and pelvis revealed cholelithiasis without evidence of acute cholecystitis; Diarrhea on CT. C. diff negative. (6) Congestive heart failure: Code(s): I50.9 - Heart failure, unspecified Status: Chronic Assessment and Plan: Echocardiogram last month demonstrated diastolic dysfunction. (7) Confusion: Code(s): R41.0 - Disorientation, unspecified Status: Acute Assessment and Plan: Patient appears confused compared to last hospital visit a couple of weeks ago when I saw him; possible toxic encephalopathy related to his underlying illnesses. Brain CT was unremarkable.possibly encephalopathy change iv abx to rocephin, vancomycin and ampicillin neurology consulted for encephalopathy (8) Hypomagnesemia: Code(s): E83.42 - Hypomagnesemia Status: Acute Assessment and Plan: mg is 1.9 (9) Hypokalemia: Code(s): E87.6 - Hypokalemia Status: Acute Assessment and Plan: K 3.4 (10) Elevated bilirubin: Code(s): R17 - Unspecified jaundice Status: Acute Assessment and Plan: Elevated Subjective Date/time seen: 10/14/20 15:38 Interval history: Documentation of this patient encounter should include: Reason for the encounter Relevant history Pt is not doing well looks increasing confused with fever neutropenic, history of Myelodysplastic syndrome Pancytopenia, BP is low and High RR Pt is not improving. declining trying to contact his next of kin no response Review of Systems Review of Systems: All systems reviewed & are unremarkable except as noted in HPI and below Exam Narrative: Exam Narrative: General: Patient confused and encephalopathic Cardiovascular: irregular rhythm. Respiratory: Rhonchi appreciated Abdomen: Soft, obese abdomen, non tender Extremities: Peripheral pulses intact. Neuro: Confused and encephalopathic Objective Data Vital Signs Vital Signs: Vital Signs - 24 hr 10/13/20 16:00 10/13/20 19:32 10/13/20 20:00 Temperature 36.4 C 36.6 C Pulse Rate 72 77 Respiratory Rate 26 H 23 H Blood Pressure 93/35 L 89
[2020-10-14] MEDS: SIMVASTATIN 20 MG TABLET PO (17:12)
[2020-10-15] VITALS (9 sets, daily range): BP systolic 93–158; BP diastolic 33–50; PULSE 62–102; RESP 20–32; TEMP 36.2–37.7; O2SAT 91–100
[2020-10-15] MEDS: SODIUM CHLORIDE 0.9% IV 1,000 ML 100 ML IV CONT ×2 (00:02→08:21)
[2020-10-15 05:07] LABS: Eosinophils Percent Auto 2.5 % (0-4.4); Immature Granulocyte Absolute 0.02 K/mm3 (0.00-0.031); Immature Platelet Fraction Pct 10.2 % (0.9-11.2); Lymphocytes Absolute Auto 0.29 K/mm3 (0.9-3.2); Lymphocytes Percent Auto 72.5 % (18.3-44.2); Mean Corpuscular HGB Conc 32.5 g/dl (32-36); Mean Corpuscular Hemoglobin 29.4 pg (26-34); Mean Corpuscular Volume 90.4 fl (80-100); Mean Platelet Volume 10.7 fl (7.4-10.4); Neutrophils Absolute Auto 0.1 K/mm3 (1.3-6.7); Platelet Count Result 36 k/mm3 (150-375); Red Blood Count 2.18 M/mm3 (4.6-6.20); Red Cell Distribution Width 14.2 % (11.5-14.5)
[2020-10-15 05:23] LABS: Alanine Aminotransferase 60 U/L (4-50); Albumin Level 2.4 g/dL (3.5-5.1); Alkaline Phosphatase 57 U/L (38-126); Anion Gap 5 mmol/L (8-16); Aspartate Amino Transferase 39 U/L (17-59); Bilirubin,Total 1.6 mg/dL (0.2-1.3); Blood Urea Nitrogen 68 mg/dL (9-20); Calcium 8.1 mg/dL (8.4-10.2); Carbon Dioxide 26 mmol/L (22-30); Chloride 110 mmol/L (98-107); Estimated CRCL calculation 23 ml/min; Estimated Glomerular Filt Rate 21; Glucose 149 mg/dL (75-110); Potassium 3.2 mmol/L (3.4-5.0); Sodium 141 mmol/L (137-145)
[2020-10-15 06:10] LABS: Hematocrit 19.7 % (42.0-52.0); Hemoglobin 6.4 g/dL (14.0-18.0); White Blood Count 0.4 K/mm3 (4.5-10.0)
[2020-10-15 06:11] LABS: Ovalocytes 1+ (NORMAL); Platelet Estimate Decreased (Adequate)
[2020-10-15] MEDS: PANTOPRAZOLE SODIUM IV 40 MG VIAL IV PUSH (08:22)
[2020-10-15] MEDS: valACYclovir HCL 500 MG TABLET PO (08:22)
[2020-10-15] MEDS: FILGRASTIM 480 MCG/1.6 ML VIAL SUB-Q (08:22)
[2020-10-15] MEDS: FUROSEMIDE 40 MG TABLET PO (08:22)
[2020-10-15] MEDS: LORATADINE 10 MG TABLET PO (08:22)
[2020-10-15] MEDS: allopurinoL 150 MG TABLET PO (08:22)
[2020-10-15] MEDS: TAMSULOSIN HCL 0.4 MG CAPSULE PO (08:22)
[2020-10-15] MEDS: FLUCONAZOLE 150 MG TABLET PO (08:23)
--- NOTE | 2020-10-15 11:07 | PM.PNNEP ---
Progress Note: A&P Assessment and Plan (1) DONNY (acute kidney injury): Code(s): N17.9 - Acute kidney failure, unspecified Status: Acute Assessment and Plan: Shaheen has acute kidney injury. His creatinine was normal before this. Creatinine stefano to 1.4 then 1.9 then 2.5 and now 3.0. It seems that the rate of rise is decreasing and hopefully will start to improve soon. It seems that the rate of rise decreased when I started the IV fluids. Renal ultrasound shows 1 smallish kidney compared to the other. Urine electrolytes look pre renal. Urinalysis shows protein plus a little blood. No sign of volume overload. Continue IV fluids for 1 more [address] Discuss[address] with Dr. Lazo (2) HTN (hypertension): Qualifiers: Hypertension type: essential hypertension Qualified Code(s): I10 - Essential (primary) hypertension Code(s): I10 - Essential (primary) hypertension Status: Acute Assessment and Plan: Blood pressure is well controlled right now. He is not on any antihypertensives right now. (3) Confusion: Code(s): R41.0 - Disorientation, unspecified Status: Acute Assessment and Plan: Nursing says that he waxes and wanes. Head CT was okay. Electrolytes look okay. Blood gases look okay. Will check an ammonia level, TSH, B12, folate. Neurology consulted and will see. (4) Congestive heart failure: Code(s): I50.9 - Heart failure, unspecified Status: Chronic Assessment and Plan: His ejection fraction is good. He does have some diastolic dysfunction. He has sleep apnea but does not seem to have pulmonary hypertension according to his echo. So I do not think this is playing a role in his renal failure. (5) Myelodysplastic syndrome: Code(s): D46.9 - Myelodysplastic syndrome, unspecified Status: Acute Assessment and Plan: His counts are low. Dr. Lopez is looking in on this and adjusting medications. He is getting Neupogen (6) COPD (chronic obstructive pulmonary disease): Qualifiers: COPD type: unspecified COPD Qualified Code(s): J44.9 - Chronic obstructive pulmonary disease, unspecified Code(s): J44.9 - Chronic obstructive pulmonary disease, unspecified Status: Acute Assessment and Plan: Comfortable lying flat in bed on oxygen (7) Coronary artery disease: Qualifiers: Coronary Disease-Associated Artery/Lesion type: [place] artery [place] vs. transplanted heart: [place] heart Associated angina: with unspecified angina Qualified Code(s): I25.119 - Atherosclerotic heart disease of [place] coronary artery with unspecified angina pectoris Code(s): I25.10 - Atherosclerotic heart disease of [place] coronary artery without angina pectoris Status: Acute Assessment and Plan: No chest pain or shortness of breath (8) Hyperlipidemia: Qualifiers: Hyperlipidemia type: mixed hyperlipidemia Qualified Code(s): E78.2 - Mixed hyperlipidemia Code(s): E78.5 - Hyperlipidemia, unspecified Status: Acute Assessment and Plan: he is on simvastatin Subjective Date/time seen: 10/15/20 11:07 Interval history: Shaheen is still confused. he was more alert and regarded me when I came in the room this time which is an improvement. He still did not answer any questions. Review of Systems Review of Systems: ROS unobtainable: Yes unobtainable due to medical condition Exam Narrative: Exam Narrative: WDWN in NAD skin no rash head ncat lungs clear bilaterally cor reg no rub Or gallop abd BS+ nontender and soft ext 1+ edema or cyanosis. neck supple, not stiff Objective Data Vital Signs Vital Signs: Vital Signs - 24 hr 10/14/20 11:12 10/14/20 12:00 10/14/20 16:00 Temperature 36.4 C L 36.6 C Pulse Rate 79 62 Respiratory Rate 26 H 12 Blood Pressure 84/42 L 90/35 L Pulse Oximetry 94 91 97 10/14/20 20:00 0
--- NOTE | 2020-10-15 12:52 | PCPTNOTE ---
RN advised to hold PT. Patient's family discussing comfort measures for patient.
--- NOTE | 2020-10-15 14:55 | PM.IMPN ---
Progress Note: A&P Assessment and Plan (1) Neutropenia: Qualifiers: Neutropenia type: secondary to cancer chemotherapy Qualified Code(s): D70.1 - Agranulocytosis secondary to cancer chemotherapy; T45.1X5A - Adverse effect of antineoplastic and immunosuppressive drugs, initial encounter Code(s): D70.9 - Neutropenia, unspecified Status: Acute Assessment and Plan: Pt changed to comfort care (2) Sepsis: Code(s): A41.9 - Sepsis, unspecified organism Status: Acute Assessment and Plan: Pt changed to comfort care (3) DONNY (acute kidney injury): Code(s): N17.9 - Acute kidney failure, unspecified Status: Acute Assessment and Plan: Pt changed to comfort care (4) Anemia: Qualifiers: Anemia type: unspecified type Qualified Code(s): D64.9 - Anemia, unspecified Code(s): D64.9 - Anemia, unspecified Status: Acute Assessment and Plan: Pt changed to comfort care (5) Abdominal pain: Code(s): R10.9 - Unspecified abdominal pain Status: Acute Assessment and Plan: Pt changed to comfort care (6) Congestive heart failure: Code(s): I50.9 - Heart failure, unspecified Status: Chronic Assessment and Plan: Pt changed to comfort care (7) Confusion: Code(s): R41.0 - Disorientation, unspecified Status: Acute Assessment and Plan: Pt changed to comfort care (8) Hypomagnesemia: Code(s): E83.42 - Hypomagnesemia Status: Acute Assessment and Plan: Pt changed to comfort care (9) Hypokalemia: Code(s): E87.6 - Hypokalemia Status: Acute Assessment and Plan: Pt changed to comfort care (10) Elevated bilirubin: Code(s): R17 - Unspecified jaundice Status: Acute Assessment and Plan: Pt changed to comfort care Subjective Date/time seen: 10/15/20 14:55 Interval history: Documentation of this patient encounter should include: Reason for the encounter Relevant history Pt is not doing well looks increasing confused with pancytopenia, history of Myelodysplastic syndrome Pancytopenia, BP is low and High RR Pt is not improving. poor prognosis discussed with his sister HAILEE Coates, who wants to chose comfort Review of Systems Review of Systems: ROS unobtainable: Yes unobtainable due to mental status (see above) Exam Narrative: Exam Narrative: General: Patient confused and encephalopathic Cardiovascular: irregular rhythm. Respiratory: few rhonchi Abdomen: Soft, obese abdomen, non tender Extremities: Peripheral pulses intact. Neuro: Confused and encephalopathic Objective Data Vital Signs Vital Signs: Vital Signs - 24 hr 10/14/20 16:00 10/14/20 20:00 10/14/20 20:58 Temperature 36.6 C 36.4 C L Pulse Rate 62 70 61 Respiratory Rate 12 15 Blood Pressure 90/35 L 83/35 L Pulse Oximetry 97 98 99 10/14/20 21:20 10/14/20 21:59 10/15/20 00:00 Temperature 36.8 C Pulse Rate 63 59 L 72 Respiratory Rate 30 H 20 Blood Pressure 103/50 L Pulse Oximetry 97 93 100 10/15/20 01:59 10/15/20 04:00 10/15/20 08:00 Temperature 37.4 C 36.9 C Pulse Rate 64 102 H Respiratory Rate 24 H 28 H Blood Pressure 96/37 L 93/33 L Pulse Oximetry 91 96 91 10/15/20 08:53 10/15/20 12:00 Temperature 36.8 C Pulse Rate 62 Respiratory Rate 26 H Blood Pressure 94/35 L Pulse Oximetry 92 94 Intake/Output Intake/Output: Intake & Output
--- NOTE | 2020-10-15 15:51 | PC.NURSE ---
Patient on comfort measures, bed 248 assigned. Report given to MIRI Duque and transferred at 1550 to 248 via bed with 2L nasal cannula attached. Medications and chart given to RN.
[2020-10-15] MEDS: LORazepam INJ (*CRX) 2 MG/ML VIAL 0.5 MG IV PUSH (16:07)
[2020-10-15] MEDS: MORPHINE SULFATE (*CRX) 2 MG/ML INJ 1 MG IV PUSH (16:07)
[2020-10-15] MEDS: SCOPOLAMINE 1.5 MG PATCH TRANSDERM (16:10)
--- NOTE | 2020-10-15 17:06 | PC.NURSE ---
Addendum entered by Dunia Ortiz RN 10/15/20 17:08: Received from [facility] 231/ at 1555. Original Note: Received from [facility] 231/ via bed. Shaw intact and draining dora colored urine.
--- NOTE | 2020-10-15 17:31 | WPDINFPN2 ---
Subjective Date/time seen: 10/15/20 17:31 Interval history: patient not seen, palliative care planned, will sign off Objective Data Vital Signs Vital Signs: Vital Signs - 24 hr 10/14/20 20:00 10/14/20 20:58 10/14/20 21:20 Temperature 36.4 C L Pulse Rate 70 61 63 Respiratory Rate 15 Blood Pressure 83/35 L Pulse Oximetry 98 99 97 10/14/20 21:59 10/15/20 00:00 10/15/20 01:59 Temperature 36.8 C Pulse Rate 59 L 72 Respiratory Rate 30 H 20 Blood Pressure 103/50 L Pulse Oximetry 93 100 91 10/15/20 04:00 10/15/20 08:00 10/15/20 08:53 Temperature 37.4 C 36.9 C Pulse Rate 64 102 H Respiratory Rate 24 H 28 H Blood Pressure 96/37 L 93/33 L Pulse Oximetry 96 91 92 10/15/20 12:00 10/15/20 16:17 Temperature 36.8 C 37.7 C H Pulse Rate 62 65 Respiratory Rate 26 H 20 Blood Pressure 94/35 L 104/40 L Pulse Oximetry 94 95 Intake/Output Intake/Output: Intake & Output 10/12/20 10/13/20 10/14/20 10/15/20 23:59 23:59 23:59 23:59 Intake Total 2651 1400 2075 1000 Output Total 600 900 625 400 Balance 2051 500 1450 600 Meds/Results Medications: Active Medications Generic Name Dose Route Start Last Admin Trade Name Freq PRN Reason Stop Dose Admin Lorazepam 0.5 mg 10/15/20 14:54 10/15/20 16:07 Lorazepam Inj (*Crx) 2 Mg/Ml Vial IV PUSH 0.5 mg Q6H PRN Administration Anxiety Morphine Sulfate 1 mg 10/15/20 14:54 10/15/20 16:07 Morphine Sulfate (*Crx) 2 Mg/Ml Inj IV PUSH 1 mg Q4H PRN Administration COMFORT Scopolamine 1.5 mg 10/15/20 15:00 10/15/20 16:10 Scopolamine 1.5 Mg Patch TRANSDERM 1.5 mg Q72HR LANG Administration Radiology Results: ITS Impressions Abdomen/Pelvis CT 10/11/20 07:17 IMPRESSION: Colonic air fluid levels, consistent with clinical presentation of diarrhea; no bowel obstruction Normal appendix Nonspecific thickening of the distal esophageal wall Small sliding hiatal hernia Bilateral lower lobe infiltrate and/atelectasis Cardiomegaly, coronary artery calcification Cholelithiasis Splenomegaly Bilateral renal atrophy Bilateral nonobstructive nephrolithiasis Left renal cyst Venous Doppler Study 10/11/20 12:04 IMPRESSION: 1. No deep venous thrombosis. Renal Ultrasound 10/11/20 12:30 IMPRESSION: 1. Mild atrophy of left kidney. No hydronephrosis. Chest X-Ray 10/12/20 09:09 IMPRESSION: 1. Airspace opacities in the lower lung zones with worsening on the left, consistent with atelectasis versus pneumonia. 2. Cardiomegaly. Abdomen Ultrasound 10/12/20 12:01 IMPRESSION: 1. Diffuse hepatic steatosis. 2. Cholelithiasis. No evidence of acute cholecystitis. Head CT 10/14/20 13:48 IMPRESSION: 1. 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 2. Stable moderate nonspecific cerebral white matter disease, which likely represents chronic small vessel ischemic disease. Labs Labs: Laboratory Results - last 24 hr 10/11/20 10/15/20 10/15/20 17:55 04:45 04:45 WBC 0.4 L* RBC 2.18 L Hgb 6.4 L* Hct 19.7 L* MCV 90.4 MCH 29.4 MCHC 32.5 RDW 14.2 Plt Count 36 L MPV 10.7 H Immature Gran % (Auto) 5.0 H Neut % (Auto) 15.0 L Lymph % (Auto) 72.5 H [place] % (Auto) 5.0 Eos % (Auto) 2.5 Baso % (Auto) 0.0 L Lymph # (Auto) 0.29 L [place] # (Auto) 0.0 L Eos # (Auto) 0.0 Baso # (Auto) 0.0 Abs Immat Gran (auto) 0.02 Absolute Neuts (auto) 0.1 L Absolute Nucleated RBC 0.0 Nucleated RBC % 0.0 Platelet Estimate Decreased % Immature Plt Fraction 10.2 Ovalocytes 1+ Sodium 141 Potassium 3.2 L Chloride 110 H Carbon Dioxide 26 Anion Gap 5 L BUN 68 H Creatinine 3.00 H Estim Creat Clear Calc 23 Estimated GFR 21 L Glucose 149 H Calcium 8.1 L Total Bilirubin 1.6 H AST 39 ALT 60 H Alkaline Phosphatase 57 Total Protein 5.0 L Albumin 2.4 L Urine Immunofixation see below
[2020-10-16 05:18] LABS: Kappa\\Lambda Light Chains 1.66 (0.26-1.65); Lambda Light Chain 37.9 mg/L (5.7-26.3)
[2020-10-16 08:00] VITALS: BP 99/46; PULSE 66; RESP 30; TEMP 38.5; O2SAT 97
[2020-10-16 09:20] LABS: Anion Gap 7 mmol/L (8-16); Blood Urea Nitrogen 78 mg/dL (9-20); Calcium 8.5 mg/dL (8.4-10.2); Carbon Dioxide 23 mmol/L (22-30); Chloride 115 mmol/L (98-107); Estimated CRCL calculation 23 ml/min; Estimated Glomerular Filt Rate 20; Glucose 127 mg/dL (75-110); Potassium 3.4 mmol/L (3.4-5.0); Sodium 145 mmol/L (137-145)
--- NOTE | 2020-10-16 09:44 | PM.EVENT ---
Event Note Event Note Event Note: Patient is on comfort care measures. I will sign off.
[2020-10-16 09:45] VITALS: RESP 30; O2SAT 97
[2020-10-16] MEDS: MORPHINE SULFATE (*CRX) 2 MG/ML INJ 1 MG IV PUSH ×2 (09:45→11:58)
--- NOTE | 2020-10-16 10:34 | PM.IMPN ---
Progress Note: A&P Assessment and Plan (1) Neutropenia: Qualifiers: Neutropenia type: secondary to cancer chemotherapy Qualified Code(s): D70.1 - Agranulocytosis secondary to cancer chemotherapy; T45.1X5A - Adverse effect of antineoplastic and immunosuppressive drugs, initial encounter Code(s): D70.9 - Neutropenia, unspecified Status: Acute Assessment and Plan: Pt changed to comfort care (2) Sepsis: Code(s): A41.9 - Sepsis, unspecified organism Status: Acute Assessment and Plan: Pt changed to comfort care (3) DONNY (acute kidney injury): Code(s): N17.9 - Acute kidney failure, unspecified Status: Acute Assessment and Plan: Pt changed to comfort care (4) Anemia: Qualifiers: Anemia type: unspecified type Qualified Code(s): D64.9 - Anemia, unspecified Code(s): D64.9 - Anemia, unspecified Status: Acute Assessment and Plan: Pt changed to comfort care (5) Abdominal pain: Code(s): R10.9 - Unspecified abdominal pain Status: Acute Assessment and Plan: Pt changed to comfort care (6) Congestive heart failure: Code(s): I50.9 - Heart failure, unspecified Status: Chronic Assessment and Plan: Pt changed to comfort care (7) Confusion: Code(s): R41.0 - Disorientation, unspecified Status: Acute Assessment and Plan: Pt changed to comfort care (8) Hypomagnesemia: Code(s): E83.42 - Hypomagnesemia Status: Acute Assessment and Plan: Pt changed to comfort care (9) Hypokalemia: Code(s): E87.6 - Hypokalemia Status: Acute Assessment and Plan: Pt changed to comfort care (10) Elevated bilirubin: Code(s): R17 - Unspecified jaundice Status: Acute Assessment and Plan: Pt changed to comfort care Subjective Date/time seen: 10/16/20 10:34 Interval history: Documentation of this patient encounter should include: Reason for the encounter Relevant history Pt is declining heavy breathing more solument not responding to verbal commands. Pt is comfort care. Passing away, Sister informed and aware of his prognosis Review of Systems Review of Systems: ROS unobtainable: Yes unobtainable due to medical condition Exam Narrative: Exam Narrative: General: Patient confused and encephalopathic Cardiovascular: irregular rhythm. Respiratory: few rhonchi Abdomen: Soft, obese abdomen, non tender Extremities: Peripheral pulses intact. Neuro: Confused and encephalopathic Objective Data Vital Signs Vital Signs: Vital Signs - 24 hr 10/15/20 12:00 10/15/20 16:00 10/15/20 16:17 Temperature 36.8 C 37.7 C H Pulse Rate 62 65 Respiratory Rate 26 H 32 H 20 Blood Pressure 94/35 L 104/40 L Pulse Oximetry 94 91 95 10/15/20 20:00 10/16/20 08:00 Temperature 36.2 C L 38.5 C H Pulse Rate 68 66 Respiratory Rate 22 H 30 H Blood Pressure 158/48 H 99/46 L Pulse Oximetry 94 97 Intake/Output Intake/Output: Intake & Output 10/13/20 10/14/20 10/15/20 10/16/20 23:59 23:59 23:59 23:59 Intake Total 1400 2075 1000 0 Output Total 900 625 950 200 Balance 500 1450 50 -200 Meds/Results Medications: Active Medications Generic Name Dose Route Start Last Admin Trade Name Freq PRN Reason Stop Dose Admin Lorazepam 0.5 mg 10/15/20 14:54 10/15/20 16:07 Lorazepam Inj (*Crx) 2 Mg/Ml Vial IV PUSH 0.5 mg Q6H PRN Administration An
[2020-10-16 10:54] LABS: Haptoglobin 139 mg/dL (43-212)
[2020-10-16] MEDS: LORazepam INJ (*CRX) 2 MG/ML VIAL 0.5 MG IV PUSH (11:10)
--- NOTE | 2020-10-16 13:42 | PM.DS ---
DS: Admitting Diagnosis Admitting Diagnosis Admitting Diagnosis: Weakness, nausea, vomiting, and diarrhea. DS: Discharge Diagnosis Discharge Diagnosis (1) Neutropenia: Qualifiers: Neutropenia type: secondary to cancer chemotherapy Qualified Code(s): D70.1 - Agranulocytosis secondary to cancer chemotherapy; T45.1X5A - Adverse effect of antineoplastic and immunosuppressive drugs, initial encounter Code(s): D70.9 - Neutropenia, unspecified Status: Acute Assessment and Plan: Pt is declining heavy breathing more solument not responding to verbal commands. Passing away, Sister informed and aware of his prognosis Pt changed to comfort care. Pt has been discharged to hospice care. Hospice will write orders. (2) Sepsis: Code(s): A41.9 - Sepsis, unspecified organism Status: Acute Assessment and Plan: Pt has been discharged to hospice care. Hospice will write orders. (3) DONNY (acute kidney injury): Code(s): N17.9 - Acute kidney failure, unspecified Status: Acute Assessment and Plan: Pt has been discharged to hospice care. Hospice will write orders. (4) Anemia: Qualifiers: Anemia type: unspecified type Qualified Code(s): D64.9 - Anemia, unspecified Code(s): D64.9 - Anemia, unspecified Status: Acute Assessment and Plan: Pt has been discharged to hospice care. Hospice will write orders. (5) Abdominal pain: Code(s): R10.9 - Unspecified abdominal pain Status: Acute Assessment and Plan: Pt has been discharged to hospice care. Hospice will write orders. (6) Congestive heart failure: Code(s): I50.9 - Heart failure, unspecified Status: Chronic Assessment and Plan: Pt has been discharged to hospice care. Hospice will write orders. (7) Confusion: Code(s): R41.0 - Disorientation, unspecified Status: Acute Assessment and Plan: Pt has been discharged to hospice care. Hospice will write orders. (8) Hypomagnesemia: Code(s): E83.42 - Hypomagnesemia Status: Acute Assessment and Plan: Pt has been discharged to hospice care. Hospice will write orders. (9) Hypokalemia: Code(s): E87.6 - Hypokalemia Status: Acute Assessment and Plan: Pt has been discharged to hospice care. Hospice will write orders. (10) Elevated bilirubin: Code(s): R17 - Unspecified jaundice Status: Acute Assessment and Plan: Pt has been discharged to hospice care. Hospice will write orders. DS: Summary Hospital Course Hospital Course: Pt is declining heavy breathing more somnolent not responding to verbal commands. Passing away, Sister informed and aware of his prognosis. Pt has been discharged to hospice services. Time Spent with Patient Time attestation: Total time spent providing and/or coordinating discharge services:40 minutes on day of discharge Exam Narrative: Exam Narrative: General: Patient confused and encephalopathic Cardiovascular: irregular rhythm. Respiratory: few rhonchi Abdomen: Soft, obese abdomen, non tender Extremities: Peripheral pulses intact. Neuro: Confused and encephalopathic DS: Data Data Completed and Pending Labs on day of discharge: Labs from last 24 hours 10/16/20 10/11/20 10/11/20 09:03 17:55 16:37 Haptoglobin 139 Sodium 145 Potassium 3.4 Chloride 115 H Carbon Dioxide 23 Anion Gap 7 L BUN 78 H D Creatinine
[2020-10-18 00:16] LABS: Complement Total CH50 >60 U/mL (31-60)
--- NOTE | 2020-11-10 14:09 | WPDNEUROPN ---
Objective Data Meds/Results Radiology Results: ITS Impressions Abdomen/Pelvis CT 10/11/20 07:17 IMPRESSION: Colonic air fluid levels, consistent with clinical presentation of diarrhea; no bowel obstruction Normal appendix Nonspecific thickening of the distal esophageal wall Small sliding hiatal hernia Bilateral lower lobe infiltrate and/atelectasis Cardiomegaly, coronary artery calcification Cholelithiasis Splenomegaly Bilateral renal atrophy Bilateral nonobstructive nephrolithiasis Left renal cyst Venous Doppler Study 10/11/20 12:04 IMPRESSION: 1. No deep venous thrombosis. Renal Ultrasound 10/11/20 12:30 IMPRESSION: 1. Mild atrophy of left kidney. No hydronephrosis. Chest X-Ray 10/12/20 09:09 IMPRESSION: 1. Airspace opacities in the lower lung zones with worsening on the left, consistent with atelectasis versus pneumonia. 2. Cardiomegaly. Abdomen Ultrasound 10/12/20 12:01 IMPRESSION: 1. Diffuse hepatic steatosis. 2. Cholelithiasis. No evidence of acute cholecystitis. Head CT 10/14/20 13:48 IMPRESSION: 1. 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 2. Stable moderate nonspecific cerebral white matter disease, which likely represents chronic small vessel ischemic disease. Quality VTE Prophylaxis VTE prophylaxis: mechanical ordered
== END 2020-10-16 12:39 | disposition hospice, inpatient (51) | DRG 871 ==
LOC: ANHED 13:38 → ANH2MED 13:41 → ANHIMU 10-12 10:23 → ANH2MED 10-15 15:53
PROVIDERS: Emergency Medicine; Internal Medicine; Internal Medicine Nephrology; Physician Assistant; Admitting Provider Internal Medicine; Emergency Provider Nurse Practitioner; PCP Emergency Medicine; Visit Provider Family Medicine
DX: A41.9 Sepsis, unspecified organism (principal); G93.41 Metabolic encephalopathy; D61.810 Antineoplastic chemotherapy induced pancytopenia; N17.0 Acute kidney failure with tubular necrosis; R17 Unspecified jaundice; I50.32 Chronic diastolic (congestive) heart failure; I48.20 Chronic atrial fibrillation, unspecified; Z68.41 Body mass index [BMI] 40.0-44.9, adult; R50.81 Fever presenting with conditions classified elsewhere; T45.1X5A Adverse effect of antineoplastic and immunosuppressive drugs, initial encounter; E83.42 Hypomagnesemia; E66.01 Morbid (severe) obesity due to excess calories; E87.6 Hypokalemia; N40.0 Benign prostatic hyperplasia without lower urinary tract symptoms; J44.9 Chronic obstructive pulmonary disease, unspecified; I25.10 Atherosclerotic heart disease of native coronary artery without angina pectoris; E86.0 Dehydration; D46.9 Myelodysplastic syndrome, unspecified; G47.33 Obstructive sleep apnea (adult) (pediatric); M19.90 Unspecified osteoarthritis, unspecified site; E55.9 Vitamin D deficiency, unspecified; M10.9 Gout, unspecified; Z95.5 Presence of coronary angioplasty implant and graft; Z95.1 Presence of aortocoronary bypass graft; Z87.891 Personal history of nicotine dependence
CPT/HCPCS: 36415; 36430; 36600; 51701; 70450; 71045; 71046; 74176; 76705; 76775; 80048; 80053; 80069; 80076; 80202; 81001; 82140; 82274; 82375; 82550; 82570; 82805; 83010; 83050; 83605; 83690; 83735; 83880; 83883; 84100; 84156; 84300; 84443; 84484; 85014; 85018; 85025; 85027; 85055; 85610; 85652; 85730; 85999; 86038; 86140; 86160; 86162; 86334; 86335; 86850; 86900; 86901; 86923; 87040; 87045; 87046; 87086; 87324; 87427; 93005; 93970; 96365; 96366; 96367; 96372; 96374; 96375; 96376; 97110; 97161; 97165; 99285; A9270; C9113; G0378; J0131; J0692; J0696; J1442; J1940; J2060; J2270; J2405; J3370; J3475; J7030; J7050; P9016

== ENCOUNTER 2020-10-16 12:40 | HOS | payer OTHER, SELFPAY ==
[2020-10-16 14:19] VITALS: O2SAT 95
[2020-10-16] MEDS: MORPHINE SULFATE INJ (*CRX) 50 MG in SODIUM CHLORIDE 0.9% IV 95 ML IV CONT (15:17)
[2020-10-16 17:00] VITALS: TEMP 36.7
--- NOTE | 2020-10-16 17:15 | PC.NURSE ---
Sedation scale on AUG for Morphine drip is not available. Spoke with Charles from pharmacy who stated he would put in a ticket for IT to fix this issue. Will continue to monitor sedation. Patient on Hospice and is resting comfortably.
[2020-10-16] MEDS: LORazepam INJ (*CRX) 2 MG/ML VIAL 0.5 MG IV PUSH (18:37)
[2020-10-16 20:59] VITALS: O2SAT 96
[2020-10-16 21:12] VITALS: BP 108/38; PULSE 77; RESP 24; TEMP 37.2; O2SAT 96
[2020-10-16] MEDS: MORPHINE SULFATE (*CRX) 2 MG/ML INJ 1 MG IV PUSH (22:14)
[2020-10-17] MEDS: LORazepam INJ (*CRX) 2 MG/ML VIAL 0.5 MG IV PUSH (01:02)
[2020-10-17] MEDS: GLYCOPYRROLATE INJ (*SP) 0.2 MG/ML VIAL 0.1 MG IV PUSH ×2 (01:07→05:13)
[2020-10-17 04:00] VITALS: BP 89/31; PULSE 78; RESP 28; TEMP 38.4; O2SAT 92
[2020-10-17] MEDS: MORPHINE SULFATE (*CRX) 2 MG/ML INJ 1 MG IV PUSH (05:12)
[2020-10-17] MEDS: BISACODYL 10 MG SUPPOSITORY RECTAL (05:12)
--- NOTE | 2020-10-17 21:04 | PM.IMHP ---
H&P: HPI History of Present Illness Date/Time: 10/17/20 21:04 Chief Complaint: Uncontrolled dyspnea Narrative: 70 y/o male6 months ago was living at home with a friend. He reuired no assist or minimal assist with 6 ADLs. He ambulated with a cane and was continent of bowel and bladder. He was A/o x 4 and PPS was 70. He was recently diagnosed with MDS and had been treated with intermittent transfusion. He was admitted to acute care at [place] for neutropenic fever with septic shock and DONNY and confusion. He failed to respond to broad spectrum antibx and fluids and POA opted for comfort care only. He was unresponsive to verbal and tactile stimuli with restlessness and labored breathing. PPS was 10. Review of Systems Review of Systems: ROS unobtainable: Yes unobtainable due to medical condition [facility] Past Medical History Medical History Benign prostatic hyperplasia Cerebrovascular accident Old left occipital lobe infarct noted on brain CT on 10/10/2020. Chronic obstructive pulmonary disease Congestive heart failure Echo on 09/09/2020 showed normal left ventricular systolic function and grade 1 diastolic dysfunction. Coronary artery disease Status post CABG in 2010. 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 Followed by Dr. Lopez. Obstructive sleep apnea Patient does not use CPAP. Osteoarthritis Paroxysmal atrial fibrillation Vitamin D deficiency disease Surgical History Surgical History History of coronary angioplasty with insertion of stent (~1996) History of coronary artery bypass graft (~2010) Family History Family History Sibling Family history of cardiovascular disease Familial primary pulmonary hypertension Family history of chronic obstructive pulmonary disease Family history of sleep apnea Diabetes mellitus Father Family history of cardiovascular disease, Onset Age: 65 Family history of coronary artery disease Mother Diabetes mellitus Family history of malignant neoplasm, Onset Age: 72 Family history of liver disease Social History Social History Social History: Surrogate decision maker: Aminata Arteaga, sister. Code status: Full code. Smoking packs per day: 1 Smoking cigarettes per day: 20.0 Years smoked: 40 Smoking pack-years: 40.00 Smoking status: Former smoker Second hand tobacco smoke exposure: No Alcohol intake: current Drinks per week: 1 Substance use: former Substance use type: marijuana Other substance usage details: Years ago he used hallucinogens, mushrooms. Additional living arrangements comments: The patient lives in [place]. A friend lives at home with him. Additional occupation/education comments: Disabled. Gender identity (if verbalized by the patient): Male Spiritual care concerns: No Meds Home Medications and Allergies Home Medications Medication Instructions Recorded Confirmed Type allopurinol 300 mg PO DAILY 10/16/20 10/16/20 History aspirin [Adult Aspirin] 81 mg PO DAILY 10/16/20 10/16/20 History levofloxacin 500 mg PO DAILY 10/16/20 10/16/20 History loratadine [Claritin] 10 mg PO DAILY 10/16/20 10/16/20 History posaconazole 300 mg PO TID 10/16/20 10/16/20 History simvastatin 20 mg PO QPM 10/16/20 10/16/20 History tamsulosin 0.4 mg PO DAILY 10/16/20 10/16/20 History valacyclovir 500 mg PO DAILY 10/16/20 10/16/20 History Allergies Allergy/AdvReac Type Severity Reaction Status Date / Time Penicillins Allergy Unknown Unknown Verified 10/16/20 14:20 shellfish derived Allergy Unknown Verified 10/16/20 14:20 Vital Signs Vital Signs - 24 hr
--- NOTE | 2020-10-17 21:16 | PM.DDS ---
Discharge Sum: Prov Provider Primary care physician: Brian Lara MD Admitting provider: Nolan Lobo MD Discharge Sum: Diag Contributing Factors (1) Myelodysplasia (myelodysplastic syndrome): (2) Neutropenic fever: (3) Sepsis: (4) DONNY (acute kidney injury): (5) Congestive heart failure: (6) COPD (chronic obstructive pulmonary disease): (7) Afib: (8) Coronary artery disease: Discharge Sum: Summary Date and Time Date of admission: 10/16/20 13:50 Summary Details: Admitted to inpatient hospice for palliative care due to uncontrolled dyspnea and restlessness. Medications were titrated to comfort. Patient peacefully. Additional Data Attending physician: Nolan Lobo MD
== END 2020-10-17 06:25 | disposition expired | DRG 871 ==
PROVIDERS: Admitting Provider Internal Medicine; PCP Emergency Medicine; Visit Provider Internal Medicine
DX: A41.9 Sepsis, unspecified organism (principal); R65.21 Severe sepsis with septic shock; N17.9 Acute kidney failure, unspecified; D46.9 Myelodysplastic syndrome, unspecified; D70.9 Neutropenia, unspecified; R50.81 Fever presenting with conditions classified elsewhere; J44.9 Chronic obstructive pulmonary disease, unspecified; I48.91 Unspecified atrial fibrillation; I25.119 Atherosclerotic heart disease of native coronary artery with unspecified angina pectoris; Z51.5 Encounter for palliative care; I50.9 Heart failure, unspecified
CPT/HCPCS: A9270; J2060; J2270